=== PATIENT | female | born 1990 | race Caucasian/White ===

== ENCOUNTER 2017-04-11 07:52 | Emergency (ER) | payer MEDICAID ==
[~2017-04-11] VITALS: Ht 175.3 cm; Wt 90.7 kg
[~2017-04-11 07:52] MED LIST: AC325T GT; ACET1TAB43 PO; ACHD5005 PO; ALPR.5T PO; ALPR1T PO; AMOX-355 PO; BENZ56AE TP; BIRTH CONTROL; CLIN-62 PO; CODE-54 PO; CPR500T PO; DCS100C PO; DIPH25TA82 PO; ESCI20TA2 PO; ESCT10T PO; FERR-74 PO; FRS325T PO; HYDR-3583 PO; HYDR-3812 PO; HYDR-700 PO; HYDR1CAP2 PO; IBP600T1 PO; IBP800T PO; IBUP-1773 PO; IRON1TAB94 PO; LEVO175T5 PO; MTR500T; NAPR-243 PO; ONDAN4ODT PO; PENI500T PO; PRD20T PO; PREN-115 PO; PREN-46 PO; PRENATAL PLUS-1 EACH; PRM25T PO; PTU50T PO; SERT20OR PO; SULF1TAB38 PO; TRM50T PO
[2017-04-11 08:39] LABS: BILIRUBIN,URINE NEGATIVE (NEGATIVE); KETONES,URINE NEGATIVE (NEGATIVE); LEUKOCYTE ESTERASE ,URINE 1+ (NEGATIVE); NITRITE,URINE NEGATIVE (NEGATIVE); PH,URINE 6 (5-9); PROTEIN,URINE 3+ (NEGATIVE); UROBILINOGEN,URINE NORMAL (NORMAL)
[2017-04-11 08:39] LABS: BASOPHILS % (AUTO) 0 % (0-10); EOSINOPHILS # (AUTO) 0.1 10^3/uL (0.0-0.3); EOSINOPHILS % (AUTO) 1 % (0-10); LYMPHOCYTES # (AUTO) 1.4 X 10^3 (1.0-4.0); LYMPHOCYTES % (AUTO) 19 % (12-44); MEAN CORPUSCULAR HEMOGLOBIN 29 PG (25-34); MEAN CORPUSCULAR HGB CONC 34 G/DL (32-36); MEAN CORPUSCULAR VOLUME 86 FL (80-99); MEAN PLATELET VOLUME 10.6 FL (7.4-10.4); MONOCYTES # (AUTO) 0.5 X 10^3 (0.0-1.0); MONOCYTES % (AUTO) 6 % (0-12); NEUTROPHILS # (AUTO) 5.4 X 10^3 (1.8-7.8); NEUTROPHILS % (AUTO) 73 % (42-75); PLATELET COUNT 193 10^3/uL (130-400); RED BLOOD COUNT 5.06 10^6/uL (4.35-5.85); RED CELL DISTRIBUTION WIDTH 14.7 % (10.0-14.5); WHITE BLOOD COUNT 7.4 10^3/uL (4.3-11.0)
[2017-04-11 09:16] LABS: WBC,URINE 0-2 /HPF
--- NOTE | 2017-04-11 09:45 | ED GU-Female ---
General Chief Complaint: -Female Stated Complaint: ABD CRAMPING/BLOOD CLOTS Nursing Triage Note: AMBULATED TO ROOM 09 WITH COMPLAINTS OF STARTING HER PERIOD ON NORMAL TIME YESTERDAY BUT STATES SHE HAS PASSED X5-6 LARGE BLOOD CLOTS WHICH IS NOT NORMAL FOR HER. Nursing Sepsis Screen: No Definite Risk Source: patient Exam Limitations: no limitations History of Present Illness Time seen by provider: 09:41 Initial Comments The patient is a 26-year-old white female who presents with the complaints of suprapubic clotting and menstrual flow with blood clots. She states her period began yesterday and on time. She has never had cramps or clots before. She has 4 children ranging from 8 months through 8 years in age. There has been no fever or abdominal pain Timing/Duration: yesterday Severity/Quality: moderate Location: suprapubic Allergies and Home Medications Allergies Coded Allergies: Pertussis Vaccine,Adsorbed (Unverified Allergy, 02/01/11) alprazolam (Verified Allergy, 02/17/12) Home Medications No Active Prescriptions or Reported Meds Constitutional: see HPI EENTM: no symptoms reported Respiratory: no symptoms reported Cardiovascular: no symptoms reported Gastrointestinal: no symptoms reported Genitourinary: see HPI Musculoskeletal: no symptoms reported Skin: no symptoms reported Psychiatric/Neurological: No Symptoms Reported Endocrine: No Symptoms Reported Hematologic/Lymphatic: No Symptoms Reported Past Xwmkdxo-Qctrfw-Eaoqav Hx Patient Social History Alcohol Use: Denies Use Recreational Drug Use: No Smoking Status: Current Everyday Smoker Type Used: Cigarettes Recent Foreign Travel: No Contact w/Someone Who Travel: No Recent Infectious Disease Expo: No Recent Hopitalizations: No Immunizations Up To Date Tetanus Booster (TDap): Less than 5yrs PED Vaccines UTD: Yes Seasonal Allergies Seasonal Allergies: No Surgeries HX Surgeries: Yes (D&C) Surgeries: Tonsillectomy Respiratory Hx Respiratory Disorders: No Cardiovascular Hx Cardiac Disorders: No Neurological Hx Neurological Disorders: No Reproductive System Hx Reproductive Disorders: No Sexually Transmitted Disease: No HIV/AIDS: No Female Reproductive Disorders: Denies Genitourinary Hx Genitourinary Disorders: No Gastrointestinal Hx Gastrointestinal Disorders: No Musculoskeletal Hx Musculoskeletal Disorders: No Endocrine Hx Endocrine Disorders: Yes Endocrine Disorders: Hyperthyroidism HEENT HX ENT Disorders: No Cancer Hx Cancer: No Psychosocial Hx Psychiatric Problems: No Behavioral Health Disorders: Anxiety, Depression Integumentary HX Skin/Integumentary Disorder: No Blood Transfusions Hx Blood Disorders: No Adverse Reaction to a Blood Tr: No Physical Exam Vital Signs Vital Sign - Last 12Hours 04/11/17 08:00 Temp 98.0 Pulse 79 Resp 16 B/P (MAP) 121/87 Pulse Ox 98 Capillary Refill : Less Than 3 Seconds General Appearance: mild distress HEENT: normal ENT inspection Neck: full range of motion Cardiovascular: normal peripheral pulses, regular rate, rhythm, no edema, no gallop, no JVD, no murmur Respiratory: chest non-tender, lungs clear, normal breath sounds, no respiratory distress, no accessory muscle use, respiratory distress Gastrointestinal: normal bowel sounds, non tender, soft, no organomegaly, no pulsatile mass, abnormal bowel sounds 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, no motor/sensory deficits, alert, normal mood/affect, oriented x 3 Skin: normal color, warm/dry, cyanosis, cool, diaphoresis, pallor Lymphatic: no adenopathy Progress/Results/Core Measures Results/Orders Lab Results Laboratory Tests Test 04/11/17 08:27 04/11/17 08:30 04/11/17 08:36 Range/Units White Blood Count 7.4 4.3-11.0 10^3/uL Red Blood Count 5.06 4.35-5.85 10^6/uL Hemoglobin 14.6 11.5-16.0 G/DL Hematocrit 44 35-52 % Mean Corpuscular Volume 86 80-99 FL Mean Corpuscular Hemoglobin 29 25-34 PG Mean Corpuscular Hemoglobin Concent 34 32-36 G/DL Red Cell Distribution Width 14.7 H 10.0-14.5 % Platelet Count 193 130-400 10^3/uL Mean Platelet Volume 10.6 H 7.4-10.4 FL Neutrophils (%) (Auto) 73 42-75 % Lymphocytes (%) (Auto) 19 12-44 % Monocytes (%) (Auto) 6 0-12 % Eosinophils (%) (Auto) 1 0-10 % Basophils (%) (Auto) 0 0-10 % Neutrophils # (Auto) 5.4 1.8-7.8 X 10^3 Lymphocytes # (Auto) 1.4 1.0-4.0 X 10^3 Monocytes # (Auto) 0.5 0.0-1.0 X 10^3 Eosinophils # (Auto) 0.1 0.0-0.3 10^3/uL Basophils # (Auto) 0.0 0.0-0.1 10^3/uL Urine Color YELLOW Urine Clarity CLEAR Urine pH 6 5-9 Urine Specific [place] 1.025 H 1.016-1.022 Urine Protein 3+ H NEGATIVE Urine Glucose (UA) NEGATIVE NEGATIVE Urine Ketones NEGATIVE NEGATIVE Urine Nitrite NEGATIVE NEGATIVE Urine Bilirubin NEGATIVE NEGATIVE Urine Urobilinogen NORMAL NORMAL MG/DL Urine Leukocyte Esterase 1+ H NEGATIVE Urine RBC (Auto) 1+ H NEGATIVE Urine RBC RARE /HPF Urine WBC 0-2 /HPF Urine Squamous Epithelial Cells 2-5 /HPF Urine Crystals NONE /LPF Urine Bacteria TRACE /HPF Urine Casts NONE /LPF Urine Mucus SMALL H /LPF Urine Culture Indicated NO Urine Test NEGATIVE NEGATIVE My Orders Orders - TEE LOPEZ MD Cbc With Automated Diff (04/11/17 08:18) Ua Culture If Indicated (04/11/17 08:18) Hcg,Qualitative Urine (04/11/17 08:35) Vital Signs/I&O Vital Sign - Last 12Hours 04/11/17 08:00 Temp 98.0 Pulse 79 Resp 16 B/P (MAP) 121/87 Pulse Ox 98 Blood Pressure Mean: 98 Departure Impression Impression: Primary Impression: dysmenorrhea Disposition: 01 HOME, SELF-CARE Condition: Stable/Unchanged Departure-Patient Inst. Decision time for Depature: 09:43 Referrals: GLEN VOGEL DO (PCP/Family) Primary Care Physician Add. Discharge Instructions: All discharge instructions reviewed with patient and/or family. Voiced understanding. All the you have not suffered before cramps and clots are not unusual with normal periods In the future you can use ibuprofen 600 mg 3 or 4 times daily for menstrual cramps. Usually they are required only for 2 or 3 days during cycle. If problems consult your OB provider Scripts No Active Prescriptions or Reported Meds TEE LOPEZ MD Apr 11, 2017 09:45
[2017-04-11 09:49] VITALS: BP 122/90
== END 2017-04-11 09:49 | disposition home or self-care (01) ==
LOC: EDUNIT# 07:52 → ER 07:54
DX: N94.6 Dysmenorrhea, unspecified (principal); F17.210 Nicotine dependence, cigarettes, uncomplicated
CPT/HCPCS: 36415; 81000; 84703; 85025; 99283

== ENCOUNTER 2017-06-18 08:29 | Emergency (ER) | payer MEDICAID ==
[~2017-06-18] VITALS: Ht 175.3 cm; Wt 89.8 kg
[2017-06-18] MEDS ORDERED: LEVO50TA6 (08:48)
--- NOTE | 2017-06-18 09:03 | ED Respiratory ---
General Chief Complaint: Cough/Cold/Flu Symptoms Stated Complaint: N/V/COUGH,ACHES Nursing Triage Note: ARRIVED VIA AMB TO ROOM 06 WITHOUT DIFFICULTY. PT IS 10 WEEKS GESTATION AND COMPLAINS OF COUGH, SORE THROAT, RIGHT EARACHE, AND VOMITED X2 LAST NOC BUT NOT THIS AM. Source: patient Exam Limitations: no limitations History of Present Illness Time seen by provider: 08:47 Initial Comments Here with report of cough, sore throat, right earache and vomiting twice last night. Overall not feeling well but a little better today. She is concerned because she is was to work today and she has 3 children at home and was hopeful that there is some treatment available. Also complicated by the fact that she is 10 weeks and has Graves' disease. She is not vomiting this morning. Does complain of moderate nasal congestion. Reports fever subjectively at home as well as chills. Timing/Duration: yesterday, getting worse Severity: moderate Prior Episodes/Possible Cause: occasional episodes Associated Symptoms: cough, earache, fever/chills, nasal congestion, nasal drainage, No shortness of breath, sore throat, No wheezing Allergies and Home Medications Allergies Coded Allergies: Pertussis Vaccine,Adsorbed (Unverified Allergy, 02/01/11) alprazolam (Verified Allergy, 02/17/12) Home Medications Levothyroxine Sodium 50 Mcg Tablet, #30 (Reported) Constitutional: see HPI, chills, fever EENTM: see HPI, throat pain Respiratory: see HPI Cardiovascular: no symptoms reported Gastrointestinal: No diarrhea, nausea, vomiting Genitourinary: no symptoms reported : Yes Musculoskeletal: muscle pain (bodyaches) Skin: no symptoms reported All Other Systems Reviewed Negative Unless Noted: Yes Past Ehxadof-Jdjjvx-Jnkuzx Hx Patient Social History Alcohol Use: Denies Use Recreational Drug Use: No Smoking Status: Current Everyday Smoker Type Used: Cigarettes Recent Foreign Travel: No Contact w/Someone Who Travel: No Recent Infectious Disease Expo: No Recent Hopitalizations: No Immunizations Up To Date Tetanus Booster (TDap): Less than 5yrs PED Vaccines UTD: Yes Seasonal Allergies Seasonal Allergies: No Surgeries HX Surgeries: Yes (D&C) Surgeries: Tonsillectomy Respiratory Hx Respiratory Disorders: No Cardiovascular Hx Cardiac Disorders: No Neurological Hx Neurological Disorders: No Reproductive System Hx Reproductive Disorders: No Sexually Transmitted Disease: No HIV/AIDS: No Female Reproductive Disorders: Denies Genitourinary Hx Genitourinary Disorders: No Gastrointestinal Hx Gastrointestinal Disorders: No Musculoskeletal Hx Musculoskeletal Disorders: No Endocrine Hx Endocrine Disorders: Yes Endocrine Disorders: Hyperthyroidism HEENT HX ENT Disorders: No Cancer Hx Cancer: No Psychosocial Hx Psychiatric Problems: No Behavioral Health Disorders: Anxiety, Depression Integumentary HX Skin/Integumentary Disorder: No Blood Transfusions Hx Blood Disorders: No Adverse Reaction to a Blood Tr: No Reviewed Nursing Assessment Reviewed/Agree w Nursing PMH: Yes Family Medical History Significant Family History: No Pertinent Family Hx Physical Exam Vital Signs Vital Sign - Last 12Hours 06/18/17 08:39 Temp 96.9 Pulse 84 Resp 16 B/P (MAP) 139/92 Pulse Ox 99 Capillary Refill : Less Than 3 Seconds General Appearance: WD/WN, no apparent distress HEENT: PERRL/EOMI, pharyngeal erythema (mild with mild uvular swelling and erythema), other (moderate bilateral nasal congestion with clear rhinorrhea) Respiratory: lungs clear, normal breath sounds, other (course sounding cough) Cardiovascular: regular rate, rhythm, no murmur Gastrointestinal: non tender, soft Extremities: non-tender, normal inspection Neurologic/Psychiatric: alert, oriented x 3 Skin: normal color, warm/dry Progress/Results/Core Measures Results/Orders Vital Signs/I&O Vital Sign - Last 12Hours 06/18/17 08:39 Temp 96.9 Pulse 84 Resp 16 B/P (MAP) 139/92 Pulse Ox 99 Blood Pressure Mean: 108 Progress Note : Progress Note Seen and evaluated. Discharged home with return precautions. Patient verbalize understanding instructions and agreement with plan. Departure Impression Impression: Primary Impression: Upper respiratory infection Qualified Codes: J06.9 - Acute upper respiratory infection, unspecified Disposition: HOME, SELF-CARE Condition: Stable Departure-Patient Inst. Decision time for Depature: 09:02 Referrals: AMOS HENLEY DO (PCP) Primary Care Physician NAYA CALERO (Family) Primary Care Physician Patient Instructions: Nausea and Vomiting of (DC), Viral Upper Respiratory Infection, Adult (DC) Add. Discharge Instructions: All discharge instructions reviewed with patient and/or family. Voiced understanding. You may take Tylenol 1000 mg every 6 hours as needed for fever or pain. You may take Benadryl 25 mg every 6 hours as needed for nasal congestion. Clear liquid diet for 24 hours and then advance as tolerated. Follow-up with your Dr. in 2-3 days for recheck and further evaluation. Return for worse pain, fever, vomiting, weakness, breathing problems or other concerns as needed. Scripts Ondansetron (Ondansetron Odt) 4 Mg Tab.rapdis 4 MG PO Q6H Y for NAUSEA/VOMITING, #5 TAB 0 Refills Prov: JEREMIAH VICENTE MD 06/18/17 Work/School Note: Work Release Form Date Seen in the Emergency Department: Jun 18, 2017 Return to Work: Jun 20, 2017 Restrictions: No Restrictions JEREMIAH VICENTE MD Jun 18, 2017 09:03
[2017-06-18] MEDS ORDERED: ONDA4TAB11 PO (09:04)
[2017-06-18 09:08] VITALS: BP 139/92
== END 2017-06-18 09:08 | disposition home or self-care (01) ==
LOC: EDUNIT# 08:29 → ER 08:32
DX: O99.511 Diseases of the respiratory system complicating pregnancy, first trimester (principal); J06.9 Acute upper respiratory infection, unspecified; O99.341 Other mental disorders complicating pregnancy, first trimester; F41.9 Anxiety disorder, unspecified; F32.9 Major depressive disorder, single episode, unspecified; O99.281 Endocrine, nutritional and metabolic diseases complicating pregnancy, first trimester; E05.00 Thyrotoxicosis with diffuse goiter without thyrotoxic crisis or storm; O99.331 Smoking (tobacco) complicating pregnancy, first trimester; F17.210 Nicotine dependence, cigarettes, uncomplicated; Z90.89 Acquired absence of other organs
CPT/HCPCS: 99282

== ENCOUNTER 2017-08-08 19:02 | Emergency (ER) | payer MEDICAID ==
[~2017-08-08] VITALS: Ht 175.3 cm; Wt 89.9 kg
[~2017-08-08 19:02] MED LIST changes: +LEVO50TA6; +ONDA4TAB11 PO
[2017-08-08 19:33] LABS: BILIRUBIN,URINE NEGATIVE (NEGATIVE); KETONES,URINE NEGATIVE (NEGATIVE); LEUKOCYTE ESTERASE ,URINE NEGATIVE (NEGATIVE); NITRITE,URINE NEGATIVE (NEGATIVE); PH,URINE 7 (5-9); PROTEIN,URINE 2+ (NEGATIVE); UROBILINOGEN,URINE NORMAL (NORMAL)
--- NOTE | 2017-08-08 19:39 | ED Back Pain ---
General Chief Complaint: Back Problems Stated Complaint: LOWER BACK PAIN,17 WKS PREG Nursing Triage Note: C/O bilat flank pain without urinary sx. is 17 gravid. states at being on month was spilling protein and had 24 urine- waiting on results Nursing Sepsis Screen: No Definite Risk Source of Information: Patient Exam Limitations: No Limitations History of Present Illness Time Seen by Provider: 19:36 Initial Comments To ER with reports of bilateral flank pain since yesterday. No associated fevers chills nausea dysuria abdominal pain. She is 17 weeks G7. She states that usually during each of her pregnancies historically she develops either kidney stones or kidney infections. She denies any vaginal bleeding Timing/Duration: 1-2 Days Severity: Moderate Associated Symptoms: No fever, lower back pain Allergies and Home Medications Allergies Coded Allergies: Pertussis Vaccine,Adsorbed (Unverified Allergy, 02/01/11) alprazolam (Verified Allergy, 02/17/12) Home Medications Levothyroxine Sodium 50 Mcg Tablet, #30 (Reported) Ondansetron 4 Mg Tab.rapdis, 4 MG PO Q6H PRN for NAUSEA/VOMITING, #5 Ref 0 Prescribed by: JEREMIAH VICENTE on 06/18/17 0904 Constitutional: see HPI, No chills, No fever EENTM: see HPI Respiratory: no symptoms reported Cardiovascular: no symptoms reported Gastrointestinal: No abdominal pain, No nausea, No vomiting Genitourinary: no symptoms reported : Yes LMP: April 06, 2017 Control/STD Prophylaxis: None Musculoskeletal: see HPI, back pain Skin: no symptoms reported Past Amvjoyq-Umtunx-Semmne Hx Patient Social History Alcohol Use: Denies Use Recreational Drug Use: Yes (Previous history) Smoking Status: Current Everyday Smoker Type Used: Cigarettes Recent Foreign Travel: No Contact w/Someone Who Travel: No Recent Infectious Disease Expo: No Recent Hopitalizations: No Physical Abuse: No Sexual Abuse: No Mistreated: No Fear: No Immunizations Up To Date Tetanus Booster (TDap): Less than 5yrs PED Vaccines UTD: Yes Seasonal Allergies Seasonal Allergies: No Surgeries History of Surgeries: Yes (D&C) Surgeries: Tonsillectomy Respiratory History of Respiratory Disorde: No Cardiovascular History of Cardiac Disorders: No Neurological History of Neurological Disord: Yes Neurological Disorders: Headaches /Migraines Reproductive System Expected Date of Delivery: Jan 11, 2018 Hx : 4 Hx Para: 7 Hx Total # of Abortions (Spona: 3 Hx Reproductive Disorders: No Sexually Transmitted Disease: No HIV/AIDS: No Female Reproductive Disorders: Denies Genitourinary History of Genitourinary Disor: No Gastrointestinal History of Gastrointestinal Di: No Musculoskeletal History of Musculoskeletal Dis: No Endocrine History of Endocrine Disorders: Yes (GRAVES DZ) Endocrine Disorders: Hyperthyroidism HEENT History of HEENT Disorders: No Cancer History of Cancer: No Psychosocial History of Psychiatric Problem: No Behavioral Health Disorders: Anxiety, Depression Suicide Risk Score: 0 Integumentary History of Skin or Integumenta: No Blood Transfusions History of Blood Disorders: No Adverse Reaction to a Blood Tr: No Family Medical History Significant Family History: No Pertinent Family Hx Physical Exam Vital Signs Vital Sign - Last 12Hours 08/08/17 19:23 Pulse 77 Resp 18 B/P (MAP) 132/84 Pulse Ox 100 Capillary Refill : Less Than 3 Seconds General Appearance: No Apparent Distress, WD/WN HEENT: PERRL/EOMI, TMs Normal Neck: Full Range of Motion, Normal Inspection Cardiovascular: Regular Rate, Rhythm, Normal Peripheral Pulses Respiratory: Normal Breath Sounds, No Accessory Muscle Use, No Respiratory Distress Gastrointestinal: Normal Bowel Sounds, Non Tender, Soft Back: CVA Tenderness (L), CVA Tenderness (R) Extremity: Normal Capillary Refill, Normal Inspection, Normal Range of Motion Neurologic/Psychiatric: Alert, Oriented x3, No Motor/Sensory Deficits Skin: Normal Color, Warm/Dry Progress/Results/Core Measures Results/Orders Lab Results Laboratory Tests Test 08/08/17 19:20 08/08/17 19:40 Range/Units Urine Color YELLOW Urine Clarity CLEAR Urine pH 7 5-9 Urine Specific [place] 1.005 L 1.016-1.022 Urine Protein 2+ H NEGATIVE Urine Glucose (UA) NEGATIVE NEGATIVE Urine Ketones NEGATIVE NEGATIVE Urine Nitrite NEGATIVE NEGATIVE Urine Bilirubin NEGATIVE NEGATIVE Urine Urobilinogen NORMAL NORMAL MG/DL Urine Leukocyte Esterase NEGATIVE NEGATIVE Urine RBC (Auto) NEGATIVE NEGATIVE Urine RBC NONE /HPF Urine WBC 0-2 /HPF Urine Squamous Epithelial Cells 10-25 H /HPF Urine Crystals NONE /LPF Urine Bacteria FEW H /HPF Urine Casts NONE /LPF Urine Mucus NEGATIVE /LPF Urine Culture Indicated NO White Blood Count 9.5 4.3-11.0 10^3/uL Red Blood Count 4.15 L 4.35-5.85 10^6/uL Hemoglobin 12.3 11.5-16.0 G/DL Hematocrit 36 35-52 % Mean Corpuscular Volume 86 80-99 FL Mean Corpuscular Hemoglobin 30 25-34 PG Mean Corpuscular Hemoglobin Concent 35 32-36 G/DL Red Cell Distribution Width 13.3 10.0-14.5 % Platelet Count 199 130-400 10^3/uL Mean Platelet Volume 10.1 7.4-10.4 FL Neutrophils (%) (Auto) 70 42-75 % Lymphocytes (%) (Auto) 24 12-44 % Monocytes (%) (Auto) 5 0-12 % Eosinophils (%) (Auto) 1 0-10 % Basophils (%) (Auto) 0 0-10 % Neutrophils # (Auto) 6.6 1.8-7.8 X 10^3 Lymphocytes # (Auto) 2.3 1.0-4.0 X 10^3 Monocytes # (Auto) 0.5 0.0-1.0 X 10^3 Eosinophils # (Auto) 0.1 0.0-0.3 10^3/uL Basophils # (Auto) 0.0 0.0-0.1 10^3/uL Sodium Level 137 135-145 MMOL/L Potassium Level 3.1 L 3.6-5.0 MMOL/L Chloride Level 106 98-107 MMOL/L Carbon Dioxide Level 20 L 21-32 MMOL/L Anion Gap 11 5-14 MMOL/L Blood Urea Nitrogen 8 7-18 MG/DL Creatinine 0.57 L 0.60-1.30 MG/DL Estimat Glomerular Filtration Rate > 60 BUN/Creatinine Ratio 14 Glucose Level 89 70-105 MG/DL Calcium Level 8.8 8.5-10.1 MG/DL Total Bilirubin 0.2 0.1-1.0 MG/DL Aspartate Amino Transf (AST/SGOT) 7 5-34 U/L Alanine Aminotransferase (ALT/SGPT) < 6 0-55 U/L Alkaline Phosphatase 42 40-136 U/L Total Protein 6.6 6.4-8.2 GM/DL Albumin 3.8 3.2-4.5 GM/DL My Orders 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 Vicente and he agrees with the plan of care. Impression Impression: Primary Impression: Bilateral flank pain Disposition: HOME, SELF-CARE Condition: Stable Departure-Patient Inst. Decision time for Depature: 20:00 Referrals: AMOS HENLEY DO (PCP) Primary Care Physician NAYA CALERO (Family) Primary Care Physician Patient Instructions: Low Back Pain (DC) Add. Discharge Instructions: 1. Follow-up with Dr. Vogel 2. Return to ER for any concerns 3. All discharge instructions reviewed with patient and/or family. Voiced understanding. Copy Copies To 1: GLEN VOGEL PETER J APRN Aug 08, 2017 19:39
[2017-08-08 19:46] LABS: BASOPHILS % (AUTO) 0 % (0-10); EOSINOPHILS # (AUTO) 0.1 10^3/uL (0.0-0.3); EOSINOPHILS % (AUTO) 1 % (0-10); LYMPHOCYTES # (AUTO) 2.3 X 10^3 (1.0-4.0); LYMPHOCYTES % (AUTO) 24 % (12-44); MEAN CORPUSCULAR HEMOGLOBIN 30 PG (25-34); MEAN CORPUSCULAR HGB CONC 35 G/DL (32-36); MEAN CORPUSCULAR VOLUME 86 FL (80-99); MEAN PLATELET VOLUME 10.1 FL (7.4-10.4); MONOCYTES # (AUTO) 0.5 X 10^3 (0.0-1.0); MONOCYTES % (AUTO) 5 % (0-12); NEUTROPHILS # (AUTO) 6.6 X 10^3 (1.8-7.8); NEUTROPHILS % (AUTO) 70 % (42-75); PLATELET COUNT 199 10^3/uL (130-400); RED BLOOD COUNT 4.15 10^6/uL (4.35-5.85); RED CELL DISTRIBUTION WIDTH 13.3 % (10.0-14.5); WHITE BLOOD COUNT 9.5 10^3/uL (4.3-11.0)
[2017-08-08 19:47] LABS: WBC,URINE 0-2 /HPF
[2017-08-08 20:07] LABS: ALANINE AMINOTRANSFERASE < 6 U/L (0-55); ALBUMIN 3.8 GM/DL (3.2-4.5); ANION GAP 11 MMOL/L (5-14); ASPARTATE AMINO TRANSFERASE 7 U/L (5-34); BILIRUBIN,TOTAL 0.2 MG/DL (0.1-1.0); BLOOD UREA NITROGEN 8 MG/DL (7-18); BUN/CREATININE RATIO 14; CALCIUM 8.8 MG/DL (8.5-10.1); CARBON DIOXIDE 20 MMOL/L (21-32); CHLORIDE 106 MMOL/L (98-107); CREATININE SERUM 0.57 MG/DL (0.60-1.30); GFR ESTIMATED > 60; GLUCOSE 89 MG/DL (70-105); POTASSIUM 3.1 MMOL/L (3.6-5.0); SODIUM 137 MMOL/L (135-145); TOTAL PROTEIN 6.6 GM/DL (6.4-8.2)
[2017-08-08] MEDS ORDERED: KCL 10 MEQ TAB (MICRO K) PO ONE (20:15)
[2017-08-08 20:34] VITALS: BP 130/70
== END 2017-08-08 20:31 | disposition home or self-care (01) ==
LOC: EDUNIT# 19:02 → ER 19:04
DX: O26.892 Other specified pregnancy related conditions, second trimester (principal); R10.31 Right lower quadrant pain; R10.32 Left lower quadrant pain; O99.282 Endocrine, nutritional and metabolic diseases complicating pregnancy, second trimester; E05.90 Thyrotoxicosis, unspecified without thyrotoxic crisis or storm; O99.342 Other mental disorders complicating pregnancy, second trimester; F41.9 Anxiety disorder, unspecified; F32.9 Major depressive disorder, single episode, unspecified; O99.352 Diseases of the nervous system complicating pregnancy, second trimester; G43.909 Migraine, unspecified, not intractable, without status migrainosus; O99.332 Smoking (tobacco) complicating pregnancy, second trimester; F17.210 Nicotine dependence, cigarettes, uncomplicated; Z3A.17 17 weeks gestation of pregnancy; Z90.89 Acquired absence of other organs
CPT/HCPCS: 36415; 80053; 81000; 85025; 99283

== ENCOUNTER → 2017-08-23 | Outpatient (CLI) | payer MEDICAID ==
--- NOTE | 2017-08-23 15:27 | Diagnostic Imaging Report ---
INDICATION: anatomy survey. TECHNIQUE: Multiple real-time grayscale images were obtained over the gravid uterus. COMPARISON: None. FINDINGS: There is a single live intrauterine with heart rate of 135 beats per minute. Fetus is in transverse lie. Placenta is posterior and fundal in location without previa. biometric data is supplied below. anatomy survey was performed and the following structures were visualized and normal: Stomach, umbilical cord insertion, kidneys, four-chamber heart, cerebellum, cisterna magna, and urinary bladder. The spine and cerebral ventricles were poorly evaluated. Biometrical measurements are as follows: Biparietal 4.62 cm, age 20 weeks 0 days. Head circumference 16.42 cm, age 19 weeks 2 days. Abdominal circumference 14.27 cm, age 19 weeks 5 days. Femur length 2.79 cm, age 18 weeks 4 days. Sonographic estimate age: 19 weeks 3 days. Sonographic estimated date of delivery: 01-14-18. Estimated Weight: 277 gm (+/- 40 gm). LMP percentile: 13%. heart rate: 135 beats per minute. number: 1 of 1 IMPRESSION: 1. spine and cerebral ventricles were suboptimally evaluated. Otherwise, anatomy survey is normal. Short-term followup focused anatomy survey on the nonvisualized structures is advised. Dictated by: Dictated on workstation # [id number]
== END ==
LOC: RAD 12:38
PROVIDERS: ATTEND Obstetrics & Gynecology
DX: Z36.87 Encounter for antenatal screening for uncertain dates (principal); Z3A.00 Weeks of gestation of pregnancy not specified
CPT/HCPCS: 76805

== ENCOUNTER → 2017-10-24 | Outpatient (CLI) | payer MEDICAID ==
--- NOTE | 2017-10-24 13:00 | Diagnostic Imaging Report ---
INDICATION: Evaluate anatomy. TECHNIQUE: Multiple real-time grayscale images were obtained over the gravid uterus. COMPARISON: 08/23/2017. FINDINGS: Tran gestation in cephalic position measures 28 week 5 day reflective of normal interval growth. The intracranial structures and the spine appeared unremarkable on followup surveillance. Placenta is eccentric to the left. There was no abruption or previa. There is a normal volume amniotic fluid. Biometrical measurements are as follows: Biparietal 7.50 cm, age 30 weeks 1 days. Head circumference 26.05 cm, age 28 weeks 3 days. Abdominal circumference 24.4 cm, age 28 weeks 5 days. Femur length 5.11 cm, age 27 weeks 3 days. Sonographic estimate age: 28 weeks 5 days. Sonographic estimated date of delivery: 01/11/2018. Estimated Weight: 1203 gm (+/- 176 gm). LMP percentile: 23%. heart rate: 140 beats per minute. number: 1 of 1. IMPRESSION: Followup ultrasound shows normal appearance of the spine and intracranial structures with normal interval growth and no adverse development. Dictated by: Dictated on workstation # [id number]
== END ==
LOC: RAD 11:58
PROVIDERS: ATTEND Obstetrics & Gynecology
DX: Z36.2 Encounter for other antenatal screening follow-up (principal); Z3A.38 38 weeks gestation of pregnancy
CPT/HCPCS: 76816

== ENCOUNTER 2017-11-28 18:48 | Outpatient (CLI) | payer MEDICAID ==
[~2017-11-28 18:48] MED LIST changes: -FERR-74 PO; +FERR325T18 PO; -HYDR-3812 PO
[2017-11-28 18:50] VITALS: BP 128/75
[2017-11-28 19:11] LABS: BILIRUBIN,URINE NEGATIVE (NEGATIVE); CLARITY,URINE CLEAR; COLOR,URINE YELLOW; GLUCOSE, URINE (UA) NEGATIVE (NEGATIVE); KETONES,URINE NEGATIVE (NEGATIVE); LEUKOCYTE ESTERASE ,URINE 3+ (NEGATIVE); NITRITE,URINE NEGATIVE (NEGATIVE); PH,URINE 7 (5-9); PROTEIN,URINE 2+ (NEGATIVE); UROBILINOGEN,URINE NORMAL (NORMAL)
[2017-11-28 19:28] LABS: BACTERIA,URINE LARGE /HPF
[2017-11-28] MEDS ORDERED: ACHD5005 PO (19:32)
[2017-11-28] MEDS ORDERED: NITR-65 PO (19:33)
[2017-11-28 20:02] LABS: BILIRUBIN,URINE NEGATIVE (NEGATIVE); CLARITY,URINE CLEAR; COLOR,URINE YELLOW; GLUCOSE, URINE (UA) NEGATIVE (NEGATIVE); KETONES,URINE NEGATIVE (NEGATIVE); LEUKOCYTE ESTERASE ,URINE 1+ (NEGATIVE); NITRITE,URINE NEGATIVE (NEGATIVE); PH,URINE 7 (5-9); PROTEIN,URINE 2+ (NEGATIVE); UROBILINOGEN,URINE NORMAL (NORMAL)
[2017-11-28 20:14] LABS: WBC,URINE 0-2 /HPF
[2017-11-28] MEDS ORDERED: METR500T PO (20:57)
[2017-11-28] MEDS ORDERED: fluCOnazole (DIFLUCAN) 100 MG TAB PO SCH (21:00)
--- NOTE | 2017-11-29 07:33 | Physician Query-Final Dx ---
TRAN MCNAMARA 11/29/17 0733: Clinic Account Progress/Dx Physician Query: Please give diagnosis Date of Service Nov 28, 2017 at 18:48 RED ROMERO DO 11/29/17 0934: Clinic Account Progress/Dx DIAGNOSIS: Diagnosis 33 week iup Cramping Vaginal discharge TRAN MCNAMARA Nov 29, 2017 07:33 RED ROMERO DO Nov 29, 2017 09:34
== END 2017-11-28 21:14 | disposition home or self-care (01) ==
LOC: LDRP 18:48 → WSo 18:48
PROVIDERS: ATTEND Obstetrics & Gynecology
DX: O26.893 Other specified pregnancy related conditions, third trimester (principal); N89.8 Other specified noninflammatory disorders of vagina; Z3A.33 33 weeks gestation of pregnancy
CPT/HCPCS: 81000; 87088; 87210; 99214

== ENCOUNTER 2018-01-06 07:51 | Inpatient (IN) | payer MEDICAID ==
[~2018-01-06] VITALS: Ht 175.3 cm; Wt 87.2 kg
[2018-01-06] VITALS (62 sets, daily range): BP systolic 100–131; BP diastolic 54–83
[~2018-01-06 07:51] MED LIST changes: +METR500T PO; +NITR-65 PO
--- OUTSIDE RECORDS SUMMARY | 2018-01-06 07:56 | XMS REPORT ---
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 370812930 Problem Hypothyroidism, unspecified type E03.9 Active 58283392 Problem Encounter for long-term (current) use of other medications V58.69 Active 968618238 Problem Major depressive disorder, recurrent episode, moderate 296.32 Active 27140694 Problem Combinations of drug dependence excluding opioid type drug, 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
--- OUTSIDE RECORDS SUMMARY | 2018-01-06 07:56 | XMS REPORT ---
Author Author NAYA CALERO [facility] Address [address] [place] [address] Care Team Providers Care Clinical Services Assistant Name Role Phone NAYA CALERO Unavailable PROBLEMS Type Condition ICD9-CM Code UHE21-GB Code Onset Dates Condition Status SNOMED Code Problem Postablative hypothyroidism E89.0 Active 442227742 Problem Hypothyroidism, unspecified type E03.9 Active 12564984 Problem Encounter for long-term (current) use of other medications V58.69 Active 004224105 Problem Major depressive disorder, recurrent episode, moderate 296.32 Active 18932430 Problem Combinations of drug dependence excluding opioid type drug, 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 [id number] ALLERGIES No Information SOCIAL HISTORY Never Assessed PLAN OF CARE VITAL SIGNS MEDICATIONS No Known Medications RESULTS Name Result Date Reference Range TSH 2017-04-04 TSH 35.890 0.450-4.500 CBC 2017-04-04 WBC 8.9 3.4-10.8 RBC 4.89 3.77-5.28 Hemoglobin 14.1 11.1-15.9 Hematocrit 42.4 34.0-46.6 MCV 87 79-97 MCH 28.8 26.6-33.0 MCHC 33.3 31.5-35.7 RDW 14.3 12.3-15.4 Platelets 189 150-379 Neutrophils 60 Lymphs 34 Monocytes 5 Eos 1 Basos 0 Immature Cells Neutrophils (Absolute) 5.3 1.4-7.0 Lymphs (Absolute) 3.0 0.7-3.1 Monocytes(Absolute) 0.4 0.1-0.9 Eos (Absolute) 0.1 0.0-0.4 Baso (Absolute) 0.0 0.0-0.2 Immature Granulocytes 0 Immature Grans (Abs) 0.0 0.0-0.1 NRBC Hematology Comments: CMP 2017-04-04 Glucose, Serum 81 65-99 BUN 14 6-20 Creatinine, Serum 0.70 0.57-1.00 eGFR If NonAfricn Am 120 >59 eGFR If Africn Am 138 >59 BUN/Creatinine Ratio 20 9-23 Sodium, Serum 140 134-144 Potassium, Serum 4.1 3.5-5.2 Chloride, Serum 103 96-106 Carbon Dioxide, Total 19 18-29 Calcium, Serum 9.0 8.7-10.2 Protein, Total, Serum 7.0 6.0-8.5 Albumin, Serum 4.6 3.5-5.5 Globulin, Total 2.4 1.5-4.5 A/G Ratio 1.9 1.2-2.2 Bilirubin, Total 0.3 0.0-1.2 Alkaline Phosphatase, S 44 39-117 AST (SGOT) 12 0-40 ALT (SGPT) 8 0-32 PROCEDURES Procedure Date Ordered Result Body Site ASSAY THYROID STIM HORMONE April 04, 2017 COMPLETE CBC W/AUTO DIFF WBC April 04, 2017 VENIPUNCT, ROUTINE* April 04, 2017 COMPREHEN METABOLIC PANEL April 04, 2017 IMMUNIZATIONS No Known Immunizations MEDICAL (GENERAL) HISTORY Type Description Date Medical History thyroid Surgical History DN 2008 Surgical History Tonsils Removed 2005 Surgical History Thyroid Ablation Surgical History Thyroid Ablation Hospitalization History Child Hospitalization History kidney stones
--- OUTSIDE RECORDS SUMMARY | 2018-01-06 07:57 | XMS REPORT | Continuity of Care Document ---
Author Author [facility] Address Unknown Phone Unavailable Allergies Active Description Code Type Severity Reaction Onset Reported/Identified Relationship to Patient Clinical Status Yes pertussis injection OA 11/20/2011 Yes alprazolam [id number] Drug Allergy Unknown N/A 11/28/2017 Yes pertussis vaccine,adsorbed [id number] Drug Allergy Unknown N/A 2017 Medications There is no data. Problems Date Dx Coded Attending Type Code Diagnosis Diagnosed By 09/27/2010 CHARLEEN FISHER APRN 296.22 MO DEPRESSIVE SINGLE MODERATE 10/13/2010 CHARLEEN FISHER APRN 300.02 AN GEN ANXIETY 11/21/2010 Ot 611.0 INFLAM DISEASE OF BREAST 12/01/2010 PHILLIP RAI CHARLEEN ANDREW 296.21 MO DEPRESS SINGLE MILD 12/01/2010 CHARLEEN FISHER APRN 300.00 AN ANXIETY UNSPEC 12/21/2010 PHILLIP RAI CHARLEEN ANDREW 296.90 MO MOOD DIS NOS 05/14/2011 Ot 644.03 THRT DEJUAN LABOR-ANTEPART 05/23/2011 Ot 644.03 THRT DEJUAN LABOR-ANTEPART 06/04/2011 Ot 590.10 AC PYELONEPHRITIS NOS 06/04/2011 Ot 646.63 INFECTION -ANTEPARTUM 06/04/2011 Ot 649.03 TOBACCO USE DISOR COMP PREG/CHILDBIRTH/P 07/20/2011 Ot 311 DEPRESSIVE DISORDER NEC 07/20/2011 Ot 648.41 MENTAL DISORDER-DELIVER 07/20/2011 Ot 649.01 TOBACCO USE DISORDER COMP PREG/CHILDBIRT 07/20/2011 Ot 663.31 CORD ENTANGLE NEC-DELIV 07/20/2011 Ot V23.49 PREG W POOR OBSTECTRIC HISTORY 07/20/2011 Ot V27.0 DELIVER- SINGLE LIVEBORN 11/20/2011 CHARLEEN FISHER APRN 296.32 MO DEPRESSIVE RECURRENT MODERATE 12/04/2011 Ot 944.00 BURN NOS HAND-UNSPEC 12/04/2011 Ot E000.8 OTHER EXTERNAL CAUSE STATUS 12/04/2011 Ot E015.2 ACTIVITIES INVOLVING COOKING AND BAKING 12/04/2011 Ot E849.0 ACCIDENT IN HOME 12/04/2011 Ot E924.8 HOT SUBSTANCE ACCID NEC 01/01/2012 CHARLEEN FISHER APRN V58.69 MEDICATION HIGH RISK 02/17/2012 Ot 708.9 URTICARIA NOS 02/17/2012 Ot 782.1 NONSPECIF SKIN ERUPT NEC 02/17/2012 Ot 276.8 HYPOPOTASSEMIA 02/17/2012 Ot 780.2 SYNCOPE AND COLLAPSE 02/19/2012 CHARLEEN FISHER APRN 304.80 SA POLYSUB DEP 03/06/2012 Ot 708.9 URTICARIA NOS 03/06/2012 Ot 782.1 NONSPECIF SKIN ERUPT NEC 03/12/2012 Ot 611.0 INFLAM DISEASE OF BREAST 03/12/2012 Ot 709.9 SKIN DISORDER NOS 03/28/2012 Ot 842.00 SPRAIN OF WRIST NOS 03/28/2012 Ot 959.3 ELB/FOREARM/ WRST INJ NOS 03/28/2012 Ot E000.8 OTHER EXTERNAL CAUSE STATUS 03/28/2012 Ot E849.0 ACCIDENT IN HOME 03/28/2012 Ot E885.9 FALL FROM SLIPPING, TRIPPING, OR STUMBLI 04/07/2012 Ot 276.50 VOLUME DEPLETION, UNSPECIFIED 04/07/2012 Ot 787.03 VOMITING ALONE 04/07/2012 Ot 787.91 DIARRHEA 04/17/2012 Ot 611.0 INFLAM DISEASE OF BREAST 05/23/2012 Ot 034.0 STREP SORE THROAT 05/23/2012 Ot 462 ACUTE PHARYNGITIS 10/10/2012 Ot 276.51 DEHYDRATION 10/10/2012 Ot 787.03 VOMITING ALONE 10/10/2012 Ot 787.91 DIARRHEA 12/22/2012 Ot 625.9 FEM GENITAL SYMPTOMS NOS 12/22/2012 Ot 640.03 THREATEN ABORT-ANTEPART 12/22/2012 Ot 651.03 TWIN -ANTEPART 12/22/2012 Ot V91.09 TWIN GEST, UNABLE TO DETERMINE # OF PLAC 01/31/2013 Ot 648.93 OTH CURR COND-ANTEPARTUM 01/31/2013 Ot 924.20 CONTUSION OF FOOT 01/31/2013 Ot 959.7 LOWER LEG INJURY NOS 01/31/2013 Ot E000.8 OTHER EXTERNAL CAUSE STATUS 01/31/2013 Ot E849.0 ACCIDENT IN HOME 01/31/2013 Ot E917.4 STAT OB W/O SUB FALL NEC 03/22/2013 STEPHANIE MORENO MD Ot 648.93 OTH CURR COND-ANTEPARTUM 03/22/2013 STEPHANIE MORENO MD Ot 789.00 ABDOMINAL PAIN, UNSPECIFIED SITE 03/22/2013 STEPHANIE MORENO MD Ot E000.8 OTHER EXTERNAL CAUSE STATUS 03/22/2013 STEPHANIE MORENO MD Ot E849.0 ACCIDENT IN HOME 03/22/2013 STEPHANIE MORENO MD Ot E880.9 FALL ON STAIR/STEP NEC 04/06/2013 GLEN VOGEL DO Ot 242.90 THYROTOX NOS NO CRISIS 04/06/2013 GLEN VOGEL DO Ot 591 HYDRONEPHROSIS 04/06/2013 GLEN VOGEL DO Ot 592.0 CALCULUS OF KIDNEY 04/06/2013 GLEN VOGEL DO Ot 646.83 PREG COMPL NEC-ANTEPART 04/06/2013 GLEN VOGEL DO Ot 648.13 THYROID DYSFUNC-ANTEPART 04/06/2013 GLEN VOGEL DO Ot 649.03 TOBACCO USE DISOR COMP PREG/CHILDBIRTH/P 05/29/2013 GLEN VOGEL DO Ot 242.00 TOX DIF GOITER NO CRISIS 05/29/2013 GLEN VOGEL DO Ot 591 HYDRONEPHROSIS 05/29/2013 GLEN VOGEL DO Ot 592.0 CALCULUS OF KIDNEY 05/29/2013 GLEN VOGEL DO Ot 648.13 THYROID DYSFUNC-ANTEPART 05/29/2013 GLEN VOGEL DO Ot 648.93 OTH CURR COND-ANTEPARTUM 05/29/2013 GLEN VOGEL DO Ot 651.33 TW PREG W/ LOSS RETEN,1 FETUS,ANT 05/29/2013 GLEN VOGEL DO Ot 791.9 ABN URINE FINDINGS NEC 05/29/2013 GLEN VOGEL DO Ot V91.00 TWIN GEST, UNSPEC # PLACENTA, UNSP # AMN 06/17/2013 GLEN VOGEL DO Ot 591 HYDRONEPHROSIS 06/17/2013 GLEN VOGEL DO Ot 641.13 PLACEN PREV HEM-ANTEPART 06/17/2013 GLEN VOGEL DO Ot 646.63 INFECTION-ANTEPARTUM 06/17/2013 GLEN VOGEL DO Ot 648.23 ANEMIA-ANTEPARTUM 07/02/2013 GLEN VOGEL DO Ot 242.00 TOX DIF GOITER NO CRISIS 07/02/2013 GLEN VOGEL DO Ot 285.1 AC POSTHEMORRHAG ANEMIA 07/02/2013 GLEN VOGEL DO Ot 288.60 LEUKOCYTOSIS, UNSPECIFIED 07/02/2013 GLEN VOGEL DO Ot 641.21 DEJUAN SEPAR PLACEN-DELIV 07/02/2013 GLEN VOGEL DO Ot 644.21 EARLY ONSET DELIVERY-DEL 07/02/2013 GLEN VOGEL DO Ot 646.81 PREG COMPL NEC-DELIVERED 07/02/2013 GLEN VOGEL DO Ot 648.11 THYROID DYSFUNC-DELIVER 07/02/2013 GLEN VOGEL DO Ot 648.21 ANEMIA-DELIVERED 07/02/2013 GLEN VOGEL DO Ot 649.01 TOBACCO USE DISORDER COMP PREG/CHILDBIRT 07/02/2013 GLEN VOGEL DO Ot 651.31 TW PREG W/ LOSS RETEN,1 FETUS,DEL 07/02/2013 GLEN VOGEL DO Ot 659.71 ABN DEL FET HT RT/RHYTHM,W OR W/O MENTIO 07/02/2013 GLEN VOGEL DO Ot V27.3 DEL-TWINS, 1 NB, 1 SB 07/02/2013 GLEN VOGEL DO Ot V91.09 TWIN GEST, UNABLE TO DETERMINE # OF PLAC 04/07/2016 Ot 240.9 GOITER NOS 04/07/2016 Ot 648.13 THYROID DYSFUNC-ANTEPART 04/07/2016 Ot 240.9 GOITER NOS 04/07/2016 Ot 648.13 THYROID DYSFUNC-ANTEPART 04/07/2016 KENNEDY HELTON MD Ot O47.9 FALSE LABOR, UNSPECIFIED 04/07/2016 SUNITHA BRIGGS, KENNEDY Lee Ot Z3A.00 WEEKS OF GESTATION OF NOT SPEC 04/13/2016 SUNITHA BRIGGS, KENNEDY Lee Ot O47.9 FALSE LABOR, UNSPECIFIED 04/13/2016 SUNITHA BRIGGS, KENNEDY Lee Ot Z3A.00 WEEKS OF GESTATION OF NOT SPEC 06/06/2016 VOGEL DO, GLEN C Ot O26.93 RELATED CONDITIONS, UNSPECIFIE 06/06/2016 VOGEL DO, GLEN C Ot Z3A.00 WEEKS OF GESTATION OF NOT SPEC 06/08/2016 VOGEL DO, GLEN C Ot O26.93 RELATED CONDITIONS, UNSPECIFIE 06/08/2016 VOGEL DO, GLEN C Ot Z3A.00 WEEKS OF GESTATION OF NOT SPEC 06/10/2016 NICK DO RED Saravanan Ot Z34.93 ENCNTR FOR SUPRVSN OF NORMAL PREG, UNSP, 06/13/2016 VOGEL DO, GLEN C Ot O26.93 RELATED CONDITIONS, UNSPECIFIE 06/13/2016 VOGEL DO, GLEN C Ot Z3A.00 WEEKS OF GESTATION OF NOT SPEC 06/23/2016 VOGEL DO, GLEN C Ot D64.9 ANEMIA, UNSPECIFIED 06/23/2016 VOGLE DO, GLEN C Ot E03.9 HYPOTHYROIDISM, UNSPECIFIED 06/23/2016 VOGEL DO, GLEN C Ot O09.213 SUPRVSN OF PREG W HISTORY OF PRE-TERM LA 06/23/2016 VOGEL DO, GLEN C Ot O48.0 POST-TERM 06/23/2016 VOGEL DO, GLEN C Ot O99.013 ANEMIA COMPLICATING , THIRD TRI 06/23/2016 VOGEL DO, GLEN C Ot O99.284 ENDOCRINE, NUTRITIONAL AND METABOLIC DIS 06/23/2016 VOGEL DO, GLEN C Ot Z37.0 SINGLE LIVE 06/23/2016 VOGEL DO, GLEN C Ot Z3A.40 40 WEEKS GESTATION OF 06/29/2016 Ot 240.9 GOITER NOS 06/29/2016 Ot 648.13 THYROID DYSFUNC-ANTEPART 04/11/2017 Ot 240.9 GOITER NOS 04/11/2017 Ot 648.13 THYROID DYSFUNC-ANTEPART 04/11/2017 JOHN BRIGGS, TEE Honeycutt Ot F17.210 NICOTINE DEPENDENCE, CIGARETTES, UNCOMPL 04/11/2017 TEE LOPEZ MD Ot N93.9 ABNORMAL UTERINE AND VAGINAL BLEEDING, U 04/11/2017 TEE LOPEZ MD Ot N94.6 DYSMENORRHEA, UNSPECIFIED 04/11/2017 Ot 240.9 GOITER NOS 04/11/2017 Ot 648.13 THYROID DYSFUNC-ANTEPART 04/14/2017 TEE LOPEZ MD Ot F17.210 NICOTINE DEPENDENCE, CIGARETTES, UNCOMPL 04/14/2017 TEE LOPEZ MD Ot N93.9 ABNORMAL UTERINE AND VAGINAL BLEEDING, U 04/14/2017 TEE LOPEZ MD Ot N94.6 DYSMENORRHEA, UNSPECIFIED 06/18/2017 Ot 240.9 GOITER NOS 06/18/2017 Ot 648.13 THYROID DYSFUNC-ANTEPART 06/18/2017 JEREMIAH VICENTE MD Ot 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 06/18/2017 JEREMIAH VICENTE MD Ot F17.210 NICOTINE DEPENDENCE, CIGARETTES, UNCOMPL 06/18/2017 JEREMIAH VICENTE MD Ot F32.9 MAJOR DEPRESSIVE DISORDER, SINGLE EPISOD 06/18/2017 JEREMIAH VICENTE MD Ot F41.9 ANXIETY DISORDER, UNSPECIFIED 06/18/2017 JEREMIAH VICENTE MD Ot J06.9 ACUTE UPPER RESPIRATORY INFECTION, UNSPE 06/18/2017 JEREMIAH VICENTE MD Ot O99.281 ENDO, NUTRITIONAL AND METAB DISEASES COM 06/18/2017 JEREMIAH VICENTE MD Ot O99.331 SMOKING (TOBACCO) COMPLICATING 06/18/2017 JEREMIAH VICENTE MD Ot O99.341 OTH MENTAL DISORDERS COMPLICATING PREGNA 06/18/2017 JEREMIAH VICENTE MD Ot O99.511 DISEASES OF THE RESP SYS COMP , 06/18/2017 JEREMIAH VICENTE MD Ot Z90.89 ACQUIRED ABSENCE OF OTHER ORGANS 06/20/2017 JEREMIAH VICENTE MD Ot 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 06/20/2017 JEREMIAH VICENTE MD Ot F17.210 NICOTINE DEPENDENCE, CIGARETTES, UNCOMPL 06/20/2017 JEREMIAH VICENTE MD Ot F32.9 MAJOR DEPRESSIVE DISORDER, SINGLE EPISOD 06/20/2017 JEREMIAH VICENTE MD Ot F41.9 ANXIETY DISORDER, UNSPECIFIED 06/20/2017 JEREMIAH VICENTE MD Ot J06.9 ACUTE UPPER RESPIRATORY INFECTION, UNSPE 06/20/2017 JEREMIAH VICENTE MD Ot O99.281 ENDO, NUTRITIONAL AND METAB DISEASES COM 06/20/2017 JEREMIAH VICENTE MD Ot O99.331 SMOKING (TOBACCO) COMPLICATING 06/20/2017 JEREMIAH VICENTE MD Ot O99.341 OTH MENTAL DISORDERS COMPLICATING PREGNA 06/20/2017 JEREMIAH VICENTE MD Ot O99.511 DISEASES OF THE RESP SYS COMP , 06/20/2017 JEREMIAH VICENTE MD Ot Z90.89 ACQUIRED ABSENCE OF OTHER ORGANS 08/08/2017 PRAFUL RAY APRN Ot E05.90 THYROTOXICOSIS, UNSP WITHOUT THYROTOXIC 08/08/2017 PRAFUL RAY APRN Ot F17.210 NICOTINE DEPENDENCE, CIGARETTES, UNCOMPL 08/08/2017 PRAFUL RAY APRN Ot F32.9 MAJOR DEPRESSIVE DISORDER, SINGLE EPISOD 08/08/2017 PRAFUL RAY APRN Ot F41.9 ANXIETY DISORDER, UNSPECIFIED 08/08/2017 PRAFUL RAY APRN Ot G43.909 MIGRAINE, UNSP, NOT INTRACTABLE, WITHOUT 08/08/2017 PRAFUL RAY APRN Ot O26.892 OTH RELATED CONDITIONS, SECOND 08/08/2017 PRAFUL RAY APRN Ot O99.282 ENDO, NUTRITIONAL AND METAB DISEASES COM 08/08/2017 PRAFUL RAY APRN Ot O99.332 SMOKING (TOBACCO) COMPLICATING 08/08/2017 PRAFUL RAY APRN Ot O99.342 OTH MENTAL DISORDERS COMP , SEC 08/08/2017 PRAFUL RAY APRN Ot O99.352 DISEASES OF THE NERVOUS SYS COMP PREGNAN 08/08/2017 PRAFUL RAY APRN Ot R10.31 RIGHT LOWER QUADRANT PAIN 08/08/2017 PRAFUL RAY APRN Ot R10.32 LEFT LOWER QUADRANT PAIN 08/08/2017 PRAFUL RAY APRN Ot Z3A.17 17 WEEKS GESTATION OF 08/08/2017 PRAFUL RAY APRN Ot Z90.89 ACQUIRED ABSENCE OF OTHER ORGANS 08/21/2017 Ot 240.9 GOITER NOS 08/21/2017 Ot 648.13 THYROID DYSFUNC-ANTEPART 08/29/2017 VOGEL DO GLEN C Ot Z36.87 ENCOUNTER FOR SCREENING FOR UN 08/29/2017 VOGEL DO, GLEN C Ot Z3A.00 WEEKS OF GESTATION OF NOT SPEC 09/17/2017 VOGEL DO GLEN C Ot Z36.87 ENCOUNTER FOR SCREENING FOR UN 09/17/2017 VOGEL DO, GLEN C Ot Z3A.00 WEEKS OF GESTATION OF NOT SPEC 10/14/2017 VOGEL DO GLEN C Ot Z36.87 ENCOUNTER FOR SCREENING FOR UN 10/14/2017 VOGEL DO, GLEN C Ot Z3A.00 WEEKS OF GESTATION OF NOT SPEC 10/14/2017 Ot 240.9 GOITER NOS 10/14/2017 Ot 648.13 THYROID DYSFUNC-ANTEPART 10/14/2017 VOGEL DO GLEN C Ot Z36.87 ENCOUNTER FOR SCREENING FOR UN 10/14/2017 VOGEL DO, GLEN C Ot Z3A.00 WEEKS OF GESTATION OF NOT SPEC 10/15/2017 Ot 240.9 GOITER NOS 10/15/2017 Ot 648.13 THYROID DYSFUNC-ANTEPART 10/15/2017 VOGEL DO GLEN C Ot Z36.87 ENCOUNTER FOR SCREENING FOR UN 10/15/2017 VOGEL DO, GLEN C Ot Z3A.00 WEEKS OF GESTATION OF NOT SPEC 10/24/2017 Ot 240.9 GOITER NOS 10/24/2017 Ot 648.13 THYROID DYSFUNC-ANTEPART 10/24/2017 VOGEL DO GLEN C Ot Z36.87 ENCOUNTER FOR SCREENING FOR UN 10/24/2017 VOGEL DO, GLEN C Ot Z3A.00 WEEKS OF GESTATION OF NOT SPEC 10/25/2017 VOGEL DO GLEN C Ot Z36.87 ENCOUNTER FOR SCREENING FOR UN 10/25/2017 VOGEL DO, GLEN C Ot Z3A.00 WEEKS OF GESTATION OF NOT SPEC 11/08/2017 VOGEL DO GLEN C Ot Z36.2 ENCOUNTER FOR OTHER SCREENING 11/08/2017 VOGEL DO GLEN C Ot Z3A.38 38 WEEKS GESTATION OF 11/28/2017 FENECH DORED Ot N89.8 OTHER SPECIFIED NONINFLAMMATORY DISORDER 11/28/2017 ABHISHEKECH RED BARRIOS Ot O26.893 OT RELATED CONDITIONS, THIRD 11/28/2017 ABHISHEKECH RED BARRIOS Ot Z3A.33 33 WEEKS GESTATION OF 12/02/2017 RED ROMERO DO Ot N89.8 OTHER SPECIFIED NONINFLAMMATORY DISORDER 12/02/2017 FENANNITA DORED Ot O26.893 OT RELATED CONDITIONS, THIRD 12/02/2017 FENECH RED BARRIOS Ot Z3A.33 33 WEEKS GESTATION OF Procedures Code Description Performed By Performed On 73.09 07/18/2011 73.59 07/18/2011 47902 PSYCH IND W/MED CK 20 10/29/2012 73.09 ARTIF RUPT MEMBRANES NEC 06/30/2013 73.59 MANUAL ASSIST DELIV NEC 06/30/2013 [id number] DELIVERY OF PRODUCTS OF CONCEPTION, EXTE 06/21/2016 Results Test Result Range Complete urinalysis with reflex to culture - 06/10/16 03:10 Urine color determination YELLOW NRG Urine clarity determination SLIGHTLY CLOUDY NRG Urine pH measurement by test strip 7 5-9 Specific gravity of urine by test strip 1.010 1.016- 1.022 Urine protein assay by test strip, semi-quantitative 1+ NEGATIVE Urine glucose detection by automated test strip NEGATIVE NEGATIVE Erythrocytes detection in urine sediment by light microscopy NEGATIVE NEGATIVE Urine ketones detection by automated test strip NEGATIVE NEGATIVE Urine nitrite detection by test strip NEGATIVE NEGATIVE Urine total bilirubin detection by test strip NEGATIVE NEGATIVE Urine urobilinogen measurement by automated test strip (mass/volume) NORMAL NORMAL Urine leukocyte esterase detection by dipstick 2+ NEGATIVE Automated urine sediment erythrocyte count by microscopy (number/high power field) NONE NRG Automated urine sediment leukocyte count by microscopy (number/high power field ) RARE NRG Bacteria detection in urine sediment by light microscopy TRACE NRG Squamous epithelial cells detection in urine sediment by light microscopy 25-50 NRG Crystals detection in urine sediment by light microscopy PRESENT NRG Casts detection in urine sediment by light microscopy NONE NRG Mucus detection in urine sediment by light microscopy NEGATIVE NRG Complete urinalysis with reflex to culture NO NRG Amorphous sediment detection in urine sediment by light microscopy LARGE CARMEN URATES NRG Complete urinalysis with reflex to culture - 06/20/16 18:15 Urine color determination YELLOW NRG Urine clarity determination CLEAR NRG Urine pH measurement by test strip 7 5-9 Specific gravity of urine by test strip 1.010 1.016- 1.022 Urine protein assay by test strip, semi-quantitative 1+ NEGATIVE Urine glucose detection by automated test strip NEGATIVE NEGATIVE Erythrocytes detection in urine sediment by light microscopy NEGATIVE NEGATIVE Urine ketones detection by automated test strip NEGATIVE NEGATIVE Urine nitrite detection by test strip NEGATIVE NEGATIVE Urine total bilirubin detection by test strip NEGATIVE NEGATIVE Urine urobilinogen measurement by automated test strip (mass/volume) NORMAL NORMAL Urine leukocyte esterase detection by dipstick NEGATIVE NEGATIVE Automated urine sediment erythrocyte count by microscopy (number/high power field) NONE NRG Automated urine sediment leukocyte count by microscopy (number/high power field ) NONE NRG Bacteria detection in urine sediment by light microscopy TRACE NRG Squamous epithelial cells detection in urine sediment by light microscopy 5-10 NRG Crystals detection in urine sediment by light microscopy NONE NRG Casts detection in urine sediment by light microscopy NONE NRG Mucus detection in urine sediment by light microscopy NEGATIVE NRG Complete urinalysis with reflex to culture NO NRG Bacterial urine culture - 06/20/16 18:15 URINE CULTURE RESULTS <10,000/ML NRG Complete blood count (CBC) with automated white blood cell (WBC) differential - 06/20/16 20:00 Blood leukocytes automated count (number/volume) 13.4 10*3/uL 4.3-11.0 Blood erythrocytes automated count (number/volume) 3.98 10*6/uL 4.35-5.85 Venous blood hemoglobin measurement (mass/volume) 11.2 g/dL 11.5-16.0 Blood hematocrit (volume fraction) 33 % 35-52 Automated erythrocyte mean corpuscular volume 84 [foz_us] 80-99 Automated erythrocyte mean corpuscular hemoglobin (mass per erythrocyte) 28 pg 25-34 Automated erythrocyte mean corpuscular hemoglobin concentration measurement ( mass/volume) 34 g/dL 32-36 Automated erythrocyte distribution width ratio 13.8 % 10.0-14.5 Automated blood platelet count (count/volume) 257 10*3/uL 130-400 Automated blood platelet mean volume measurement 10.9 [foz_us] 7.4-10.4 Automated blood neutrophils/100 leukocytes 75 % 42-75 Automated blood lymphocytes/100 leukocytes 18 % 12-44 Blood monocytes/100 leukocytes 6 % 0-12 Automated blood eosinophils/100 leukocytes 1 % 0-10 Automated blood basophils/100 leukocytes 0 % 0-10 Blood neutrophils automated count (number/volume) 10.0 10*3 1.8-7.8 Blood lymphocytes automated count (number/volume) 2.4 10*3 1.0-4.0 Blood monocytes automated count (number/volume) 0.8 10*3 0.0-1.0 Automated eosinophil count 0.1 10*3/uL 0.0-0.3 Automated blood basophil count (count/volume) 0.0 10*3/uL 0.0-0.1 Blood type T Indirect antibody screen panel - 06/20/16 20:00 ABO+Rh group AP NRG Transfusion band number [id number] Blood group antibody screen NEGATIVE NR Complete blood count (CBC) with automated white blood cell (WBC) differential - 06/22/16 06:13 Blood leukocytes automated count (number/volume) 15.5 10*3/uL 4.3-11.0 Blood erythrocytes automated count (number/volume) 3.81 10*6/uL 4.35-5.85 Venous blood hemoglobin measurement (mass/volume) 10.6 g/dL 11.5-16.0 Blood hematocrit (volume fraction) 32 % 35-52 Automated erythrocyte mean corpuscular volume 84 [foz_us] 80-99 Automated erythrocyte mean corpuscular hemoglobin (mass per erythrocyte) 28 pg 25-34 Automated erythrocyte mean corpuscular hemoglobin concentration measurement ( mass/volume) 33 g/dL 32-36 Automated erythrocyte distribution width ratio 13.8 % 10.0-14.5 Automated blood platelet count (count/volume) 227 10*3/uL 130-400 Automated blood platelet mean volume measurement 10.6 [foz_us] 7.4-10.4 Automated blood neutrophils/100 leukocytes 75 % 42-75 Automated blood lymphocytes/100 leukocytes 17 % 12-44 Blood monocytes/100 leukocytes 7 % 0-12 Automated blood eosinophils/100 leukocytes 1 % 0-10 Automated blood basophils/100 leukocytes 0 % 0-10 Blood neutrophils automated count (number/volume) 11.6 10*3 1.8-7.8 Blood lymphocytes automated count (number/volume) 2.6 10*3 1.0-4.0 Blood monocytes automated count (number/volume) 1.0 10*3 0.0-1.0 Automated eosinophil count 0.2 10*3/uL 0.0-0.3 Automated blood basophil count (count/volume) 0.0 10*3/uL 0.0-0.1 Complete blood count (CBC) with automated white blood cell (WBC) differential - 04/11/17 08:27 Blood leukocytes automated count (number/volume) 7.4 10*3/uL 4.3-11.0 Blood erythrocytes automated count (number/volume) 5.06 10*6/uL 4.35-5.85 Venous blood hemoglobin measurement (mass/volume) 14.6 g/dL 11.5-16.0 Blood hematocrit (volume fraction) 44 % 35-52 Automated erythrocyte mean corpuscular volume 86 [foz_us] 80-99 Automated erythrocyte mean corpuscular hemoglobin (mass per erythrocyte) 29 pg 25-34 Automated erythrocyte mean corpuscular hemoglobin concentration measurement ( mass/volume) 34 g/dL 32-36 Automated erythrocyte distribution width ratio 14.7 % 10.0-14.5 Automated blood platelet count (count/volume) 193 10*3/uL 130-400 Automated blood platelet mean volume measurement 10.6 [foz_us] 7.4-10.4 Automated blood neutrophils/100 leukocytes 73 % 42-75 Automated blood lymphocytes/100 leukocytes 19 % 12-44 Blood monocytes/100 leukocytes 6 % 0-12 Automated blood eosinophils/100 leukocytes 1 % 0-10 Automated blood basophils/100 leukocytes 0 % 0-10 Blood neutrophils automated count (number/volume) 5.4 10*3 1.8-7.8 Blood lymphocytes automated count (number/volume) 1.4 10*3 1.0-4.0 Blood monocytes automated count (number/volume) 0.5 10*3 0.0-1.0 Automated eosinophil count 0.1 10*3/uL 0.0-0.3 Automated blood basophil count (count/volume) 0.0 10*3/uL 0.0-0.1 Complete urinalysis with reflex to culture - 04/11/17 08:30 Urine color determination YELLOW NRG Urine clarity determination CLEAR NRG Urine pH measurement by test strip 6 5-9 Specific gravity of urine by test strip 1.025 1.016- 1.022 Urine protein assay by test strip, semi-quantitative 3+ NEGATIVE Urine glucose detection by automated test strip NEGATIVE NEGATIVE Erythrocytes detection in urine sediment by light microscopy 1+ NEGATIVE Urine ketones detection by automated test strip NEGATIVE NEGATIVE Urine nitrite detection by test strip NEGATIVE NEGATIVE Urine total bilirubin detection by test strip NEGATIVE NEGATIVE Urine urobilinogen measurement by automated test strip (mass/volume) NORMAL NORMAL Urine leukocyte esterase detection by dipstick 1+ NEGATIVE Automated urine sediment erythrocyte count by microscopy (number/high power field) RARE NRG Automated urine sediment leukocyte count by microscopy (number/high power field ) [HPF] NRG Bacteria detection in urine sediment by light microscopy TRACE NRG Squamous epithelial cells detection in urine sediment by light microscopy 2-5 NRG Crystals detection in urine sediment by light microscopy NONE NRG Casts detection in urine sediment by light microscopy NONE NRG Mucus detection in urine sediment by light microscopy SMALL NRG Complete urinalysis with reflex to culture NO NRG Urine beta human chorionic gonadotropin (hCG) measurement - 04/11/17 08:36 Urine beta human chorionic gonadotropin (hCG) measurement NEGATIVE NEGATIVE Complete urinalysis with reflex to culture - 08/08/17 19:20 Urine color determination YELLOW NRG Urine clarity determination CLEAR NRG Urine pH measurement by test strip 7 5-9 Specific gravity of urine by test strip 1.005 1.016- 1.022 Urine protein assay by test strip, semi-quantitative 2+ NEGATIVE Urine glucose detection by automated test strip NEGATIVE NEGATIVE Erythrocytes detection in urine sediment by light microscopy NEGATIVE NEGATIVE Urine ketones detection by automated test strip NEGATIVE NEGATIVE Urine nitrite detection by test strip NEGATIVE NEGATIVE Urine total bilirubin detection by test strip NEGATIVE NEGATIVE Urine urobilinogen measurement by automated test strip (mass/volume) NORMAL NORMAL Urine leukocyte esterase detection by dipstick NEGATIVE NEGATIVE Automated urine sediment erythrocyte count by microscopy (number/high power field) NONE NRG Automated urine sediment leukocyte count by microscopy (number/high power field ) [HPF] NRG Bacteria detection in urine sediment by light microscopy FEW NRG Squamous epithelial cells detection in urine sediment by light microscopy 10-25 NRG Crystals detection in urine sediment by light microscopy NONE NRG Casts detection in urine sediment by light microscopy NONE NRG Mucus detection in urine sediment by light microscopy NEGATIVE NRG Complete urinalysis with reflex to culture NO NRG Complete blood count (CBC) with automated white blood cell (WBC) differential - 08/08/17 19:40 Blood leukocytes automated count (number/volume) 9.5 10*3/uL 4.3-11.0 Blood erythrocytes automated count (number/volume) 4.15 10*6/uL 4.35-5.85 Venous blood hemoglobin measurement (mass/volume) 12.3 g/dL 11.5-16.0 Blood hematocrit (volume fraction) 36 % 35-52 Automated erythrocyte mean corpuscular volume 86 [foz_us] 80-99 Automated erythrocyte mean corpuscular hemoglobin (mass per erythrocyte) 30 pg 25-34 Automated erythrocyte mean corpuscular hemoglobin concentration measurement ( mass/volume) 35 g/dL 32-36 Automated erythrocyte distribution width ratio 13.3 % 10.0-14.5 Automated blood platelet count (count/volume) 199 10*3/uL 130-400 Automated blood platelet mean volume measurement 10.1 [foz_us] 7.4-10.4 Automated blood neutrophils/100 leukocytes 70 % 42-75 Automated blood lymphocytes/100 leukocytes 24 % 12-44 Blood monocytes/100 leukocytes 5 % 0-12 Automated blood eosinophils/100 leukocytes 1 % 0-10 Automated blood basophils/100 leukocytes 0 % 0-10 Blood neutrophils automated count (number/volume) 6.6 10*3 1.8-7.8 Blood lymphocytes automated count (number/volume) 2.3 10*3 1.0-4.0 Blood monocytes automated count (number/volume) 0.5 10*3 0.0-1.0 Automated eosinophil count 0.1 10*3/uL 0.0-0.3 Automated blood basophil count (count/volume) 0.0 10*3/uL 0.0-0.1 Comprehensive metabolic panel - 08/08/17 19:40 Serum or plasma sodium measurement (moles/volume) 137 mmol/L 135-145 Serum or plasma potassium measurement (moles/volume) 3.1 mmol/L 3.6-5.0 Serum or plasma chloride measurement (moles/volume) 106 mmol/L 98-107 Carbon dioxide 20 mmol/L 21-32 Serum or plasma anion gap determination (moles/volume) 11 mmol/L 5-14 Serum or plasma urea nitrogen measurement (mass/volume) 8 mg/dL 7-18 Serum or plasma creatinine measurement (mass/volume) 0.57 mg/dL 0.60-1.30 Serum or plasma urea nitrogen/creatinine mass ratio 14 NRG Serum or plasma creatinine measurement with calculation of estimated glomerular filtration rate > NRG Serum or plasma glucose measurement (mass/volume) 89 mg/dL 70-105 Serum or plasma calcium measurement (mass/volume) 8.8 mg/dL 8.5-10.1 Serum or plasma total bilirubin measurement (mass/volume) 0.2 mg/dL 0.1-1.0 Serum or plasma alkaline phosphatase measurement (enzymatic activity/volume) 42 U/L 40-136 Serum or plasma aspartate aminotransferase measurement (enzymatic activity/ volume) 7 U/L 5-34 Serum or plasma alanine aminotransferase measurement (enzymatic activity/volume ) < U/L 0-55 Serum or plasma protein measurement (mass/volume) 6.6 g/dL 6.4-8.2 Serum or plasma albumin measurement (mass/volume) 3.8 g/dL 3.2-4.5 Complete urinalysis with reflex to culture - 11/28/17 19:00 Urine color determination YELLOW NRG Urine clarity determination CLEAR NRG Urine pH measurement by test strip 7 5-9 Specific gravity of urine by test strip 1.010 1.016- 1.022 Urine protein assay by test strip, semi-quantitative 2+ NEGATIVE Urine glucose detection by automated test strip NEGATIVE NEGATIVE Erythrocytes detection in urine sediment by light microscopy NEGATIVE NEGATIVE Urine ketones detection by automated test strip NEGATIVE NEGATIVE Urine nitrite detection by test strip NEGATIVE NEGATIVE Urine total bilirubin detection by test strip NEGATIVE NEGATIVE Urine urobilinogen measurement by automated test strip (mass/volume) NORMAL NORMAL Urine leukocyte esterase detection by dipstick 3+ NEGATIVE Automated urine sediment erythrocyte count by microscopy (number/high power field) NONE NRG Automated urine sediment leukocyte count by microscopy (number/high power field ) [HPF] NRG Bacteria detection in urine sediment by light microscopy LARGE NRG Squamous epithelial cells detection in urine sediment by light microscopy 10-25 NRG Crystals detection in urine sediment by light microscopy NONE NRG Casts detection in urine sediment by light microscopy NONE NRG Mucus detection in urine sediment by light microscopy NEGATIVE NRG Complete urinalysis with reflex to culture YES NRG Bacterial urine culture - 11/28/17 19:00 URINE CULTURE RESULTS <10,000/ML NRG Complete urinalysis with reflex to culture - 11/28/17 19:45 Urine color determination YELLOW NRG Urine clarity determination CLEAR NRG Urine pH measurement by test strip 7 5-9 Specific gravity of urine by test strip 1.010 1.016- 1.022 Urine protein assay by test strip, semi-quantitative 2+ NEGATIVE Urine glucose detection by automated test strip NEGATIVE NEGATIVE Erythrocytes detection in urine sediment by light microscopy NEGATIVE NEGATIVE Urine ketones detection by automated test strip NEGATIVE NEGATIVE Urine nitrite detection by test strip NEGATIVE NEGATIVE Urine total bilirubin detection by test strip NEGATIVE NEGATIVE Urine urobilinogen measurement by automated test strip (mass/volume) NORMAL NORMAL Urine leukocyte esterase detection by dipstick 1+ NEGATIVE Automated urine sediment erythrocyte count by microscopy (number/high power field) NONE NRG Automated urine sediment leukocyte count by microscopy (number/high power field ) [HPF] NRG Bacteria detection in urine sediment by light microscopy NONE NRG Squamous epithelial cells detection in urine sediment by light microscopy - NRG Crystals detection in urine sediment by light microscopy NONE NRG Casts detection in urine sediment by light microscopy NONE NRG Mucus detection in urine sediment by light microscopy NEGATIVE NRG Complete urinalysis with reflex to culture NO NRG Microscopic examination by wet preparation - 11/28/17 20:20 WET PREP RESULTS Zakia CANNON NRG Encounters ACCT No. Visit Date/Time Discharge Status Pt. Type Provider Facility Loc./Unit Complaint [id number] 10/20/2012 14:55:00 10/20/2012 23:59:59 CLS Outpatient PHILLIP RAI CHARLEEN MORALES [id number] 11/28/2017 18:48:00 11/28/2017 21:14:00 DIS Outpatient RED ROMERO DO S [facility] WSo CONTRACTIONS,ABD PRESSURE [id number] 10/24/2017 11:58:00 10/24/2017 23:59:59 CLS Outpatient GLEN VOGEL DO [facility] RAD Z36.2 EVALUATE ANATOMY [id number] 08/23/2017 12:38:00 08/23/2017 23:59:59 CLS Outpatient GLEN VOGEL DO [facility] RAD SURVEY Z34.92 [id number] 08/08/2017 19:04:00 08/08/2017 20:31:00 DIS Emergency PRAFUL RAY APRN [facility] ER LOWER BACK PAIN,17 WKS PREG [id number] 06/18/2017 08:32:00 06/18/2017 09:08:00 DIS Emergency CINTHIA BRIGGS, JEREMIAH Fine [facility] ER N/V/COUGH,ACHES [id number] 04/11/2017 07:54:00 04/11/2017 09:49:00 DIS Emergency JOHN BRIGGS, TEE Honeycutt [facility] ER ABD CRAMPING/BLOOD CLOTS [id number] 06/20/2016 17:09:00 06/23/2016 15:10:00 DIS Inpatient GLEN VOGEL DO [facility] LDRP INDUCTION [id number] 06/10/2016 02:56:00 06/10/2016 09:35:00 DIS Outpatient [facility] LOWER [facility] PAIN [id number] 06/06/2016 16:07:00 06/06/2016 18:00:00 DIS Outpatient GL[facility] VOGEL DO [facility] POSSIBLE RUPTURE OF MEMBRANES [id number] 04/07/2016 12:08:00 04/07/2016 14:59:00 DIS Outpatient SUNITHA BRIGGS, KENNEDY Lee [facility] CONTRACTIONS [id number] 06/30/2013 05:35:00 07/02/2013 13:10:00 DIS Inpatient GLEN VOGEL DO [facility] CONTRACTIONS/34 WKS/LABOR [id number] 06/15/2013 02:25:00 06/17/2013 09:05:00 DIS Inpatient GLEN VOGEL DO [facility] WS VAG BLEEDING [id number] 05/27/2013 20:10:00 05/29/2013 10:44:00 DIS Inpatient GLEN VOGEL DO [facility] BACK PAIN/UTI [id number] 04/05/2013 11:05:00 04/06/2013 10:45:00 DIS Inpatient GLEN VOGEL DO [facility] LOWER BACK PAIN [id number] 03/22/2013 21:52:00 03/22/2013 23:33:00 DIS Emergency STEPHANIE MORENO MD [facility] ER FALL;19 WKS;CRAMPING [id number] 04/07/2016 12:08:00 Document Registration [id number] 01/31/2013 18:51:00 Document Registration [id number] 01/23/2013 13:46:00 Document Registration [id number] 12/22/2012 17:59:00 Document Registration [id number] 10/10/2012 15:55:00 Document Registration [id number] 05/23/2012 11:05:00 Document Registration [id number] 04/17/2012 16:57:00 Document Registration [id number] 04/07/2012 22:00:00 Document Registration [id number] 03/28/2012 22:31:00 Document Registration [id number] 03/12/2012 18:44:00 Document Registration [id number] 03/06/2012 21:38:00 Document Registration [id number] 02/17/2012 20:36:00 Document Registration [id number] 02/17/2012 18:28:00 Document Registration [id number] 12/04/2011 19:52:00 Document Registration [id number] 07/17/2011 20:39:00 Document Registration [id number] 06/03/2011 20:45:00 Document Registration [id number] 05/23/2011 16:29:00 Document Registration [id number] 05/14/2011 13:46:00 Document Registration [id number] 11/21/2010 13:24:00 Document Registration
[2018-01-06] MEDS ORDERED: MINERAL OIL CONCENTRATE 99.9% 15 ML UDC TOP PRN (10:45)
[2018-01-06] MEDS ORDERED: LACTATED RINGERS 1,000 ML IV ONE ×2 (10:49→13:58)
[2018-01-06] MEDS ORDERED: OXYTOCIN/NORMAL SALINE 500 ML IV ONE (10:49)
[2018-01-06] MEDS ORDERED: SUFENTA 0.6MCG/ML BUPIVA 0.125 100 ML ONE (10:49)
[2018-01-06 10:50] LABS: BASOPHILS % (AUTO) 0 % (0-10); EOSINOPHILS # (AUTO) 0.1 10^3/uL (0.0-0.3); EOSINOPHILS % (AUTO) 0 % (0-10); HEMATOCRIT 37 % (35-52); HEMOGLOBIN 12.6 G/DL (11.5-16.0); LYMPHOCYTES % (AUTO) 15 % (12-44); MEAN CORPUSCULAR HEMOGLOBIN 29 PG (25-34); MEAN CORPUSCULAR HGB CONC 34 G/DL (32-36); MEAN CORPUSCULAR VOLUME 85 FL (80-99); MEAN PLATELET VOLUME 11.3 FL (7.4-10.4); MONOCYTES % (AUTO) 5 % (0-12); NEUTROPHILS # (AUTO) 15.2 X 10^3 (1.8-7.8); NEUTROPHILS % (AUTO) 79 % (42-75); PLATELET COUNT 308 10^3/uL (130-400); RED BLOOD COUNT 4.36 10^6/uL (4.35-5.85); WHITE BLOOD COUNT 19.2 10^3/uL (4.3-11.0)
[2018-01-06 10:51] LABS: BILIRUBIN,URINE NEGATIVE (NEGATIVE); CLARITY,URINE SLIGHTLY CLOUDY; COLOR,URINE YELLOW; GLUCOSE, URINE (UA) NEGATIVE (NEGATIVE); KETONES,URINE NEGATIVE (NEGATIVE); LEUKOCYTE ESTERASE ,URINE 1+ (NEGATIVE); NITRITE,URINE NEGATIVE (NEGATIVE); PH,URINE 6.5 (5-9); PROTEIN,URINE 3+ (NEGATIVE); UROBILINOGEN,URINE 1 MG/DL (NORMAL)
[2018-01-06] MEDS: D5 LR IV SOLUTION 1,000 ML IV SCH (11:00)
[2018-01-06 11:01] LABS: BACTERIA,URINE TRACE /HPF; SQUAMOUS EPITHELIAL CELL,UR 25-50 /HPF; WBC,URINE 0-2 /HPF
[2018-01-06 11:11] LABS: BAND NEUTROPHILS 0 %; BASOPHILS % (MANUAL) 0 %; EOSINOPHILS % (MANUAL) 0 %; LYMPHOCYTES % (MANUAL) 12 %; MONOCYTES % (MANUAL) 6 %; NEUTROPHILS % (MANUAL) 82 %; RBC MORPH NORMAL
[2018-01-06] MEDS ORDERED: fentaNYL INJECTION 100 MCG/2 ML AMP ONE (11:29)
[2018-01-06] MEDS ORDERED: BUPIVACAINE 0.25% 30 ML (SENSORCAINE) VIAL ONE (11:29)
[2018-01-06] MEDS ORDERED: EPIDURAL (SUFENTA 0.6MCG/ML BUPIVA 0.125%) 100 ML BAG EPI SCH (14:00)
[2018-01-06] MEDS ORDERED: ONDANSETRON 4 MG/2 ML (SDV) Z0FRAN IV PRN (14:00)
[2018-01-06] MEDS ORDERED: diphenhydrAMINE 50 MG/ML INJ (BENADRYL) IV PRN (14:00)
[2018-01-06] MEDS ORDERED: CATHETER FLUSH 10 ML SYR IV PRN (14:00)
[2018-01-06] MEDS ORDERED: NALOXONE 0.4 MG/ML 1 ML (NARCAN) VIAL IV PRN (14:00)
--- NOTE | 2018-01-06 16:31 | OB Labor & Delivery Record ---
Vag Delivery Note Vag Delivery Note Date of Delivery: 01/06/18 Preoperative Diagnosis: Anette Fatima is a 27 /Para 05/[birth year] , Gestational Age 39 2/7 weeks for induction due to proteinuria (severe, non gestational), advanced dilation, hypothyroidism Postoperative Diagnosis: Same Surgeon: GLEN VOGEL Anesthesia: epidural Delivery Type: vaginal Findings: Viablefemale , apgars [], weight [] Lacerations: none Intact placenta with 3 vessel cord. No nuchal cord, body cord or shoulder dystocia Estimated Blood Loss: 50 ml Complications: None Condition: Stable Description of Procedure: The patient is a []who presented []. She was admitted and informed consent was obtained. Her labor course was remarkable for AROM and pitocin aubmentation. She progressed to complete dilatation and began to push. She was then set up for delivery. The infant's head was delivered atraumatically in the JOSE position. The shoulders and remainder of the infant's body were then delivered without difficulty. Upon delivery, the head was held below the level of the perineum and the mouth and nares were bulb suctioned. The cord was doubly clamped and cut and the infant was handed off to the pediatric staff. An intact placenta with 3-vessel cord delivered via Yasmin and there was found to be minimal bleeding.~ Vigorous fundal massage was performed and the fundus was found to be firm. IV oxytocin was given. Examination of the vagina and perineum revealed no lacerations . Following the delivery, sponge, instrument and needle counts were correct. Mom and baby were both in stable condition in the labor suite. Vitals - Labs Vital Signs - I&O Vital Signs Date Time Temp Pulse Resp B/P (MAP) Pulse Ox O2 Delivery O2 Flow Rate FiO2 01/06/18 14:05 71 16 122/74 (90) Room Air 01/06/18 14:00 61 16 114/73 (87) Room Air 01/06/18 13:55 71 16 117/76 (90) Room Air 01/06/18 13:50 62 18 113/74 (87) Room Air 01/06/18 13:45 67 18 116/73 (87) Room Air 01/06/18 13:40 64 18 113/71 (85) Room Air 01/06/18 13:35 67 18 116/73 (87) Room Air 01/06/18 13:30 63 18 122/73 (89) Room Air 01/06/18 13:25 56 18 118/70 (86) 98 Room Air 01/06/18 13:20 60 20 116/68 (84) 98 Room Air 01/06/18 13:15 70 20 119/72 (88) 98 Room Air 01/06/18 13:10 69 20 120/74 (89) 98 Room Air 01/06/18 13:00 71 18 115/74 (88) 98 Room Air 01/06/18 12:55 63 18 113/70 (84) 98 Room Air 01/06/18 12:50 70 16 116/71 (86) 97 Room Air 01/06/18 12:45 67 16 112/67 (82) 97 Room Air 01/06/18 12:40 67 18 118/72 (87) 97 Room Air 01/06/18 12:35 63 18 117/70 (86) 97 Room Air 01/06/18 12:30 55 16 123/70 (87) 98 Room Air 01/06/18 12:20 74 16 117/72 (87) 97 Room Air 01/06/18 12:10 61 16 131/67 (88) 97 Room Air 01/06/18 12:05 61 18 120/78 (92) 99 Room Air 01/06/18 12:00 62 20 126/71 (89) 99 Room Air 01/06/18 11:55 71 20 117/78 (91) 98 Room Air 01/06/18 11:50 65 20 128/76 (93) 99 Room Air 01/06/18 11:30 69 20 114/69 (84) 100 Room Air 01/06/18 11:15 72 20 118/77 (91) Room Air 01/06/18 11:00 71 20 119/77 (91) Room Air 01/06/18 10:30 77 20 123/83 (96) Room Air 01/06/18 10:00 74 20 121/74 (90) Room Air 01/06/18 09:30 76 20 116/73 (87) Room Air 01/06/18 09:00 88 20 126/80 (95) Room Air 01/06/18 08:45 97.9 85 20 123/68 (86) Room Air Labs Laboratory Tests 01/06/18 09:30: White Blood Count 19.2H, Red Blood Count 4.36, Hemoglobin 12.6, Hematocrit 37, Mean Corpuscular Volume 85, Mean Corpuscular Hemoglobin 29, Mean Corpuscular Hemoglobin Concent 34, Red Cell Distribution Width 14.0, Platelet Count 308, Mean Platelet Volume 11.3H, Neutrophils (%) (Auto) 79H, Lymphocytes (%) (Auto) 15, Monocytes (%) (Auto) 5, Eosinophils (%) (Auto) 0, Basophils (%) (Auto) 0, Neutrophils # (Auto) 15.2H, Lymphocytes # (Auto) 3.0, Monocytes # (Auto) 1.0, Eosinophils # (Auto) 0.1, Basophils # (Auto) 0.0, Neutrophils % (Manual) 82, Lymphocytes % (Manual) 12, Monocytes % (Manual) 6, Eosinophils % (Manual) 0, Basophils % (Manual) 0, Band Neutrophils 0, Blood Morphology Comment NORMAL, Urine Color YELLOW, Urine Clarity SLIGHTLY CLOUDY, Urine pH 6.5, Urine Specific [place] 1.015L, Urine Protein 3+H, Urine Glucose (UA) NEGATIVE, Urine Ketones NEGATIVE, Urine Nitrite NEGATIVE, Urine Bilirubin NEGATIVE, Urine Urobilinogen 1 , Urine Leukocyte Esterase 1+H, Urine RBC (Auto) NEGATIVE, Urine RBC NONE, Urine WBC 0-2, Urine Squamous Epithelial Cells 25-50H, Urine Crystals NONE, Urine Bacteria TRACE, Urine Casts NONE, Urine Mucus SMALLH, Urine Culture Indicated NO GLEN VOGEL DO Jan 06, 2018 16:31
[2018-01-06] MEDS ORDERED: NICOTINE 21 MG (NICODERM) PATCH ONE (20:58)
[2018-01-06] MEDS ORDERED: NICOTINE 14 MG (NICODERM) PATCH TD ONE (21:07)
[2018-01-06] MEDS: CATHETER FLUSH 10 ML SYR IV SCH (21:11)
[2018-01-06] MEDS: IBUPROFEN 600 MG (MOTRIN) TAB PO SCH (21:11)
[2018-01-07] VITALS: BP 103/62
[2018-01-07] MEDS: CATHETER FLUSH 10 ML SYR IV SCH ×2 (00:59→06:54)
[2018-01-07] MEDS: D5 LR IV SOLUTION 1,000 ML IV SCH ×2 (01:00→06:55)
[2018-01-07 05:00] VITALS: BP 121/81
[2018-01-07] MEDS: IBUPROFEN 600 MG (MOTRIN) TAB PO SCH ×3 (05:06→17:47)
[2018-01-07 05:59] LABS: BASOPHILS % (AUTO) 0 % (0-10); EOSINOPHILS # (AUTO) 0.1 10^3/uL (0.0-0.3); EOSINOPHILS % (AUTO) 1 % (0-10); HEMATOCRIT 33 % (35-52); LYMPHOCYTES # (AUTO) 4.1 X 10^3 (1.0-4.0); LYMPHOCYTES % (AUTO) 23 % (12-44); MEAN CORPUSCULAR HEMOGLOBIN 29 PG (25-34); MEAN CORPUSCULAR HGB CONC 33 G/DL (32-36); MEAN CORPUSCULAR VOLUME 86 FL (80-99); MEAN PLATELET VOLUME 10.9 FL (7.4-10.4); MONOCYTES # (AUTO) 1.4 X 10^3 (0.0-1.0); MONOCYTES % (AUTO) 8 % (0-12); NEUTROPHILS # (AUTO) 12.1 X 10^3 (1.8-7.8); NEUTROPHILS % (AUTO) 68 % (42-75); PLATELET COUNT 257 10^3/uL (130-400); RED BLOOD COUNT 3.81 10^6/uL (4.35-5.85); WHITE BLOOD COUNT 17.7 10^3/uL (4.3-11.0)
[2018-01-07] MEDS ORDERED: LEVOTHYROXINE 50 MCG (LEVOTHROID) TAB PO ONE (06:45)
[2018-01-07] MEDS ORDERED: ACETAMINOPHEN 500 MG TAB (TYLENOL) PO PRN (06:45)
[2018-01-07] MEDS ORDERED: LEVOTHYROXINE 25 MCG (LEVOTHROID) TAB ONE (06:46)
--- NOTE | 2018-01-07 07:31 | Anesthesia-Regional Post-Op ---
Regional Patient Condition Mental Status: Alert, Oriented x3 Circulation: Same as Pre-Op Headache: Absent Sensation: Full Recovery Motor Block: Absent Post Op Complications Complications None Follow Up Care/Instructions Patient Instructions None needed. Anesthesia/Patient Condition Patient is doing well, no complaints, stable vital signs, no apparent adverse anesthesia problems. No complications reported per nursing. EVELYN HUGHES CRNA Jan 07, 2018 07:31
--- NOTE | 2018-01-07 07:52 | Postpartum Progress Note ---
Note Note Day # 1 s/p Subjective: Patient is without complaints. Ambulating, voiding. Tolerating a regular diet without nausea or vomiting. Normal lochia. Pain is well controlled with oral pain medications. [] feeding. [] Objective: Laboratory Tests Test 01/06/18 09:30 01/07/18 05:15 01/07/18 07:20 Range/Units White Blood Count 19.2 H 17.7 H 4.3-11.0 10^3/uL Red Blood Count 4.36 3.81 L 4.35-5.85 10^6/uL Hemoglobin 12.6 11.0 L 11.5-16.0 G/DL Hematocrit 37 33 L 35-52 % Mean Corpuscular Volume 85 86 80-99 FL Mean Corpuscular Hemoglobin 29 29 25-34 PG Mean Corpuscular Hemoglobin Concent 34 33 32-36 G/DL Red Cell Distribution Width 14.0 14.0 10.0-14.5 % Platelet Count 308 257 130-400 10^3/uL Mean Platelet Volume 11.3 H 10.9 H 7.4-10.4 FL Neutrophils (%) (Auto) 79 H 68 42-75 % Lymphocytes (%) (Auto) 15 23 12-44 % Monocytes (%) (Auto) 5 8 0-12 % Eosinophils (%) (Auto) 0 1 0-10 % Basophils (%) (Auto) 0 0 0-10 % Neutrophils # (Auto) 15.2 H 12.1 H 1.8-7.8 X 10^3 Lymphocytes # (Auto) 3.0 4.1 H 1.0-4.0 X 10^3 Monocytes # (Auto) 1.0 1.4 H 0.0-1.0 X 10^3 Eosinophils # (Auto) 0.1 0.1 0.0-0.3 10^3/uL Basophils # (Auto) 0.0 0.0 0.0-0.1 10^3/uL Neutrophils % (Manual) 82 % Lymphocytes % (Manual) 12 % Monocytes % (Manual) 6 % Eosinophils % (Manual) 0 % Basophils % (Manual) 0 % Band Neutrophils 0 % Blood Morphology Comment NORMAL Urine Color YELLOW Urine Clarity SLIGHTLY CLOUDY Urine pH 6.5 5-9 Urine Specific [place] 1.015 L 1.016-1.022 Urine Protein 3+ H NEGATIVE Urine Glucose (UA) NEGATIVE NEGATIVE Urine Ketones NEGATIVE NEGATIVE Urine Nitrite NEGATIVE NEGATIVE Urine Bilirubin NEGATIVE NEGATIVE Urine Urobilinogen 1 NORMAL MG/DL Urine Leukocyte Esterase 1+ H NEGATIVE Urine RBC (Auto) NEGATIVE NEGATIVE Urine RBC NONE /HPF Urine WBC 0-2 /HPF Urine Squamous Epithelial Cells 25-50 H /HPF Urine Crystals NONE /LPF Urine Bacteria TRACE /HPF Urine Casts NONE /LPF Urine Mucus SMALL H /LPF Urine Culture Indicated NO Vital Sign - Last 12Hours 01/06/18 01/07/18 01/07/18 20:30 00:00 05:00 Temp 97.0 96.9 97.0 Pulse 56 62 45 Resp 20 20 18 B/P (MAP) 106/69 (81) 103/62 (76) 121/81 (94) Pulse Ox 97 93 98 O2 Delivery Room Air Room Air Room Air Intake and Output 01/07/18 00:00 Intake Total 500 ml Balance 500 ml Physical Exam: General - Alert and oriented, no apparent distress Abdomen - Soft, appropriately tender to palpation, non-distended, fundus firm at umbilicus Extremities - no edema, negative Dania's bilaterally [] Assessment: [] post- day # [], status post [] vaginal delivery. Recovering well, hemodynamically stable [] Plan: Routine care. Encourage breast feeding. Encourage ambulation. Ferrous sulfate supplementation. Plan for discharge [] Vitals - Labs Vital Signs - I&O Vital Signs Date Time Temp Pulse Resp B/P (MAP) Pulse Ox O2 Delivery O2 Flow Rate FiO2 01/07/18 05:00 97.0 45 18 121/81 (94) 98 Room Air 01/07/18 00:00 96.9 62 20 103/62 (76) 93 Room Air 01/06/18 20:30 97.0 56 20 106/69 (81) 97 Room Air 01/06/18 18:50 73 20 116/71 (86) Room Air 01/06/18 18:20 61 20 124/75 (91) Room Air 01/06/18 18:00 58 20 116/70 (85) Room Air 01/06/18 17:35 52 20 115/72 (86) Room Air 01/06/18 17:20 98.1 60 20 113/67 (82) Room Air 01/06/18 17:05 98.0 57 20 113/61 (78) Room Air 01/06/18 16:49 98.0 62 20 111/58 (75) Room Air 01/06/18 16:38 98.2 66 18 115/66 (82) Room Air 01/06/18 16:20 81 18 102/64 (77) Room Air 01/06/18 16:15 69 20 113/54 (73) Room Air 01/06/18 16:10 76 20 114/62 (79) Room Air 01/06/18 16:05 74 18 103/58 (73) Room Air 01/06/18 16:00 85 18 108/60 (76) Room Air 01/06/18 15:55 65 18 107/59 (75) Room Air 01/06/18 15:50 60 18 108/58 (75) Room Air 01/06/18 15:45 84 18 106/58 (74) Room Air 01/06/18 15:40 70 18 106/56 (73) Room Air 01/06/18 15:35 65 18 107/58 (74) Room Air 01/06/18 15:30 62 18 114/57 (76) Room Air 01/06/18 15:25 59 18 107/58 (74) Room Air 01/06/18 15:20 75 18 100/59 (73) Room Air 01/06/18 15:15 60 18 109/61 (77) Room Air 01/06/18 15:00 69 18 123/73 (90) Room Air 01/06/18 14:55 57 18 114/68 (83) Room Air 01/06/18 14:50 54 18 115/70 (85) Room Air 01/06/18 14:45 57 18 111/68 (82) Room Air 01/06/18 14:30 57 18 120/70 (87) Room Air 01/06/18 14:15 52 18 118/70 (86) Room Air 01/06/18 14:05 71 16 122/74 (90) Room Air 01/06/18 14:00 61 16 114/73 (87) Room Air 01/06/18 13:55 71 16 117/76 (90) Room Air 01/06/18 13:50 62 18 113/74 (87) Room Air 01/06/18 13:45 67 18 116/73 (87) Room Air 01/06/18 13:40 64 18 113/71 (85) Room Air 01/06/18 13:35 67 18 116/73 (87) Room Air 01/06/18 13:30 63 18 122/73 (89) Room Air 01/06/18 13:25 56 18 118/70 (86) 98 Room Air 01/06/18 13:20 60 20 116/68 (84) 98 Room Air 01/06/18 13:15 70 20 119/72 (88) 98 Room Air 01/06/18 13:10 69 20 120/74 (89) 98 Room Air 01/06/18 13:00 71 18 115/74 (88) 98 Room Air 01/06/18 12:55 63 18 113/70 (84) 98 Room Air 01/06/18 12:50 70 16 116/71 (86) 97 Room Air 01/06/18 12:45 67 16 112/67 (82) 97 Room Air 01/06/18 12:40 67 18 118/72 (87) 97 Room Air 01/06/18 12:35 63 18 117/70 (86) 97 Room Air 01/06/18 12:30 55 16 123/70 (87) 98 Room Air 01/06/18 12:20 74 16 117/72 (87) 97 Room Air 01/06/18 12:10 61 16 131/67 (88) 97 Room Air 01/06/18 12:05 61 18 120/78 (92) 99 Room Air 01/06/18 12:00 62 20 126/71 (89) 99 Room Air 01/06/18 11:55 71 20 117/78 (91) 98 Room Air 01/06/18 11:50 65 20 128/76 (93) 99 Room Air 01/06/18 11:30 69 20 114/69 (84) 100 Room Air 01/06/18 11:15 72 20 118/77 (91) Room Air 01/06/18 11:00 71 20 119/77 (91) Room Air 01/06/18 10:30 77 20 123/83 (96) Room Air 01/06/18 10:00 74 20 121/74 (90) Room Air 01/06/18 09:30 76 20 116/73 (87) Room Air 01/06/18 09:00 88 20 126/80 (95) Room Air 01/06/18 08:45 97.9 85 20 123/68 (86) Room Air I & O 01/07/18 07:00 Intake Total 500 ml Balance 500 ml Labs Laboratory Tests 01/06/18 09:30: White Blood Count 19.2H, Red Blood Count 4.36, Hemoglobin 12.6, Hematocrit 37, Mean Corpuscular Volume 85, Mean Corpuscular Hemoglobin 29, Mean Corpuscular Hemoglobin Concent 34, Red Cell Distribution Width 14.0, Platelet Count 308, Mean Platelet Volume 11.3H, Neutrophils (%) (Auto) 79H, Lymphocytes (%) (Auto) 15, Monocytes (%) (Auto) 5, Eosinophils (%) (Auto) 0, Basophils (%) (Auto) 0, Neutrophils # (Auto) 15.2H, Lymphocytes # (Auto) 3.0, Monocytes # (Auto) 1.0, Eosinophils # (Auto) 0.1, Basophils # (Auto) 0.0, Neutrophils % (Manual) 82, Lymphocytes % (Manual) 12, Monocytes % (Manual) 6, Eosinophils % (Manual) 0, Basophils % (Manual) 0, Band Neutrophils 0, Blood Morphology Comment NORMAL, Urine Color YELLOW, Urine Clarity SLIGHTLY CLOUDY, Urine pH 6.5, Urine Specific [place] 1.015L, Urine Protein 3+H, Urine Glucose (UA) NEGATIVE, Urine Ketones NEGATIVE, Urine Nitrite NEGATIVE, Urine Bilirubin NEGATIVE, Urine Urobilinogen 1 , Urine Leukocyte Esterase 1+H, Urine RBC (Auto) NEGATIVE, Urine RBC NONE, Urine WBC 0-2, Urine Squamous Epithelial Cells 25-50H, Urine Crystals NONE, Urine Bacteria TRACE, Urine Casts NONE, Urine Mucus SMALLH, Urine Culture Indicated NO 01/07/18 05:15: White Blood Count 17.7H, Red Blood Count 3.81L, Hemoglobin 11.0L, Hematocrit 33L , Mean Corpuscular Volume 86, Mean Corpuscular Hemoglobin 29, Mean Corpuscular Hemoglobin Concent 33, Red Cell Distribution Width 14.0, Platelet Count 257, Mean Platelet Volume 10.9H, Neutrophils (%) (Auto) 68, Lymphocytes (%) (Auto) 23 , Monocytes (%) (Auto) 8, Eosinophils (%) (Auto) 1, Basophils (%) (Auto) 0, Neutrophils # (Auto) 12.1H, Lymphocytes # (Auto) 4.1H, Monocytes # (Auto) 1.4H, Eosinophils # (Auto) 0.1, Basophils # (Auto) 0.0 01/07/18 07:20: GLEN VOGEL DO Jan 07, 2018 07:52
[2018-01-07] MEDS ORDERED: NICOTINE 14 MG (NICODERM) PATCH TD SCH (09:00)
[2018-01-07 10:24] VITALS: BP 118/79
[2018-01-07 14:30] VITALS: BP 111/76
[2018-01-07 17:45] VITALS: BP 116/73
[2018-01-08] MEDS: IBUPROFEN 600 MG (MOTRIN) TAB PO SCH ×3 (00:03→11:50)
[2018-01-08] MEDS: DOCUSATE SODIUM 100 MG (COLACE) CAP PO SCH ×2 (00:03→08:36)
[2018-01-08 00:06] VITALS: BP 123/80
[2018-01-08 06:02] VITALS: BP 118/74
[2018-01-08] MEDS ORDERED: LEVOTHYROXINE 50 MCG (LEVOTHROID) TAB PO ONE (06:30)
[2018-01-08] MEDS ORDERED: IBUP-1773 PO (09:48)
--- NOTE | 2018-01-08 09:50 | Discharge Inst-Women's Service ---
Discharge Inst-Women's Serv Depart Medication/Instructions New, Converted or Re-Newed RX: RX on Chart Final Diagnosis proteinuria hypothyroid term induction epidural vaginal delivery Consults/Follow Up Additional Follow Up: Yes (6 weeks pp exam.) Activity Activity: Activity as Tolerated Driving Instructions: You May Drive NO SMOKING: NO SMOKING Nothing Inside Vagina: No Douching, No [place], No Tampons Diet Discharge Diet: No Restrictions Symptoms to Report to : Pain Increased, Fever Over 101 Degrees F, Vaginal Bleeding Increase, Vaginal Discharge Foul For Any Problems or Questions: Contact Your Physician GLEN VOGEL DO Jan 08, 2018 09:50
--- NOTE | 2018-01-08 09:52 | Postpartum Progress Note ---
Note Note Day # 2 s/p Subjective: Patient is without complaints. Ambulating, voiding. Tolerating a regular diet without nausea or vomiting. Normal lochia. Pain is well controlled with oral pain medications. [] feeding. [] Objective: Vital Sign - Last 12Hours 01/08/18 01/08/18 00:06 06:02 Temp 97.0 96.9 Pulse 76 61 Resp 18 18 B/P (MAP) 123/80 (94) 118/74 (89) Pulse Ox 98 96 O2 Delivery Room Air Room Air Laboratory Tests Test 01/06/18 09:30 01/07/18 05:15 01/07/18 07:20 Range/Units White Blood Count 19.2 H 17.7 H 4.3-11.0 10^3/uL Red Blood Count 4.36 3.81 L 4.35-5.85 10^6/uL Hemoglobin 12.6 11.0 L 11.5-16.0 G/DL Hematocrit 37 33 L 35-52 % Mean Corpuscular Volume 85 86 80-99 FL Mean Corpuscular Hemoglobin 29 29 25-34 PG Mean Corpuscular Hemoglobin Concent 34 33 32-36 G/DL Red Cell Distribution Width 14.0 14.0 10.0-14.5 % Platelet Count 308 257 130-400 10^3/uL Mean Platelet Volume 11.3 H 10.9 H 7.4-10.4 FL Neutrophils (%) (Auto) 79 H 68 42-75 % Lymphocytes (%) (Auto) 15 23 12-44 % Monocytes (%) (Auto) 5 8 0-12 % Eosinophils (%) (Auto) 0 1 0-10 % Basophils (%) (Auto) 0 0 0-10 % Neutrophils # (Auto) 15.2 H 12.1 H 1.8-7.8 X 10^3 Lymphocytes # (Auto) 3.0 4.1 H 1.0-4.0 X 10^3 Monocytes # (Auto) 1.0 1.4 H 0.0-1.0 X 10^3 Eosinophils # (Auto) 0.1 0.1 0.0-0.3 10^3/uL Basophils # (Auto) 0.0 0.0 0.0-0.1 10^3/uL Neutrophils % (Manual) 82 % Lymphocytes % (Manual) 12 % Monocytes % (Manual) 6 % Eosinophils % (Manual) 0 % Basophils % (Manual) 0 % Band Neutrophils 0 % Blood Morphology Comment NORMAL Urine Color YELLOW Urine Clarity SLIGHTLY CLOUDY Urine pH 6.5 5-9 Urine Specific [place] 1.015 L 1.016-1.022 Urine Protein 3+ H NEGATIVE Urine Glucose (UA) NEGATIVE NEGATIVE Urine Ketones NEGATIVE NEGATIVE Urine Nitrite NEGATIVE NEGATIVE Urine Bilirubin NEGATIVE NEGATIVE Urine Urobilinogen 1 NORMAL MG/DL Urine Leukocyte Esterase 1+ H NEGATIVE Urine RBC (Auto) NEGATIVE NEGATIVE Urine RBC NONE /HPF Urine WBC 0-2 /HPF Urine Squamous Epithelial Cells 25-50 H /HPF Urine Crystals NONE /LPF Urine Bacteria TRACE /HPF Urine Casts NONE /LPF Urine Mucus SMALL H /LPF Urine Culture Indicated NO Thyroid Stimulating Hormone (TSH) 3.66 0.35-4.94 UIU/ML Physical Exam: General - Alert and oriented, no apparent distress Abdomen - Soft, appropriately tender to palpation, non-distended, fundus firm at umbilicus Extremities - no edema, negative Dania's bilaterally [] Assessment: [] post- day # [], status post [] vaginal delivery. Recovering well, hemodynamically stable [] Plan: Routine care. Encourage breast feeding. Encourage ambulation. Ferrous sulfate supplementation. Plan for discharge [] Vitals - Labs Vital Signs - I&O Vital Signs Date Time Temp Pulse Resp B/P (MAP) Pulse Ox O2 Delivery O2 Flow Rate FiO2 01/08/18 06:02 96.9 61 18 118/74 (89) 96 Room Air 01/08/18 00:06 97.0 76 18 123/80 (94) 98 Room Air 01/07/18 17:45 97.5 69 18 116/73 (87) 98 Room Air 01/07/18 14:30 97.1 70 18 111/76 (88) 98 Room Air 01/07/18 10:24 97.4 67 18 118/79 (92) 98 Room Air GLEN VOGEL DO Jan 08, 2018 09:52
== END 2018-01-08 12:00 | disposition home or self-care (01) | DRG 775 ==
LOC: LDRP 07:51
PROVIDERS: ADMIT Obstetrics & Gynecology; ATTEND Obstetrics & Gynecology
PROC: 10E0XZZ Delivery of Products of Conception, External Approach (ICD-10-PCS; principal; 2018-01-06)
DX: O12.14 Gestational proteinuria, complicating childbirth (principal); O99.284 Endocrine, nutritional and metabolic diseases complicating childbirth; E03.9 Hypothyroidism, unspecified; Z3A.39 39 weeks gestation of pregnancy; Z37.0 Single live birth
CPT/HCPCS: 36415; 81000; 84443; 85007; 85025; 85027; 86850; 86900; 86901

== ENCOUNTER 2018-06-25 18:55 | Emergency (ER) | payer MEDICAID ==
[~2018-06-25] VITALS: Ht 175.3 cm; Wt 81.6 kg
--- OUTSIDE RECORDS SUMMARY | 2018-06-25 19:00 | XMS REPORT ---
Author Author AMOS HENLEY [facility] Address [address] [place] [address] Care Team Providers Care Viscosity Inspector Name Role Phone AMOS HENLEY Unavailable PROBLEMS Type Condition ICD9-CM Code PIX34-TS Code Onset Dates Condition Status SNOMED Code Problem Postablative hypothyroidism E89.0 Active 499526604 Problem Hypothyroidism, unspecified type E03.9 Active 07651573 Problem Encounter for long-term (current) use of other medications V58.69 Active 852243978 Problem Major depressive disorder, recurrent episode, moderate 296.32 Active 56427585 Problem Combinations of drug dependence excluding opioid type drug, 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 258779824 ALLERGIES Substance Reaction Event Type Date Status Pertussis Injection Unknown Non Drug Allergy Sep, Active ENCOUNTERS Encounter Location Date Diagnosis [facility] [id number] [place] [address] [id number] Nov, [facility] [address] [id number] Nov, Encounter for dental examination Z01.20 [facility] [id number] [place] [address] Sep, Encounter for immunization Z23 [facility] [address] [address] Apr, Postablative hypothyroidism E89.0 [facility] [address] [address] Apr, [facility] [address] [id number] Apr, Dental examination Z01.20 [facility] [id number] [place] [address] March, Hypothyroidism, unspecified type E03.9 [facility] [address] [facility] [id number] [place] [address] March, Hypothyroidism, unspecified type E03.9 [facility] [address] [facility] [id number] [place] [address] 14 Feb, 2015 [facility] [address] [place] [address] Feb, [facility] [address] [facility] [id number] [place] [address] Dec, [facility] [address] [facility] [id number] [place] [address] Nov, [facility] [address] [place] [address] Oct, [facility] [id number] [place] [address] Oct, [facility] [id number] [place] [address] Feb, [facility] [id number] [place] [address] 134[address] Feb, [facility] [address] [place] [address] Feb, [facility] [address], [place] [address] Dec, [facility] [address] [facility] [id number] [address] Nov, [facility] [address] [id number] [place] [address]- 14[address] Nov, [facility] [address] [facility] [id number] [place] [address]- 7754 Nov, [facility] [address] [id number] [place] [address]- 97[address] Oct, [facility] [address] [facility] [id number] [place] [address]- 25[address] Oct, [facility] [address] [facility] [id number] [place] [address]- 2546 Sep, IMMUNIZATIONS Vaccine Route Administration Date Status FLUARIX QUAD (3 AND UP) 2016 IM Intramuscular Sep 16, 2017 Administered SOCIAL HISTORY Never Assessed REASON FOR VISIT flu shot per pts request. [email or web address] PLAN OF CARE VITAL SIGNS MEDICATIONS Medication Instructions Dosage Frequency Start Date End Date Duration Status Levothyroxine Sodium 50 mcg Orally once daily in the am 1 tablet on an empty stomach in the morning Apr, 30 days Active RESULTS No Results PROCEDURES Procedure Date Ordered Result Body Site FLUARIX QUAD (3 AND UP) 2017 Sep 16, 2017 SINGLE IMMUNIZATION ADMIN Sep 16, 2017 INSTRUCTIONS MEDICATIONS ADMINISTERED No Known Medications MEDICAL (GENERAL) HISTORY Type Description Date Medical History thyroid Medical History Due January 11, 2018 Surgical History DNC 2008 Surgical History Tonsils Removed 2005 Surgical History Thyroid Ablation Surgical History Thyroid Ablation Hospitalization History Child Hospitalization History kidney stones
--- OUTSIDE RECORDS SUMMARY | 2018-06-25 19:00 | XMS REPORT ---
Author Author NAYA CAL[facility] Address [address] [place] [address] Care Team Providers Care Traffic And Transport Planner Name Role Phone GALILEA NAYA Unavailable PROBLEMS Type Condition ICD9-CM Code BDJ94-IN Code Onset Dates Condition Status SNOMED Code Problem Postablative hypothyroidism E89.0 Active 975861172 Problem Hypothyroidism, unspecified type E03.9 Active 02594415 Problem Encounter for long-term (current) use of other medications V58.69 Active 976101933 Problem Major depressive disorder, recurrent episode, moderate 296.32 Active 88628392 Problem Combinations of drug dependence excluding opioid type drug, 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 110075573 ALLERGIES Substance Reaction Event Type Date Status Pertussis Injection Unknown Non Drug Allergy Apr, Active ENCOUNTERS Encounter Location Date Diagnosis [facility] [address] [id number] Nov, [facility] [address] [id number] Nov, Encounter for dental examination Z01.20 [facility] [id number] [place] [address] Sep, Encounter for immunization Z23 [facility] [address] [address] Apr, Postablative hypothyroidism E89.0 [facility] [address] [address] Apr, [facility] [address] [id number] Apr, Dental examination Z01.20 [facility] [address] [address] March, Hypothyroidism, unspecified type E03.9 [facility] [address] [id number] [place] [address] March, Hypothyroidism, unspecified type E03.9 [facility] [address] [id number] [place] [address]- 359[address] 14 Feb, 2015 [facility] [address] [facility] [id number] [place] [address]- 8[address] Feb, [facility] [address] [id number] [place] [address]- 0200 Dec, [facility] [address] [id number] [place] [address]- 8247 Nov, [facility] [address] [facility] [id number] [place] [address]- 67[address] Oct, [facility] [address] [facility] [id number] [place] [address]- [address] Oct, [facility] [address] [facility] [id number] [place] [address]- 3110 Feb, [facility] [address] [facility] [id number] [place] [address]- 0081 Feb, [facility] [address] [facility] [id number] [place] [address]- 2380 Feb, [facility] [address] [facility] [id number] [place] [address]- 7483 Dec, [facility] [address] [facility] [id number] [place] [address]- 5505 Nov, [facility] [address] [facility] [id number] [place] [address]- 3687 Nov, [facility] [address] [facility] [id number] [place] [address]- 2197 Nov, [facility] [address] [facility] [id number] [place] [address]- [address] Oct, [facility] [address] [facility] [id number] [place] [address]- 2546 Oct, [facility] [address] [facility] [id number] [place] [address]- 2546 Sep, IMMUNIZATIONS No Known Immunizations SOCIAL HISTORY Never Assessed REASON FOR VISIT Establish Care cedrick helms PLAN OF CARE Activity Details Follow Up 8 weeks lab and 12 weeks office visit Reason:thyroid VITAL SIGNS Height 67 in 2017-05-07 Weight 201.7 lbs 2017-05-07 Temperature 98.4 degrees Fahrenheit 2017-05-07 Heart Rate 80 bpm 2017-05-07 Respiratory Rate 10 2017-05-07 BMI 31.59 kg/m2 2017-05-07 Blood pressure systolic 114 mmHg 2017-05-07 Blood pressure diastolic 82 mmHg 2017-05-07 MEDICATIONS Medication Instructions Dosage Frequency Start Date End Date Duration Status Levothyroxine Sodium 50 mcg Orally once daily in the am 1 tablet on an empty stomach in the morning Apr, 30 days Active RESULTS No Results PROCEDURES No Known procedures INSTRUCTIONS MEDICATIONS ADMINISTERED No Known Medications MEDICAL (GENERAL) HISTORY Type Description Date Medical History thyroid Medical History Due January 11, 2018 Surgical History DNC 2008 Surgical History Tonsils Removed 2005 Surgical History Thyroid Ablation Surgical History Thyroid Ablation Hospitalization History Child Hospitalization History kidney stones
--- OUTSIDE RECORDS SUMMARY | 2018-06-25 19:00 | XMS REPORT ---
Author Author GET CRUZITO [facility] Address [address] [place] [address] Care Team Providers Care National Sales Representative Name Role Phone CRUZITO DEUTSCH Unavailable PROBLEMS Type Condition ICD9-CM Code GGQ10-UZ Code Onset Dates Condition Status SNOMED Code Problem Postablative hypothyroidism E89.0 Active 272979992 Problem Hypothyroidism, unspecified type E03.9 Active 30728400 Problem Encounter for long-term (current) use of other medications V58.69 Active 715516875 Problem Major depressive disorder, recurrent episode, moderate 296.32 Active 41744613 Problem Combinations of drug dependence excluding opioid type drug, 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 127831518 ALLERGIES No Information ENCOUNTERS Encounter Location Date Diagnosis [facility] [id number] [place] [id number] Nov, [facility] [id number] [place] [address] [id number] Nov, Encounter for dental examination Z01.20 [facility] [id number] [place] [address]871 Sep, Encounter for immunization Z23 [facility] [id number] [place] [address]- [address] Apr, Postablative hypothyroidism E89.0 [facility] [id number] [place] [address] 95[address] Apr, [facility] [id number] [place] [address] [id number] Apr, Dental examination Z01.20 [facility] [id number] [place] [address] March, Hypothyroidism, unspecified type E03.9 [facility] [address] [id number] [place] [place] [address]- [address] March, Hypothyroidism, unspecified type E03.9 [facility] [address] [facility] [id number] [place] [address]- 79[address] 14 Feb, 2015 [facility] [address] [facility] [id number] [place] [address]- 4[address] Feb, [facility] [id number] [place] [address], [place] [address]- 4579 Dec, [facility] [address] [facility] [id number] [place] [address]- 6252 Nov, [facility] [id number] [place] [place] [address]- 8065 Oct, [facility] [id number] [place] [address]- 0696 Oct, [facility] [id number] [place] [place] [address]- 1669 Feb, [facility] [id number] [place] [place] [address]- 0313 Feb, [facility] [id number] [place] [place] [address]- 7351 Feb, [facility] [id number] [place] [address]- 7457 Dec, [facility] [id number] [address] Nov, [facility] [address] [facility] [id number] [place] [address]- 1939 Nov, [facility] [id number] [place] [place] [address]- 6522 Nov, [facility] [address] [id number] [place] [address]279 Oct, [facility] [id number] [address]- 2546 Oct, [facility] [address] [facility] [id number] [place] [address]- 2546 Sep, IMMUNIZATIONS No Known Immunizations SOCIAL HISTORY Never Assessed REASON FOR VISIT appt PLAN OF CARE VITAL SIGNS MEDICATIONS Unknown Medications RESULTS No Results PROCEDURES No Known procedures INSTRUCTIONS MEDICATIONS ADMINISTERED No Known Medications MEDICAL (GENERAL) HISTORY Type Description Date Medical History thyroid Medical History Due January 11, 2018 Surgical History DNC 2008 Surgical History Tonsils Removed 2005 Surgical History Thyroid Ablation Surgical History Thyroid Ablation Hospitalization History Child Hospitalization History kidney stones
--- OUTSIDE RECORDS SUMMARY | 2018-06-25 19:00 | XMS REPORT ---
Author Author GET CRUZITO [facility] Address [address] [place] [address] Care Team Providers Care Home Teaching [employer] 8 Teacher Name Role Phone CRUZITO DEUTSCH Unavailable PROBLEMS Type Condition ICD9-CM Code MYS91-RT Code Onset Dates Condition Status SNOMED Code Problem Postablative hypothyroidism E89.0 Active 554772329 Problem Hypothyroidism, unspecified type E03.9 Active 82781970 Problem Encounter for long-term (current) use of other medications V58.69 Active 996051647 Problem Major depressive disorder, recurrent episode, moderate 296.32 Active 51048784 Problem Combinations of drug dependence excluding opioid type drug, 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 [id number] [place] [id number] Nov, [facility] [address] [id number] Nov, Encounter for dental examination Z01.20 [facility] [id number] [place] [address]145 Sep, Encounter for immunization Z23 [facility] [address] [address] Apr, Postablative hypothyroidism E89.0 [facility] [address] [address] Apr, [facility] [address] [id number] Apr, Dental examination Z01.20 [facility] [id number] [place] [address] March, Hypothyroidism, unspecified type E03.9 [facility] [address] [facility] [id number] [place] [address]- 4288 March, Hypothyroidism, unspecified type E03.9 [facility] [address] [facility] [id number] [place] [address]- 9[address] 14 Feb, 2015 [facility] [address]00565100[facility] [address]- 2444 Feb, [facility] [address] [facility] [id number] [place] [address]- 1439 Dec, [facility] [address] [facility] [id number] [place] [address]- 9515 Nov, [facility] [id number] [place] [address]- 3741 Oct, [facility] [id number] [place] [address]- 0407 Oct, [facility] [id number] [place] [address]- 9815 Feb, [facility] [id number] [place] [address]- 8280 Feb, [facility] [id number] [place] [address]- 7420 Feb, [facility] [address]65[address], [place] [address]- 3833 Dec, [facility] [address] [facility] [id number], [place] [address]- 55[address] Nov, [facility] [address] [id number] [place] [address]- 2199 Nov, [facility] [address] [facility] [id number] [place] [address]- 2768 Nov, [facility] [address] [id number] [place] [address]- 6237 Oct, [facility] [address] [facility] [id number] [place] [address]- 2546 Oct, [facility] [address] [facility] [id number] [place] [address]- 8126 Sep, IMMUNIZATIONS No Known Immunizations SOCIAL HISTORY Never Assessed REASON FOR VISIT prophy/iker PLAN OF CARE Activity Details Follow Up First AVailable Reason:IKER/SRP VITAL SIGNS Heart Rate 76 bpm 2017-12-06 Blood pressure systolic 119 mmHg 2017-12-06 Blood pressure diastolic 72 mmHg 2017-12-06 MEDICATIONS Medication Instructions Dosage Frequency Start Date End Date Duration Status Levothyroxine Sodium 50 mcg Orally once daily in the am 1 tablet on an empty stomach in the morning Apr, 30 days Active Magnesium Active Pre-Rosa Active RESULTS No Results PROCEDURES Procedure Date Ordered Result Body Site INTRAORL-PERIAPICAL 1 FILM 08378 Dec 06, 2017 INTRAORL-PERIAPICAL EA ADD FILM Dec 06, 2017 BITEWINGS - THREE FILMS Dec 06, 2017 INTRAORL-PERIAPICAL EA ADD FILM Dec 06, 2017 INSTRUCTIONS MEDICATIONS ADMINISTERED No Known Medications MEDICAL (GENERAL) HISTORY Type Description Date Medical History thyroid Medical History Due January 11, 2018 Surgical History DNC 2008 Surgical History Tonsils Removed 2005 Surgical History Thyroid Ablation Surgical History Thyroid Ablation Hospitalization History Child Hospitalization History kidney stones
--- OUTSIDE RECORDS SUMMARY | 2018-06-25 19:00 | XMS REPORT ---
Author Author AWA GHOTRA [facility] Address Unknown Care Team Providers Care Change Number Operator Name Role Phone AWA GHOTRA Unavailable PROBLEMS Type Condition ICD9-CM Code FAW74-RU Code Onset Dates Condition Status SNOMED Code Problem Postablative hypothyroidism E89.0 Active 302381913 Problem Hypothyroidism, unspecified type E03.9 Active 40024992 Problem Encounter for long-term (current) use of other medications V58.69 Active 952223415 Problem Major depressive disorder, recurrent episode, moderate 296.32 Active 42584520 Problem Combinations of drug dependence excluding opioid type drug, 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 100279376 ALLERGIES Substance Reaction Event Type Date Status Pertussis Injection Unknown Non Drug Allergy Apr, Active ENCOUNTERS Encounter Location Date Diagnosis [facility] [address] [id number] Nov, [facility] [address] [id number] Nov, Encounter for dental examination Z01.20 [facility] [id number] [place] [address] -[address]88 Sep, Encounter for immunization Z23 [facility] [address] [address] Apr, Postablative hypothyroidism E89.0 [facility] [id number] [place] [address]- 1099 Apr, [facility] [address] [id number] Apr, Dental examination Z01.20 [facility] [id number] [place] [address]- 9160 March, Hypothyroidism, unspecified type E03.9 [facility] [address] [facility] [id number] [place] [address]- 5329 March, Hypothyroidism, unspecified type E03.9 [facility] [address] [id number] [place] [address]- 05[address] 14 Feb, 2015 [facility] [address] [id number] [place] [address]- 5743 Feb, [facility] [address] [id number] [place] [address]- 5491 Dec, [facility] [address] [id number] [place] [address]- 8181 Nov, [facility] [address] [facility] [id number] [place] [address]- 2287 Oct, [facility] [address] [facility] [id number] [place] [address]- 3226 Oct, [facility] [address] [facility] [id number] [place] [address]- 8052 Feb, [facility] [address] [facility] [id number] [place] [address]- 1762 Feb, [facility] [address] [id number] [place] [address]- 8[address] Feb, [facility] [address] [facility] [id number] [place] [address]- 4022 Dec, [facility] [address] [facility] [id number] [address]- 1769 Nov, [facility] [address] [id number] [place] [address]- 3320 Nov, [facility] [address] [facility] [id number] [place] [address]- 6573 Nov, [facility] [address] [facility] [id number] [place] [address]- 3928 Oct, [facility] [address] [id number] [place] [address]- 2546 Oct, [facility] [address] [facility] [id number] [place] [address]- 2546 Sep, IMMUNIZATIONS No Known Immunizations SOCIAL HISTORY Never Assessed REASON FOR VISIT [place] PLAN OF CARE Activity Details Follow Up prn Reason:Refer VITAL SIGNS Blood pressure systolic 111 mmHg 2017-04-23 Blood pressure diastolic 74 mmHg 2017-04-23 MEDICATIONS Unknown Medications RESULTS No Results PROCEDURES Procedure Date Ordered Result Body Site LTD ORAL EVALUATION - PROBLEM FOCUS April 23, 2017 INTRAORL-PERIAPICAL 1 FILM 47345 April 23, 2017 PANORAMIC FILM SEE ALSO CODE 49019 April 23, 2017 BITEWING - SINGLE FILM April 23, 2017 INSTRUCTIONS MEDICATIONS ADMINISTERED No Known Medications MEDICAL (GENERAL) HISTORY Type Description Date Medical History thyroid Medical History Due January 11, 2018 Surgical History DNC 2008 Surgical History Tonsils Removed 2005 Surgical History Thyroid Ablation Surgical History Thyroid Ablation Hospitalization History Child Hospitalization History kidney stones
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
[2018-06-25 19:36] LABS: BASOPHILS % (AUTO) 0 % (0-10); EOSINOPHILS # (AUTO) 0.1 10^3/uL (0.0-0.3); EOSINOPHILS % (AUTO) 2 % (0-10); HEMATOCRIT 41 % (35-52); HEMOGLOBIN 13.8 G/DL (11.5-16.0); LYMPHOCYTES % (AUTO) 39 % (12-44); MEAN CORPUSCULAR HEMOGLOBIN 29 PG (25-34); MEAN CORPUSCULAR HGB CONC 34 G/DL (32-36); MEAN CORPUSCULAR VOLUME 85 FL (80-99); MEAN PLATELET VOLUME 10.2 FL (7.4-10.4); MONOCYTES # (AUTO) 0.4 X 10^3 (0.0-1.0); MONOCYTES % (AUTO) 5 % (0-12); NEUTROPHILS # (AUTO) 4.2 X 10^3 (1.8-7.8); NEUTROPHILS % (AUTO) 54 % (42-75); PLATELET COUNT 271 10^3/uL (130-400); RED BLOOD COUNT 4.77 10^6/uL (4.35-5.85); RED CELL DISTRIBUTION WIDTH 14.4 % (10.0-14.5); WHITE BLOOD COUNT 7.7 10^3/uL (4.3-11.0)
--- NOTE | 2018-06-25 19:46 | ED Integumentary General ---
General Chief Complaint: Bite-Animal/Human/Insect Stated Complaint: SPIDER BITE Nursing Triage Note: Patient advises she was putting on a pair of jeans yesterday when she felt something bite her. Shortly after she began developing redness as well as bruising to the left thigh that has become progressively worse. Source: patient Exam Limitations: no limitations History of Present Illness Date Seen by Provider: Jun 25, 2018 Time Seen by Provider: 19:20 Initial Comments Patient is a 27-year-old female who presents to the emergency room with complaints of a spider bite to her left inner thigh. She reports that she was putting her jeans on yesterday when she felt something bite her. She states that shortly after she started to have pain, redness, bruising to the left inner thigh. She has an area of the 8cm by 8 cm left inner thigh that is now all ecchymosis. This area is very tender and painful. Timing/Duration: yesterday Possible Cause: insect bite Associated Symptoms: denies symptoms Allergies and Home Medications Allergies Coded Allergies: alprazolam (Verified Allergy, Unknown, 11/28/17) pertussis vaccine,adsorbed (Unverified Allergy, Unknown, 11/28/17) Home Medications Hydrocodone Bit/Acetaminophen 1 Tab Tab, 1 EACH PO Q4H PRN for PAIN Prescribed by: BENITA FERRER on 06/25/182012 Ibuprofen 600 Mg Tablet, 600 MG PO Q6H Prescribed by: GLEN VOGEL on 01/08/18 0948 Patient Home Medication List Home Medication List Reviewed: Yes Constitutional: see HPI; No chills, No fever Skin: see HPI, change in color (left inner thigh) All Other Systems Reviewed Negative Unless Noted: Yes Past Ekqwyux-Zuukue-Whmran Hx Past Med/Social Hx: Reviewed Nursing Past Med/Soc Hx Patient Social History Alcohol Use: Denies Use Recreational Drug Use: No Type Used: Cigarettes Recent Foreign Travel: No Contact w/Someone Who Travel: No Recent Infectious Disease Expo: No Recent Hopitalizations: No Physical Abuse: No Sexual Abuse: No Immunizations Up To Date Tetanus Booster (TDap): Less than 5yrs PED Vaccines UTD: Yes Date of Influenza Vaccine: Oct 06, 2017 Seasonal Allergies Seasonal Allergies: No Past Medical History Surgeries: Yes (tubes removed, d/c) Tonsillectomy Respiratory: No Cardiac: No Neurological: No Headaches /Migraines Reproductive Disorders: No Female Reproductive Disorders: Denies Sexually Transmitted Disease: No HIV/AIDS: No Genitourinary: No Kidney Infection, UTI-Chronic Gastrointestinal: Yes Gastroesophageal Reflux Musculoskeletal: No Endocrine: Yes Hypothyroidsim HEENT: No Cancer: No Psychosocial: No Anxiety, Depression Nursing Suicide Risk Score: 0 Integumentary: No Blood Disorders: Yes (anemia) Adverse Reaction/Blood Tranf: No Family Medical History Reviewed Nursing Family Hx Patient reports no known family medical history. No Pertinent Family Hx Physical Exam Vital Signs Vital Signs - First Documented 06/25/18 19:20 Temp 98.9 Pulse 86 Resp 14 B/P (MAP) 137/95 (109) Pulse Ox 98 O2 Delivery Room Air Capillary Refill : Less Than 3 Seconds General Appearance: WD/WN, no apparent distress Cardiovascular: regular rate, rhythm, no edema, no gallop, no JVD, no murmur Respiratory: chest non-tender, lungs clear, normal breath sounds, no respiratory distress, no accessory muscle use Neurologic/Psychiatric: alert, normal mood/affect, oriented x 3 Skin: normal color, warm/dry Skin Problem Location: lower extremities (inner thigh left) Skin Problem Character: other (8 x 8 cm area of ecchymosis to the left inner thigh) Progress/Results/Core Measures Results/Orders Lab Results Laboratory Tests Test 06/25/18 19:24 Range/Units White Blood Count 7.7 4.3-11.0 10^3/uL Red Blood Count 4.77 4.35-5.85 10^6/uL Hemoglobin 13.8 11.5-16.0 G/DL Hematocrit 41 35-52 % Mean Corpuscular Volume 85 80-99 FL Mean Corpuscular Hemoglobin 29 25-34 PG Mean Corpuscular Hemoglobin Concent 34 32-36 G/DL Red Cell Distribution Width 14.4 10.0-14.5 % Platelet Count 271 130-400 10^3/uL Mean Platelet Volume 10.2 7.4-10.4 FL Neutrophils (%) (Auto) 54 42-75 % Lymphocytes (%) (Auto) 39 12-44 % Monocytes (%) (Auto) 5 0-12 % Eosinophils (%) (Auto) 2 0-10 % Basophils (%) (Auto) 0 0-10 % Neutrophils # (Auto) 4.2 1.8-7.8 X 10^3 Lymphocytes # (Auto) 3.0 1.0-4.0 X 10^3 Monocytes # (Auto) 0.4 0.0-1.0 X 10^3 Eosinophils # (Auto) 0.1 0.0-0.3 10^3/uL Basophils # (Auto) 0.0 0.0-0.1 10^3/uL Sodium Level 138 135-145 MMOL/L Potassium Level 4.0 3.6-5.0 MMOL/L Chloride Level 106 98-107 MMOL/L Carbon Dioxide Level 23 21-32 MMOL/L Anion Gap 9 5-14 MMOL/L Blood Urea Nitrogen 14 7-18 MG/DL Creatinine 0.74 0.60-1.30 MG/DL Estimat Glomerular Filtration Rate > 60 BUN/Creatinine Ratio 19 Glucose Level 92 70-105 MG/DL Calcium Level 9.5 8.5-10.1 MG/DL Corrected Calcium 9.2 8.5-10.1 MG/DL Total Bilirubin 0.2 0.1-1.0 MG/DL Aspartate Amino Transf (AST/SGOT) 14 5-34 U/L Alanine Aminotransferase (ALT/SGPT) 18 0-55 U/L Alkaline Phosphatase 59 40-136 U/L Total Protein 7.2 6.4-8.2 GM/DL Albumin 4.4 3.2-4.5 GM/DL My Orders Orders - BENITA FERRER Cbc With Automated Diff (06/25/18 19:21) Comprehensive Metabolic Panel (06/25/18 19:21) Hydrocodone/Apap 5/325 Tablet (Lortab 5 (06/25/18 20:15) Rx-Hydrocodone/Apap 5-325 Mg (Rx-Vicodin (06/25/18 20:30) Vital Signs/I&O 06/25/18 06/25/18 19:20 20:28 Temp 98.9 Pulse 86 78 Resp 14 14 B/P (MAP) 137/95 (109) 137/95 Pulse Ox 98 98 O2 Delivery Room Air Room Air Blood Pressure Mean: 109 Progress Progress Note : Time: 19:45 Progress Note I have seen and evaluated the patient. The patient has been informed to follow up with [facility]/ [facility] Mack [facility]. Contact information was provided. She agrees with plans of care, close follow up, and return precautions. Departure Impression Primary Impression: Spider bite wound Qualified Codes: T63.301A - Toxic effect of unspecified spider venom, accidental (unintentional), initial encounter Disposition: 01 HOME, SELF-CARE Condition: Stable/Unchanged Departure-Patient Inst. Decision time for Depature: 20:10 Referrals: AMOS HENLEY DO (PCP) Primary Care Physician NAYA CALERO (Family) Primary Care Physician RED PARR MD Patient Instructions: Insect Bites and Stings (DC) Add. Discharge Instructions: Take medication as directed. Follow-up with wound care tomorrow. Call first thing tomorrow morning for an appointment time. [phone] . Follow-up with [facility] within 1 week for recheck. Return back to the emergency room for any worsening pain, fevers, or any other concerns as needed. All discharge instructions reviewed with patient and/or family. Voiced understanding. Scripts Hydrocodone Bit/Acetaminophen (Hydrocodone/Acetaminophen 5/325mg Tablet) 1 Tab Tab 1 EACH PO Q4H PRN for PAIN, #14 TAB Prov: BENITA FERRER 06/25/18 BENITA FERRER Jun 25, 2018 19:46
[2018-06-25 19:51] LABS: ALANINE AMINOTRANSFERASE 18 U/L (0-55); ALBUMIN 4.4 GM/DL (3.2-4.5); ALKALINE PHOSPHATASE 59 U/L (40-136); BILIRUBIN,TOTAL 0.2 MG/DL (0.1-1.0); BUN/CREATININE RATIO 19; CALCIUM 9.5 MG/DL (8.5-10.1); CARBON DIOXIDE 23 MMOL/L (21-32); CHLORIDE 106 MMOL/L (98-107); CREATININE SERUM 0.74 MG/DL (0.60-1.30); GFR ESTIMATED > 60; GLUCOSE 92 MG/DL (70-105); SODIUM 138 MMOL/L (135-145); TOTAL PROTEIN 7.2 GM/DL (6.4-8.2)
[2018-06-25] MEDS ORDERED: ACHD5005 PO (20:13)
[2018-06-25] MEDS ORDERED: HYDROcodone/APAP 5 MG/325 MG (LORTAB) TAB PO ONE (20:15)
[2018-06-25 20:28] VITALS: BP 137/95
[2018-06-25] MEDS ORDERED: RX-HYDROCODONE/APAP 5/325 MG #4 TAB PK PO PRN (20:30)
== END 2018-06-25 20:29 | disposition home or self-care (01) ==
LOC: EDUNIT# 18:55 → ER 18:56
DX: T63.301A Toxic effect of unspecified spider venom, accidental (unintentional), initial encounter (principal); G43.909 Migraine, unspecified, not intractable, without status migrainosus; K21.9 Gastro-esophageal reflux disease without esophagitis; E03.9 Hypothyroidism, unspecified; F41.9 Anxiety disorder, unspecified; F32.9 Major depressive disorder, single episode, unspecified; D64.9 Anemia, unspecified; Z87.440 Personal history of urinary (tract) infections; Z88.8 Allergy status to other drugs, medicaments and biological substances; Z88.7 Allergy status to serum and vaccine; Z90.89 Acquired absence of other organs
CPT/HCPCS: 36415; 80053; 85025; 99283

== ENCOUNTER → 2018-12-22 | Emergency (ER) | payer MEDICAID ==
[~2018-12-22] VITALS: Ht 175.3 cm; Wt 89.4 kg
[~2018-12-22] MED LIST changes: +CEPH-507 PO; +HYDR-4226 PO; +LIDOCAINE 1% INJ 20 ML 20 ML VIAL INJ ONE; +LIDOCAINE 1% INJ 20 ML 20 ML VIAL ONE; +SULF1TAB35 PO
--- NOTE | 2018-12-22 10:15 | NUR ---
Apologized for wait and pt taken warm blanket at this time. Will continue to monitor.
--- NOTE | 2018-12-22 10:59 | ED Integumentary General ---
General Chief Complaint: Skin/Wound Problems Stated Complaint: ABSCESS BUTTOCK Nursing Triage Note: Ambulatory to rm 7. Pt reports abscess on R buttock that pt first noticed a couple of days ago. Pt reports abscess has grown in size and is now hot and painful to the touch. Pt reports pain radiating into the calf. Source: patient Exam Limitations: no limitations History of Present Illness Date Seen by Provider: Dec 22, 2018 Time Seen by Provider: 10:57 Initial Comments To ER with an abscess to the right buttocks for about 3-4 days. Timing/Duration: getting worse Severity: moderate Associated Symptoms: denies symptoms Allergies and Home Medications Allergies Coded Allergies: alprazolam (Verified Allergy, Unknown, 11/28/17) pertussis vaccine,adsorbed (Unverified Allergy, Unknown, 11/28/17) Home Medications Hydrocodone Bit/Acetaminophen 1 Tab Tab, 1 EACH PO Q4H PRN for PAIN Prescribed by: BENITA FERRER on 06/25/182012 Ibuprofen 600 Mg Tablet, 600 MG PO Q6H Prescribed by: GLEN VOGEL on 01/08/18 0948 Patient Home Medication List Home Medication List Reviewed: Yes Review of Systems Review of Systems Constitutional: see HPI; No chills, No fever EENTM: see HPI Respiratory: no symptoms reported Cardiovascular: no symptoms reported Genitourinary: no symptoms reported Musculoskeletal: no symptoms reported Skin: see HPI Psychiatric/Neurological: No Symptoms Reported Past Bookyoj-Ztsjfk-Nkujzq Hx Patient Social History Alcohol Use: Denies Use Recreational Drug Use: No Smoking Status: Current Everyday Smoker Type Used: Cigarettes 2nd Hand Smoke Exposure: Yes Recent Foreign Travel: No Contact w/Someone Who Travel: No Recent Infectious Disease Expo: No Recent Hopitalizations: No Physical Abuse: No Sexual Abuse: No Immunizations Up To Date Tetanus Booster (TDap): Less than 5yrs PED Vaccines UTD: Yes Date of Influenza Vaccine: Oct 06, 2017 Seasonal Allergies Seasonal Allergies: No Past Medical History Surgeries: Yes (tubes removed, d/c) Tonsillectomy Respiratory: No Cardiac: No Neurological: No Headaches /Migraines Last Menstrual Period: Nov 20, 2018 Reproductive Disorders: No Female Reproductive Disorders: Denies Sexually Transmitted Disease: No HIV/AIDS: No Genitourinary: No Kidney Infection, UTI-Chronic Gastrointestinal: Yes Gastroesophageal Reflux Musculoskeletal: No Endocrine: Yes Hypothyroidsim HEENT: No Cancer: No Psychosocial: No Anxiety, Depression Integumentary: No Blood Disorders: Yes (anemia) Adverse Reaction/Blood Tranf: No Family Medical History Patient reports no known family medical history. No Pertinent Family Hx Physical Exam Vital Signs Vital Signs - First Documented 12/22/18 08:45 Temp 98.0 Pulse 82 Resp 18 B/P (MAP) 142/85 (104) Pulse Ox 100 O2 Delivery Room Air Capillary Refill : Less Than 3 Seconds General Appearance: WD/WN, no apparent distress HEENT: PERRL/EOMI, normal ENT inspection Neck: non-tender, full range of motion Respiratory: no respiratory distress, no accessory muscle use Gastrointestinal: non tender, soft Neurologic/Psychiatric: alert, normal mood/affect, oriented x 3 Skin: normal color, warm/dry Skin Problem Character: abscess Procedures/Interventions I&D : Blade Size: 11 Progress Anesthetized with 1 mL of 1% lidocaine without epinephrine. Incision was made with an 11 blade scalpel. Moderate amount of purulent material was expressed. Culture collected and sent to lab. Progress/Results/Core Measures Results/Orders My Orders Orders - PRAFUL RAY APRN Lidocaine 1% Inj 20 Ml (Xylocaine 1% Inj (12/22/18 10:44) Wound Culture (12/22/18 10:55) Lidocaine 1% Inj 20 Ml (Xylocaine 1% Inj (12/22/18 11:00) Vital Signs/I&O 12/22/18 08:45 Temp 98.0 Pulse 82 Resp 18 B/P (MAP) 142/85 (104) Pulse Ox 100 O2 Delivery Room Air Blood Pressure Mean: 104 Departure Impression Primary Impression: Abscess Disposition: 01 HOME, SELF-CARE Condition: Stable Departure-Patient Inst. Decision time for Depature: 10:57 Referrals: AMOS HENLEY DO (PCP) Primary Care Physician NAYA CALERO (Family) Primary Care Physician Patient Instructions: Abscess Incision and Drainage (DC) Add. Discharge Instructions: 1. Return to ER for any concerns 2. Follow-up with your doctor next week 3. Change the dressing as needed 4. Biaxin as directed. All discharge instructions reviewed with patient and/or family. Voiced understanding. Scripts Hydrocodone/Acetaminophen ([place] 5-325 Tablet) 1 Each Tablet 1 EACH PO Q6H PRN for PAIN-MODERATE MDD 10, #10 TAB Prov: PRAFUL RAY APRN 12/22/18 Cephalexin (Keflex) 500 Mg Capsule 500 MG PO TID, #21 CAP Prov: PRAFUL RAY APRN 12/22/18 Sulfamethoxazole/Trimethoprim (Bactrim Ds Tablet) 1 Each Tablet 1 EACH PO BID, #14 TAB Prov: PRAFUL RAY APRN 12/22/18 Work/School Note: Work Release Form Date Seen in the Emergency Department: Dec 22, 2018 Return to Work: Dec 24, 2018 PRAFUL RAY APRN Dec 22, 2018 10:59
[2018-12-22 11:04] VITALS: BP 121/82
== END | disposition home or self-care (01) ==
LOC: EDUNIT# 08:13 → ER 08:16
DX: L02.31 Cutaneous abscess of buttock (principal); K21.9 Gastro-esophageal reflux disease without esophagitis; E03.9 Hypothyroidism, unspecified; F41.9 Anxiety disorder, unspecified; F32.9 Major depressive disorder, single episode, unspecified; D64.9 Anemia, unspecified; G43.909 Migraine, unspecified, not intractable, without status migrainosus; F17.210 Nicotine dependence, cigarettes, uncomplicated; Z87.440 Personal history of urinary (tract) infections; Z90.89 Acquired absence of other organs; Z98.890 Other specified postprocedural states; Z88.7 Allergy status to serum and vaccine; Z88.8 Allergy status to other drugs, medicaments and biological substances
CPT/HCPCS: 87070; 87077; 87205; 99282

== ENCOUNTER 2019-03-19 18:36 | Emergency (ER) | payer MEDICAID ==
[~2019-03-19] VITALS: Ht 175.3 cm; Wt 81.6 kg
[~2019-03-19 18:36] MED LIST changes: -LIDOCAINE 1% INJ 20 ML 20 ML VIAL INJ ONE; -LIDOCAINE 1% INJ 20 ML 20 ML VIAL ONE
[2019-03-19] MEDS ORDERED: SUMA50TA2 (18:52)
--- NOTE | 2019-03-19 19:00 | NUR ---
This nurse to assume care of pt @ this time.
[2019-03-19] MEDS ORDERED: diphenhydrAMINE 50 MG/ML INJ (BENADRYL) IM ONE (19:15)
[2019-03-19] MEDS ORDERED: PROCHLORPERAZINE 10 MG/2ML INJ (COMPAZINE) IM ONE (19:15)
[2019-03-19] MEDS ORDERED: KETOROLAC 60 MG/2 ML VIAL IM ONE (19:15)
--- NOTE | 2019-03-19 19:22 | ED Headache ---
General Chief Complaint: Head/Cervical Problems Stated Complaint: HEADACHE Nursing Triage Note: ONSET 1300. PT TOOK SOMATROPIN WITHOUT RELIEF. PT STATES MIGRAINE 2 DAYS AGO. Nursing Sepsis Screen: No Definite Risk Source: patient Exam Limitations: no limitations History of Present Illness Date Seen by Provider: March 19, 2019 Time Seen by Provider: 19:05 Initial Comments 20-year-old female who presents to emergency room with complaints of migraine headache that started around 1300. She is prescribed somatotropin that she takes she gets an aura improved her migraine at this time. She reports this is very similar to her migraines. She is alert and oriented on arrival to the emergency room. Timing/Duration: 4-6 hours Location: global Prior Headaches/Recent Trauma: frequent headaches Associated Symptoms: denies symptoms Allergies and Home Medications Allergies Coded Allergies: alprazolam (Verified Allergy, Unknown, 11/28/17) pertussis vaccine,adsorbed (Unverified Allergy, Unknown, 11/28/17) Patient Home Medication List Home Medication List Reviewed: Yes Review of Systems Review of Systems Constitutional: see HPI; No chills, No fever Psychiatric/Neurological: See HPI, Headache All Other Systems Reviewed Negative Unless Noted: Yes Past Vpgvymb-Ospjbe-Sfwhyz Hx Past Med/Social Hx: Reviewed Nursing Past Med/Soc Hx Patient Social History Alcohol Use: Denies Use Recreational Drug Use: No Smoking Status: Current Everyday Smoker Type Used: Cigarettes 2nd Hand Smoke Exposure: Yes Recent Foreign Travel: No Contact w/Someone Who Travel: No Recent Infectious Disease Expo: No Recent Hopitalizations: No Immunizations Up To Date Tetanus Booster (TDap): Less than 5yrs PED Vaccines UTD: Yes Date of Influenza Vaccine: Oct 06, 2017 Seasonal Allergies Seasonal Allergies: No Past Medical History Surgeries: Yes (tubes removed, d/c) Tonsillectomy Respiratory: No Cardiac: No Neurological: No Headaches /Migraines Reproductive Disorders: No Female Reproductive Disorders: Denies Sexually Transmitted Disease: No HIV/AIDS: No Genitourinary: No Kidney Infection, UTI-Chronic Gastrointestinal: Yes Gastroesophageal Reflux Musculoskeletal: No Endocrine: Yes Hypothyroidsim HEENT: No Cancer: No Psychosocial: No Anxiety, Depression Integumentary: No Blood Disorders: Yes (anemia) Adverse Reaction/Blood Tranf: No Family Medical History Reviewed Nursing Family Hx Patient reports no known family medical history. No Pertinent Family Hx Physical Exam Vital Signs Vital Signs - First Documented 03/19/19 03/19/19 18:41 20:50 Temp 98.0 Pulse 84 Resp 18 B/P (MAP) 126/95 (105) Pulse Ox 100 O2 Delivery Room Air Capillary Refill : Less Than 3 Seconds Height, Weight, BMI Height: 5'9.00" Weight: 180lbs. 4.0oz. [id number]; 28.4 BMI Method:Stated General Appearance: WD/WN, no apparent distress Cardiovascular: normal peripheral pulses, regular rate, rhythm, no edema, no gallop, no JVD, no murmur Respiratory: chest non-tender, lungs clear, normal breath sounds, no respiratory distress, no accessory muscle use Extremities: normal capillary refill Psychiatric: alert, oriented x 3 Crainal Nerves: normal hearing, normal speech, PERRL Coordination/Gait: normal finger to nose, normal gait Skin: normal color, warm/dry Progress/Results/Core Measures Results/Orders My Orders Orders - BENITA FERRER Ketorolac Injection (Toradol Injection) (03/19/19 19:15) Prochlorperazine Injection (Compazine In (03/19/19 19:15) Diphenhydramine Injection (Benadryl Inje (03/19/19 19:15) Im/Sub-Q Injection Non-Ab Ed (03/19/19 ) Medications Given in ED Vital Signs/I&O 03/19/19 03/19/19 18:41 20:50 Temp 98.0 98.0 Pulse 84 76 Resp 18 18 B/P (MAP) 126/95 (105) Pulse Ox 100 O2 Delivery Room Air Room Air Progress Progress Note : Time: 20:43 Progress Note I have seen and evaluated the patient. Her migraine has resolved at this time. She agrees with plan of care, plans for discharge, return precautions were given. Departure Impression Primary Impression: Migraine Disposition: 01 HOME, SELF-CARE Condition: Stable/Unchanged Departure-Patient Inst. Decision time for Depature: 20:43 Referrals: [facility] [place]) Primary Care Physician Patient Instructions: Migraine Headache (DC) Add. Discharge Instructions: Resume your home medications as previously prescribed. Follow-up with your primary care provider as needed. Return back to the emergency room for worsening symptoms or concerns as needed. All discharge instructions reviewed with patient and/or family. Voiced understanding. BENITA FERRER March 19, 2019 19:22
[2019-03-19 20:50] VITALS: BP 126/95
== END 2019-03-19 20:50 | disposition home or self-care (01) ==
LOC: EDUNIT# 18:36 → ER 18:37
DX: G43.109 Migraine with aura, not intractable, without status migrainosus (principal); K21.9 Gastro-esophageal reflux disease without esophagitis; E03.9 Hypothyroidism, unspecified; F41.9 Anxiety disorder, unspecified; F32.9 Major depressive disorder, single episode, unspecified; D64.9 Anemia, unspecified; F17.210 Nicotine dependence, cigarettes, uncomplicated; Z88.8 Allergy status to other drugs, medicaments and biological substances; Z88.7 Allergy status to serum and vaccine; Z90.89 Acquired absence of other organs; Z87.440 Personal history of urinary (tract) infections; Z87.448 Personal history of other diseases of urinary system
CPT/HCPCS: 96372; 99284

== ENCOUNTER 2020-04-04 00:16 | Emergency (ER) | payer MEDICAID ==
[~2020-04-04] VITALS: Ht 170 cm; Wt 60.0 kg
[~2020-04-04 00:16] MED LIST changes: +SUMA50TA2
--- OUTSIDE RECORDS SUMMARY | 2020-04-04 00:21 | XMS REPORT ---
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 (06896) Platelets (Bld) 289 10*3/uL (N) 150 - 450 [facility] Health [#/Vol] 10*3/uL [facility] (98759) Potassium 4.1 mmol/L (N) 3.7 - 5.2 mmol/L [facility] [Moles/Vol] [facility] (13292) Protein (U) 3+ (no code) [facility]alt [facility] [Mass/Vol] [facility] (10112) Protein 7.1 g/dL (N) 6.4 - 8.3 g/dL [facility] [Mass/Vol] [facility] (76823) RBC (Bld) 4.86 10*6/uL (N) 4.2 - 6.1 [facility] [#/Vol] 10*6/uL [facility] (49034) Sodium 139 mmol/L (N) 135 - 145 mmol/L [facility] [Moles/Vol] [facility] (77386) TSH Qn 28.84 m[IU]/L (H) 0.4 - 4 m[IU]/L [facility] (33500) Urea nitrogen 13 mg/dL (N) 7 - 20 mg/dL [facility] [Mass/Vol] [facility] (71546) Urea NOT APPLICABLE (no code) [facility]/Creatin [facility] [Mass ratio] [facility] (34521) WBC (Bld) 6.3 10*3/uL (N) 3.5 - 10.5 [facility]al th [#/Vol] 10*3/uL [facility] (38637) not yet categorized on 2019-10-22 Urine Volume Urine Volume (no code) 10-22-2019 Hospital Sufficient 03:25-0500 [facility] (10mL) [facility] (93171) no information Urine Saved if (A) 10-22-2019 Hospital Culture Needed 03: [facility] (48hrs from time [facility] of collection) (29867) laboratory on 2019-10-22 Albumin BCG dye 4.4 (no code) 10-22-2019 Hospital [Mass/Vol] 03: [facility] (15505) ALP [Catalytic 57 U/L (no code) 44 - 147 U/L 10-22-2019 Hosp ital activity/Vol] 03: [facility] (15950) ALT [Catalytic U/L (no code) 4 - 40 U/L 10-22-2019 Hospit al activity/Vol] 03: [facility] (96683) Anion gap 13 mmol/L (no code) 3 - 11 mmol/L 10-22-2019 Hospital [Moles/Vol] 03: [facility] (77785) AST [Catalytic 10 U/L (no code) 10 - 34 U/L 10-22-2019 Hospi angella activity/Vol] 03: [facility] (47280) Bacteria LM Ql 3+ (A) 10-22-2019 Hospital (Urine sed) 03: [facility] (05061) Basophils (Bld) 0.0 10*3/uL (no code) 0 - 0.3 10*3/uL 10-22-2019 Hospital [#/Vol] 03: [facility] (20169) Basophils/100 0.30 % (no code) 0.5 - 1 % 10-22-2019 Hospital WBC (Bld) 03: [facility] (85439) Beta HCG Negative (no code) 10-22-2019 Hospital ( test) 03: [facility] (13960) Bilirubin 0.3 mg/dL (no code) 0.1 - 1.2 mg/dL 10-22-2019 Hospit al [Mass/Vol] 03: [facility] (31685) Bilirubin N/A (A) 10-22-2019 Hospital Confirm Ql (U) 03: [facility] (73431) Bilirubin Ql (U) Negative (no code) 10-22-2019 Hospital 03: [facility] (64918) Calcium 9.5 mg/dL (no code) 8.5 - 10.2 mg/dL 10-22-2019 Hospi angella [Mass/Vol] 03: [facility] (92654) Chloride 108 mmol/L (no code) 95 - 106 mmol/L 10-22-2019 Hospi angella [Moles/Vol] 03: [facility] (79388) Clarity (U) Cloudy (A) 10-22-2019 Hospital 03: [facility] (74172) Color (U) Yellow (no code) 10-22-2019 Hospital 03: [facility] () Creatinine 0.77 mg/dL (no code) 10-22-2019 Hospital [Mass/Vol] 03: [facility] (06040) Eosinophils 0.1 10*3/uL (no code) 0.05 - 0.5 10-22-2019 Hospita l (Bld) [#/Vol] 10*3/uL 03: [facility] (56571) Eosinophils/100 1.7 % (no code) 1 - 4 % 10-22-2019 Hospit al WBC (Bld) 03: [facility] (41807) Epithelial TNTC (A) 10-22-2019 Hospital cells.squamous 03: [facility] LM.HPF (Urine [facility] sed) [#/Area] (67417) Erythrocyte 13.2 % (no code) 11.6 - 14.6 % 10-22-2019 Hospit al distribution 03: [facility] width (RBC) [facility] [Ratio] (48710) GFR/1.73 sq 89 (no code) 90 - 120 10-22-2019 Hospital M.predicted MDRD mL/min/{1.73_m2} mL/min/{1.73_m2} 03: [facility] (S/P/Bld) [Vol [facility] rate/Area] (38272) Globulin (S) 2.9 g/dL (no code) 2 - 3.5 g/dL 10-22-2019 Hospit al [Mass/Vol] 03: [facility] () Glucose 96 mg/dL (no code) 60 - 125 mg/dL 10-22-2019 Hospita l [Mass/Vol] 03: [facility] () Glucose Test Negative (no code) 10-22-2019 Hospital strip (U) 03: [facility] [Mass/Vol] [facility] () HCO3 (P) 24 (no code) 10-22-2019 Hospital [Moles/Vol] 03: [facility] () Hematocrit (Bld) 42.3 % (no code) 36.1 - 50.3 % 10-22-2019 H ospital [Volume 03: [facility] fraction] [facility] () Hemoglobin (Bld) 14.2 g/dL (no code) 12.1 - 17.2 g/dL 10-22-2019 Hospital [Mass/Vol] 03: [facility] () Hemoglobin Ql Negative (no code) 10-22-2019 Hospital (U) 03: [facility] () Ketones (U) Negative (no code) 10-22-2019 Hospital [Mass/Vol] 03: [facility] (70149) Leukocyte Negative (no code) 10-22-2019 Hospital esterase Test 03: [facility] strip Ql (U) [facility] () Lymphocytes 2.58 10*3/uL (no code) 0.9 - 2.9 10-22-2019 Hospita l (Bld) [#/Vol] 10*3/uL 03: [facility] (64723) Lymphocytes/100 34.7 % (no code) 20 - 40 % 10-22-2019 Hospit al WBC (Bld) 03: [facility] (63671) MCH (RBC) 29.5 pg (no code) 27 - 31 pg 10-22-2019 Hospital [Entitic mass] 03: [facility] (59308) MCHC (RBC) 33.6 g/dL (no code) 32 - 36 g/dL 10-22-2019 Hospital [Mass/Vol] 03: [facility] (96789) MCV (RBC) 87.8 fL (no code) 80 - 100 fL 10-22-2019 Hospital [Entitic vol] 03: [facility] (53804) Monocytes (Bld) 0.5 10*3/uL (no code) 0.3 - 0.9 10-22-2019 Hosp ital [#/Vol] 10*3/uL 03: [facility] (30060) Monocytes/100 6.2 % (no code) 2 - 8 % 10-22-2019 Hospital WBC (Bld) 03: [facility] (69882) Mucus Ql (Urine 4+ (A) 10-22-2019 Hospital sed) 03: [facility] (05530) Neutrophils 4.25 10*3/uL (no code) 1.7 - 7 10*3/uL 10-22-2019 H ospital (Bld) [#/Vol] 03: [facility] (43305) Neutrophils/100 57.1 % (no code) 40 - 60 % 10-22-2019 Hospit al WBC (Bld) 03: [facility] (61623) Nitrite Ql (U) Negative (no code) 10-22-2019 Hospital 03: [address] (47112) Osmolality Calc 291 (no code) 10-22-2019 Hospital [Osmolality] 03: [facility] (69345) pH (U) 6.0 [pH] (no code) 4.6 - 8 [pH] 10-22-2019 Hospital 03: [facility] (74065) Platelet mean 10.3 fL (H) 7.2 - 11.7 fL 10-22-2019 Hosp ital volume (Bld) 03: [facility] [Entitic vol] [facility] () Platelets (Bld) 245 10*3/uL (no code) 150 - 450 10-22-2019 Hosp ital [#/Vol] 10*3/uL 03: [facility] () Potassium 3.5 mmol/L (no code) 3.7 - 5.2 mmol/L 10-22-2019 Hosp ital [Moles/Vol] 03: [facility] (98991) Protein (U) 3+ (A) 10-22-2019 Hospital [Mass/Vol] 03: [facility] () Protein 7.3 g/dL (no code) 6.4 - 8.3 g/dL 10-22-2019 Hospita l [Mass/Vol] 03: [facility] (55616) RBC (Bld) 4.82 10*6/uL (no code) 4.2 - 6.1 10-22-2019 Hospital [#/Vol] 10*6/uL 03: [facility] () RBC LM.HPF Rare/HPF (A) 10-22-2019 Hospital (Urine sed) 03: [facility] [#/Area] [facility] () Sodium 141 mmol/L (no code) 135 - 145 mmol/L 10-22-2019 Hosp ital [Moles/Vol] 03: [facility] (35372) Specific gravity >=1.030 (A) 10-22-2019 Hospital (U) [Rel 03: [facility] density] [facility] () TSH Qn 4.45 (no code) 10-22-2019 Hospital 03: [facility] (59450) Urea nitrogen 12 mg/dL (no code) 7 - 20 mg/dL 10-22-2019 Hospi angella [Mass/Vol] 03: [facility] (54050) Urobilinogen Qn [id number] (A) 10-22-2019 Hospital (U) {Divine'U}/dL 03: [facility] f [facility] (85483) WBC (Bld) 7.44 10*3/uL (no code) 3.5 - 10.5 10-22-2019 Hospital [#/Vol] 10*3/uL 03: [facility] (73969) WBC LM.HPF 5-10/HPF (A) 10-22-2019 Hospital (Urine sed) 03: [facility] [#/Area] [facility] (11977) Yeast.budding Ql No Yeast present (no code) 10-22-2019 Hosp ital (Urine sed) 03: [facility] (20112) thyroid on 2019-04-21 Free T4 1.5 ng/dL (N) 0.9 - 2.2 ng/dL [facility] [Mass/Vol] [facility] (11318) TSH Qn 5.71 m[IU]/L (H) 0.4 - 4 m[IU]/L [facility] (58076) bacteria identification in wound by culture on 2018-12-22 Bacteria Organism: (no code) [place] [address] identified [facility] [place] [facility] (Wound) simulans (60044) urinalysis on 2018-10-28 Amphetamines Ql no information (no code) [facility] (U) [facility] (31042) Benzodiazepines no information (no code) [facility] Ql (U) [facility] (37120) Benzoylecgonine no information (no code) [facility] Ql (U) [facility] (41028) Creatinine (U) 0 mg/dL (no code) [facility] [[facility] (26019) Methadone Ql (U) no information (no code) Community a [facility] (28596) Opiates Ql (U) no information (no code) [facility] (21170) Phencyclidine Ql no information (no code) [facility] (U) [facility] (17386) Specific gravity no information (no code) [facility] ([facility] [[facility] (43240) Tetrahydrocannab no information (no code) [facility] inol Ql (U) [facility] (07551) thyroid on 2018-10-28 TSH Qn 1.23 m[IU]/L (N) 0.4 - 4 m[IU]/L [facility] (96368) other on 2018-10-28 Alphahydroxyalpr no information (no code) [facility] azolam [facility] (13942) Alphahydroxymida no information (no code) [facility] zolam [facility] (59399) Alphahydroxytria no information (no code) [facility] (27597) Aminoclonazepam no information (no code) [facility] (62990) Amobarbital no information (no code) [facility] (98569) Amphetamine no information (no code) [facility] (12040) Butalbital no information (no code) [facility] (72580) Codeine no information (no code) [facility] (09342) EDDP no information (no code) [facility] (92983) Hydrocodone no information (no code) [facility] (25238) Hydromorphone no information (no code) [facility] (23761) Hydroxyethylflur no information (no code) [facility] azepam [facility] (40176) Lorazepam no information (no code) [facility] (77555) Marijuana no information (no code) [facility] (43134) Morphine no information (no code) [facility] (93568) Nordiazepam no information (no code) [facility] (35308) Norhydrocodone no information (no code) [facility] (67002) Noroxycodone no information (no code) [facility] (13298) Oxazepam no information (no code) [facility] (86082) Oxycodone no information (no code) [facility] (09477) Oxymorphone no information (no code) [facility] (29913) Pentobarbital no information (no code) [facility] (50149) Secobarbital no information (no code) [facility] (00860) Temazepam no information (no code) [facility] (85915) Abnormal no information (no code) [facility] Specimen [facility] Validity Test: [facility] (22845) Barbiturates no information (no code) [facility] (23200) Confirmation no information (no code) [facility] Testing [facility] Performed at: [facility] (38425) medMATCH no information (no code) [facility] Aminoclonazepam [facility] (20342) medMATCH no information (no code) [facility] Amobarbital [facility] (35105) medMATCH no information (no code) [facility] Amphetamine [facility] (33194) medMATCH no information (no code) [facility] Amphetamines [facility] (45325) medMATCH aOH no information (no code) [facility] alprazolam [facility] (77009) medMATCH aOH no information (no code) [facility] midazolam [facility] (28152) medMATCH aOH no information (no code) [facility] triazolam [facility] (54262) medMATCH no information (no code) [facility]bit[facility] (86474) medMATCH no information (no code) [facility] Benzodiazepines [facility] (73072) medMATCH no information (no code) [facility] Benzoylecgonine [facility] (33995) medMATCH no information (no code) [facility] Butalbital [facility] (34121) medMATCH Cocaine no information (no code) [facility] Metab [facility] (21330) medMATCH Codeine no information (no code) [facility] (59558) medMATCH EDDP no information (no code) [facility] (84346) medMATCH no information (no code) [facility] Hydrocodone [facility] (84083) medMATCH no information (no code) [facility] Hydromorphone [facility] (77532) medMATCH no information (no code) [facility] Lorazepam [facility] (89402) medMATCH no information (no code) [facility] Marijuana Metab [facility] (34709) medMATCH no information (no code) [facility] Marijuana Metab [facility] (04653) medMATCH no information (no code) [facility] Methadone [facility] (39791) medMATCH no information (no code) [facility] Methadone Metab [facility] (63218) medMATCH no information (no code) [facility] Methamphetamine [facility] (45251) medMATCH no information (no code) [facility] Morphine [facility] (55814) medMATCH no information (no code) [facility] Nordiazepam [facility] (72973) medMATCH no information (no code) [facility] Norhydrocodone [facility] (83470) medMATCH no information (no code) [facility] Noroxycodone [facility] (07223) medMATCH [place] no information (no code) [facility] flurazepam [facility] (86755) medMATCH Opiates no information (no code) [facility] (22506) medMATCH no information (no code) [facility] Oxazepam [facility] (74570) medMATCH no information (no code) [facility] Oxycod[facility] (08800) medMATCH no information (no code) [facility] Oxycodone [facility] (34961) medMATCH no information (no code) [facility] Oxymorphone [facility] (46752) medMATCH no information (no code) [facility] Pentobarbital [facility] (91104) medMATCH no information (no code) [facility] Phencyclidine [facility] (64459) medMATCH no information (no code) [facility] Phencyclidine [facility] (65856) medMATCH no information (no code) [facility] Phenobarbital [facility] (49394) medMATCH no information (no code) [facility] Secobarbital [facility] (44165) medMATCH no information (no code) [facility] Temazepam [facility] (75058) Methamphetamine 0 ug/mL (no code) [facility] th (U) [Mass/Vol] [facility] (44221) Oxidants Ql (U) no information (no code) [facility] (59194) Oxycodone Ql (U) no information (no code) [facility] (66400) pH (U) 0 [pH] (no code) 4.6 - 8 [pH] [facility] (25909) Prescribed Drug no information (no code) [facility] 1 [facility] (17623) Prescribed Drug no information (no code) [facility] 2 [facility] (16744) Prescribed Drug no information (no code) Community [facility] th 3 [facility] (73957) Prescribed Drug no information (no code) [facility] th 4 [facility] (09379) Prescribed Drug no information (no code) [facility] th 5 [facility] (33067) drug on 2018-10-28 Phenobarbital 0 ug/mL (no code) 10 - 30 ug/mL [facility] [Mass/Vol] [facility] (73432) liver panel (lft) on 2018-10-09 Albumin 4.5 g/dL (no code) 3.4 - 5.4 g/dL 10-09-2018 [facility] Health [Mass/Vol] 13:00-0500 [facility] (02281) Albumin/Globulin 1.8 (no code) 10-09-2018 [facility] [Mass ratio] 13:000500 [facility] (73079) ALP [Catalytic 56 U/L (no code) 44 - 147 U/L 10-09-2018 [facility] activity/Vol] 13:00-0500 [facility] (34776) ALT [Catalytic 7 U/L (no code) 4 - 40 U/L 10-09-2018 [facility] activity/Vol] 13:00-0500 [facility] (72665) AST [Catalytic 11 U/L (no code) 10 - 34 U/L 10-09-2018 [facility] activity/Vol] 13:00-0500 [facility] (58323) Bilirubin 0.4 mg/dL (no code) 0.1 - 1.2 mg/dL 10-09-2018 [facility] Health [Mass/Vol] 13:00-0500 [facility] (77083) Bilirubin.direct 0.1 mg/dL (no code) 0 - 0.3 mg/dL 10-09-2018 [facility] [Mass/Vol] 13:00-0500 [facility] (57043) Bilirubin.indire 0.3 (no code) 10-09-2018 [facility] ct [Mass/Vol] 13:00-0500 [facility] (71737) Globulin (S) 2.5 (no code) 10-09-2018 [facility] [Mass/Vol] 13:00-0500 [facility] (26256) Protein 7.0 g/dL (no code) 6.4 - 8.3 g/dL 10-09-2018 [facility] [Mass/Vol] 13:00-0500 [facility] (37364) venous blood hemoglobin measurement (mass/volume) on 2018-06-25 Hemoglobin (HGB) 13.8 g/dL (no code) 12.1 - 17.2 g/dL [facility] (85771) serum or plasma urea nitrogen/creatin ine mass ratio on 2018-06-25 BUN/Creatinine 19 mg/mg (no code) 6 - 22 mg/mg Via [facility] (34135) serum or plasma urea nitrogen measurement (mass/volume) on 2018-06-25 Urea nitrogen 14 mg/dL (no code) 7 - 20 mg/dL Via [facility] [address] (43135) serum or plasma total bilirubin measurement (mass/volume) on 2018-06-25 Bilirubin 0.2 mg/dL (no code) 0.1 - 1.2 mg/dL Via [facility] (total) [facility] ([id number]) serum or plasma sodium measurement (moles/volume) on 2018-06-25 Sodium 138 mmol/L (no code) 135 - 145 mmol/L Via [facility] ([id number]) serum or plasma protein measurement (mass/volume) on 2018-06-25 Protein 7.2 g/dL (no code) 6.4 - 8.3 g/dL Via [facility] [address] ([id number]) serum or plasma potassium measurement (moles/volume) on 2018-06-25 Potassium 4.0 mmol/L (no code) 3.7 - 5.2 mmol/L Via [facility] ([id number]) serum or plasma glucose measurement (mass/volume) on 2018-06-25 Glucose 92 mg/dL (no code) 60 - 125 mg/dL Via [facility] [address] ([id number]) serum or plasma creatinine measurement with calculation of estimated glomerular filtration rate on 2018-06-25 eGFR (non-black) no information (no code) Via [facility] ([id number]) serum or plasma creatinine measurement (mass/volume) on 2018-06-25 Creatinine 0.74 mg/dL (no code) Via [facility] (56140) serum or plasma chloride measurement (moles/volume) on 2018-06-25 Chloride 106 mmol/L (no code) 95 - 106 mmol/L Via [facility] ([id number]) serum or plasma calcium measurement (mass/volume) on 2018-06-25 Calcium 9.5 mg/dL (no code) 8.5 - 10.2 mg/dL Via [facility] ([id number]) serum or plasma aspartate aminotransferase measurement (enzymatic activity/volume) on 2018-06-25 Aspartate 14 U/L (no code) 10 - 34 U/L Via [facility] [place] ([id number]) serum or plasma anion gap determination (moles/volume) on 2018-06-25 Anion gap 9 mmol/L (no code) 3 - 11 mmol/L Via [facility] ([id number]) serum or plasma alkaline phosphatase measurement (enzymatic activity/volume) on 2018-06-25 Alkaline 59 U/L (no code) 44 - 147 U/L Via [facility] phosphatase [facility] (ALP) [place] ([id number]) serum or plasma albumin measurement (mass/volume) on 2018-06-25 Albumin 4.4 g/dL (no code) 3.4 - 5.4 g/dL Via [facility] [address] ([id number]) serum or plasma alanine aminotransferase measurement (enzymatic activity/volume) on 2018-06-25 Alanine 18 U/L (no code) 4 - 40 U/L Via [facility] aminotransferase [facility] (ALT) [place] ([id number]) carbon dioxide on 2018-06-25 CO2 23 mmol/L (no code) 23 - 29 mmol/L Via [facility] [address] ([id number]) calcium measurement corrected for albumin on 2018-06-25 Calcium 9.2 mg/dL (no code) 8.5 - 10.2 mg/dL Via [facility] ([id number]) blood neutrophils automated count (number/volume) on 2018-06-25 Neutrophils 4.2 10*3/uL (no code) 1.7 - 7 10*3/uL Via [facility] ([id number]) blood monocytes/100 leukocytes on 2018-06-25 Monocytes/100 5 % (no code) 2 - 8 % Via [facility] ([id number]) blood monocytes automated count (number/volume) on 2018-06-25 Monocytes 0.4 10*3/uL (no code) 0.3 - 0.9 Via [facility] 10*3/uL [facility] ([id number]) blood lymphocytes automated count (number/volume) on 2018-06-25 Lymphocytes 3.0 10*3/uL (no code) 0.9 - 2.9 Via [facility] 10*3/uL [facility] (70051) blood leukocytes automated count (number/volume) on 2018-06-25 WBC (Leukocytes) 7.7 10*3/uL (no code) 3.5 - 10.5 Via [facility] 10*3/uL [facility] ([id number]) blood hematocrit (volume fraction) on 2018-06-25 Hematocrit (HCT) 41 % (no code) 36.1 - 50.3 % Via [facility] (02950) blood erythrocytes automated count (number/volume) on 2018-06-25 Erythrocytes 4.77 10*6/uL (no code) 4.2 - 6.1 Via [facility] (RBC) 10*6/uL [facility] (16534) automated erythrocyte mean corpuscular volume on 2018-06-25 MCV 85 fL (no code) 80 - [address] [facility] ([id number]) automated erythrocyte mean corpuscular hemoglobin concentration measurement (mass/volume) on 2018-06-25 MCHC 34 g/dL (no code) 32 - 36 g/dL Via [facility] (49907) automated erythrocyte mean corpuscular hemoglobin (mass per erythrocyte) on 2018-06-25 MCH 29 pg (no code) 27 - [address] [facility] (01269) automated erythrocyte distribution width ratio on 2018-06-25 RDW-CA 14.4 % (no code) 11.6 - 14.6 % Via [facility] (74375) automated eosinophil count on 2018-06-25 Eosinophils 0.1 10*3/uL (no code) 0.05 - 0.5 Via [facility] 10*3/uL [facility] ([id number]) automated blood platelet mean volume measurement on 2018-06-25 Platelet mean 10.2 fL (no code) 7.2 - 11.7 fL Via [facility] volume (PMV) [facility] (37514) automated blood platelet count (count/volume) on 2018-06-25 Platelets 271 10*3/uL (no code) 150 - 450 Via [facility] 10*3/uL [facility] (89202) automated blood neutrophils/100 leukocytes on 2018-06-25 Neutrophils/100 54 % (no code) 40 - 60 % Via [facility] leukocytes [facility] (75210) automated blood lymphocytes/100 leukocytes on 2018-06-25 Lymphocytes/100 39 % (no code) 20 - 40 % Via [facility] leukocytes [facility] ([id number]) automated blood eosinophils/100 leukocytes on 2018-06-25 Eosinophils/100 2 % (no code) 1 - 4 % Via [facility] leukocytes [facility] ([id number]) automated blood basophils/100 leukocytes on 2018-06-25 Basophils/100 0 % (no code) 0.5 - 1 % Via [facility] leukocytes [facility] (25143) automated blood basophil count (count/volume) on 2018-06-25 Basophils 0.0 10*3/uL (no code) 0 - 0.3 10*3/uL Via [facility] (51224) thyroid on 2017-04-05 TSH Qn 35.890 (H) 04-05-2017 Not Available 08: (31165) other on 2017-04-05 Albumin/Globulin 1.9 {ratio} (no code) 1 - 2.5 {ratio} 7 Not Available [Mass ratio] 09: (39802) Erythrocyte 14.3 % (no code) 11.6 - 14.6 % 04-05-2017 Not Av ailable distribution 08: (23919) width (RBC) [Ratio] Globulin (S) 2.4 g/dL (no code) 2 - 3.5 g/dL 04-05-2017 Not Av ailable [Mass/Vol] 09: (37957) Immature 0.0 10*3/uL (no code) 0 - 0.2 10*3/uL 04-05-2017 Not Available granulocytes 08: (64804) (Bld) [#/Vol] Immature 0 % (no code) 0 - 0.5 % 04-05-2017 Not Availabl e granulocytes/100 08: (92302) WBC (Bld) MCHC (RBC) 33.3 g/dL (no code) 32 - 36 g/dL 04-05-2017 Not Avai lable [Mass/Vol] 08: (88603) metabolic panel on 2017-04-05 Albumin 4.6 g/dL (no code) 3.4 - 5.4 g/dL 04-05-2017 Not Mireya ilable [Mass/Vol] 09: (02167) ALP [Catalytic 44 U/L (no code) 44 - 147 U/L 04-05-2017 Not Available activity/Vol] 09: (53772) ALT [Catalytic 8 U/L (no code) 4 - 40 U/L 04-05-2017 Not Av ailable activity/Vol] 09: (14965) AST [Catalytic 12 U/L (no code) 10 - 34 U/L 04-05-2017 Not A vailable activity/Vol] 09: (00769) Bilirubin 0.3 mg/dL (no code) 0.1 - 1.2 mg/dL 04-05-2017 Not Av ailable [Mass/Vol] : (76100) Calcium 9.0 mg/dL (no code) 8.5 - 10.2 mg/dL 04-05-2017 Not A vailable [Mass/Vol] 09: (08012) Chloride 103 mmol/L (no code) 95 - 106 mmol/L 04-05-2017 Not A vailable [Moles/Vol] 09: (74840) CO2 [Moles/Vol] 19 mmol/L (no code) 23 - 29 mmol/L 04-05-2017 N ot Available : (13446) Creatinine 0.70 mg/dL (no code) 04-05-2017 Not Available [Mass/Vol] : (85048) GFR/1.73 sq M 138 (no code) 90 - 120 04-05-2017 Not Avai lable predicted among mL/min/{1.73_m2} mL/min/{1.73_m2} 09: (29859) blacks MDRD (S/P/Bld) [Vol rate/Area] GFR/1.73 sq M 120 (no code) 90 - 120 04-05-2017 Not Avai lable predicted among mL/min/{1.73_m2} mL/min/{1.73_m2} 09: (63087) non-blacks MDRD (S/P/Bld) [Vol rate/Area] Glucose 81 mg/dL (no code) 60 - 125 mg/dL 04-05-2017 Not Mireya ilable [Mass/Vol] 09: (92689) Potassium 4.1 mmol/L (no code) 3.7 - 5.2 mmol/L 04-05-2017 Not Available [Moles/Vol] 09: (08370) Protein 7.0 g/dL (no code) 6.4 - 8.3 g/dL 04-05-2017 Not Mireya ilable [Mass/Vol] 09: (42610) Sodium 140 mmol/L (no code) 135 - 145 mmol/L 04-05-2017 Not Available [Moles/Vol] 09: (26402) Urea nitrogen 14 mg/dL (no code) 7 - 20 mg/dL 04-05-2017 Not A vailable [Mass/Vol] 09: (55821) Urea 20 mg/mg (no code) 6 - 22 mg/mg 04-05-2017 Not Avail able nitrogen/Creatin 09: (97651) ine [Mass ratio] hematology on 2017-04-05 Basophils (Bld) 0.0 10*3/uL (no code) 0 - 0.3 10*3/uL 04-05-2017 Not Available [#/Vol] 08:0 (74998) Basophils/100 0 % (no code) 0.5 - 1 % 04-05-2017 Not Avai lable WBC (Bld) 08: (80208) Eosinophils 0.1 10*3/uL (no code) 0.05 - 0.5 04-05-2017 Not Mireya ilable (Bld) [#/Vol] 10*3/uL 08: (96160) Eosinophils/100 1 % (no code) 1 - 4 % 04-05-2017 Not Av ailable WBC (Bld) 08: (09156) Hematocrit (Bld) 42.4 % (no code) 36.1 - 50.3 % 04-05-2017 N ot Available [Volume 08: (25179) fraction] Hemoglobin (Bld) 14.1 g/dL (no code) 12.1 - 17.2 g/dL 04-05-2017 Not Available [Mass/Vol] 08: (43524) Lymphocytes 3.0 10*3/uL (no code) 0.9 - 2.9 04-05-2017 Not Avai lable (Bld) [#/Vol] 10*3/uL 08:040 (99639) Lymphocytes/100 34 % (no code) 20 - 40 % 04-05-2017 Not Av ailable WBC (Bld) 08: (90035) MCH (RBC) 28.8 pg (no code) 27 - 31 pg 04-05-2017 Not Availab le [Entitic mass] 08: (77109) MCV (RBC) 87 fL (no code) 80 - 100 fL 04-05-2017 Not Availa ble [Entitic vol] 08: (29016) Monocytes (Bld) 0.4 10*3/uL (no code) 0.3 - 0.9 04-05-2017 Not Available [#/Vol] 10*3/uL 08:0400 (93257) Monocytes/100 5 % (no code) 2 - 8 % 04-05-2017 Not Avai lable WBC (Bld) 08:0400 (36599) Neutrophils 5.3 10*3/uL (no code) 1.7 - 7 10*3/uL 04-05-2017 No t Available (Bld) [#/Vol] 08:0400 (52218) Neutrophils/100 60 % (no code) 40 - 60 % 04-05-2017 Not Av ailable WBC (Bld) 08:0400 (73552) Platelets (Bld) 189 10*3/uL (no code) 150 - 450 04-05-2017 Not Available [#/Vol] 10*3/uL 08: (63706) RBC (Bld) 4.89 10*6/uL (no code) 4.2 - 6.1 04-05-2017 Not Avail able [#/Vol] 10*6/uL 08:0400 (41068) WBC (Bld) 8.9 10*3/uL (no code) 3.5 - 10.5 04-05-2017 Not Avail able [#/Vol] 10*3/uL 08: (75874) Vital Signs Vital Sign Value Interpretation Reference Date Time Care Prov ider Facility (Normalized) (Normalized) Range BMI (Body Mass 32.5 kg/m2 (no code) 15 - 25 kg/m2 10-09-2018 [facility]UAN DIEGO [facility]ERRA[facility]) 10:0 [id number] [facility] ([id number]) BMI (Body Mass 31.84 kg/m2 (no code) 15 - 25 kg/m2 09-18-2018 MORIAH LESTER [facility]) 15:000500 95584 [facility] ([id number]) BMI (Body Mass 31.43 kg/m2 (no code) 15 - 25 kg/m2 09-10-2018 ASHLEYIMELDA LESTER [facility]) 15:00-0400 [address] [facility] ([id number]) Body 97.8 [degF] (no code) 97.8 - 99.0 10-09-2018 [facility] Temperature [degF] 10:0 [address]1951 [facility] ([id number]) Body 97.7 [degF] (no code) 97.8 - 99.0 09-18-2018 [facility] Temperature [degF] 15:000500 05256 [facility] ([id number]) Body 98.1 [degF] (no code) 97.8 - 99.0 09-10-2018 [facility] Temperature [degF] 15:000400 [id number] [place] [address] ([id number]) Height 170.18 cm (no code) cm 10-09-2018 RED [facility] 10:20-[address] [place] [address] ([id number]) Height 170.18 cm (no code) cm 09-18-2018 [facility] 15:00-[address] [place] [address] ([id number]) Height 170.18 cm (no code) cm 09-10-2018 [facility] 15:00-[address] [place] [address] ([id number]) Pulse Oximetry 98 % (no code) 95 - 100 % 10-09-2018 [facility] 10:20-[address] [place] [address] ([id number]) Pulse Oximetry 0 % (no code) 95 - 100 % 09-18-2018 [facility] 15:00-[address] [place] [address] ([id number]) Pulse Oximetry 0 % (no code) 95 - 100 % 09-10-2018 [facility] 15:00-[address] [place] [address] ([id number]) Weight 94.12 kg (no code) kg 10-09-2018 [facility] 10:20-[address] [place] [address] ([id number]) Weight 92.22 kg (no code) kg 09-18-2018 [facility] 15:00-[address] [place] [address] ([id number]) Weight 91.04 kg (no code) kg 09-10-2018 [facility] 15:00-[address] [place] [address] ([id number]) Interventions No Information Plan of Treatment Normalized Care Care Detail Care Activity Date Care Provider F acility Activity (ACUTE) Acute Visit [facility] 10-01-[address] [facility] ([id number]) (PROC-20) [facility] 10-28-[address] Procedure-20 min [facility] ([id number]) (PROC-40) no information 09-18-[address] [facility] Procedure-40 min [facility] ([id number]) Goals No Information Social History The data below is from unstructured sources History Response Recorde d Date/Time Hx Family Cancer Y 07/17 8:10pm Hx Family Breast Cancer Y MATERNAL 07/17/11 8:10pm Hx Family Lung Cancer N 07/17/11 8:10pm Hx Family Colorectal Cancer N 07/17/11 8:10pm Hx Family Cardiac Disorders N 07/17/11 8:10pm Hx Family Myocardial Infarction Y 06/03/11 10:28pm History Response Recorde d Date/Time Alcohol Use Denies Use 0 03/22/13 10:06pm Recreational Drug Use Y Previous history 05/28/13 7:03am Sexually Transmitted Disease N 03/22/13 10:06pm History Response Recorde d Date/Time Hx Family Cancer Y 07/17 8:10pm Hx Family Breast Cancer Y MATERNAL 07/17/11 8:10pm Hx Family Lung Cancer N 07/17/11 8:10pm Hx Family Colorectal Cancer N 07/17/11 8:10pm History Response Recorde d Date/Time Alcohol Use Denies Use 0 03/22/13 10:06pm Recreational Drug Use N 03/22/13 10:06pm History Response Recorde d Date/Time Hx Family Cancer Y 06/30 12:14pm Hx Family Breast Cancer Y MATERNAL 06/30/13 12:14pm Hx Family Lung Cancer N 06/30/13 12:14pm Hx Family Colorectal Cancer N 06/30/13 12:14pm Hx Family Cardiac Disorders N 06/30/13 12:14pm Hx Family Myocardial Infarction Y 06/30/13 12:14pm History Response Recorde d Date/Time Alcohol Use Denies Use 0 06/30/13 12:12pm Recreational Drug Use Y Previous history 06/30/13 12:12pm Sexually Transmitted Disease N 06/30/13 12:12pm Functional Status The data below is from unstructured sources Query Response Date Raza rded Patient Orientation Person Place Time Situation Normal For Age June 23, 2016 3:41pm Query Response Date Raza rded Comprehension Ability Understands Co ncepts March 19, 2019 6:53pm Mental Status No Information Encounters Encounter Normalized Encounter Encounter Diagnosis Care Provi ivan Organization Date Type 03-19-2019 Emergency department no information [facility] ( no no organization name - patient visit phone) 03-19-2019 12-22-2018 Emergency department no information PRAFUL Muñiz APRN BA [facility] no organization name - patient visit Work Phone: 12-22-2018 06-25-2018 Emergency department no information [facility] ( no no organization name - patient visit phone) 06-25-2018 04-11-2017 Emergency department no information no name no organization name - patient visit 04-11-2017 01-31-2013 Emergency department no information no name no organization name - patient visit 01-31-2013 12-22-2012 Emergency department no information no name no organization name - patient visit 12-22-2012 10-10-2012 Emergency department no information no name no organization name - patient visit 10-10-2012 05-23-2012 Emergency department no information no name no organization name - patient visit 05-23-2012 04-17-2012 Emergency department no information no name no organization name - patient visit 04-17-2012 04-07-2012 Emergency department no information no name no organization name - patient visit 04-08-2012 03-28-2012 Emergency department no information no name no organization name - patient visit 03-29-2012 03-12-2012 Emergency department no information no name no organization name - patient visit 03-12-2012 03-06-2012 Emergency department no information no name no organization name - patient visit 03-06-2012 02-17-2012 Emergency department no information no name no organization name - patient visit 02-17-2012 02-17-2012 Emergency department no information no name no organization name - patient visit 02-17-2012 12-04-2011 Emergency department no information no name no organization name - patient visit 12-04-2011 01-06-2018 Evaluation and no information no name no organ ization name - management of 01-08-2018 inpatient 06-25-2018 Patient encounter no information no name no or ganization name 03-21-2018 Patient encounter no information no name no or ganization name - 03-21-2018 01-06-2018 Patient encounter no information no name no or ganization name - 01-08-2018 12-06-2017 Patient encounter no information no name no or ganization name 10-24-2017 Patient encounter no information no name no or ganization name 08-23-2017 Patient encounter no information no name no or ganization name 01-23-2013 Patient encounter no information no name no or ganization name Patient encounter no information no name no organizat ion name 03-23-2020 Patient encounter no information [facility] phone[facility] (no phone) [facility] (no phone) 03-17-2020 Patient encounter no information [facility] procedure phone) (no phone) [facility] (no phone) 03-16-2020 Patient encounter no information (no phone) [facility] procedure [facility] (no phone) 10-22-2019 Patient encounter no information no name no or ganization name - procedure 10-22-2019 04-21-2019 Patient encounter no information no name no or ganization name procedure 04-21-2019 Patient encounter no information no name no or ganization name procedure 03-19-2019 Patient encounter no information no name no or ganization name procedure 03-19-2019 Patient encounter no information no name no or ganization name procedure 12-22-2018 Patient encounter no information no name no or ganization name procedure 12-04-2018 Patient encounter no information no name no or ganization name procedure 10-28-2018 Patient encounter no information no name no or ganization name procedure 10-09-2018 Patient encounter no information no name no or ganization name procedure 06-18-2017 Patient encounter no information no name no or ganization name procedure 04-11-2017 Patient encounter no information no name no or ganization name procedure Medical Equipment No Information Payers Normalized Payer Value Medicaid no information Advance Directives Directive Response Recor ded Date/Time Advance Directives No 4:27pm Health Care Power of [place] Operator No 06/06/16 4:27pm Organ Donor No 06/06/16 4:27pm Resuscitation Status Full Code 06/06/16 4:27pm Directive Response Recor ded Date/Time Advance Directives No 3:22am Health Care Power of [place] Operator No 06/10/16 3:22am Organ Donor No 06/10/16 3:22am Resuscitation Status Full Code 06/10/16 3:22am Directive Response Recor ded Date/Time Advance Directives No 7:41pm Health Care Power of [place] Operator No 06/20/16 7:41pm Organ Donor No 06/20/16 7:41pm Resuscitation Status Full Code 06/20/16 7:41pm Directive Response Recor ded Date/Time Advance Directives No 12:31pm Health Care Power of [place] Operator No 04/07/16 12:31pm Organ Donor No 04/07/16 12:31pm Resuscitation Status Full Code 04/07/16 12:31pm Directive Response Recor ded Date Advance Directives N 9:00pm Health Care Power of [place] Operator N 05/27/13 9:00pm Organ Donor N 05/27/13 9 :00pm Directive Response Recor ded Date Advance Directives N 11:30am Health Care Power of [place] Operator N 03/22/13 10:06pm Organ Donor N 04/05/13 1 1:30am Directive Response Recor ded Date Advance Directives N 10/23 10:06pm Health Care Power of [place] Operator N 03/22/13 10:06pm Organ Donor Y 03/22/13 1 0:06pm Directive Response Recor ded Date Advance Directives N 03/23 2:34am Health Care Power of [place] Operator N 06/15/13 2:34am Organ Donor Y 06/15/13 2 :34am Directive Response Recor ded Date Advance Directives N 6:20am Health Care Power of [place] Operator N 06/30/13 6:20am Organ Donor Y 06/30/13 6 :20am Directive Response Recor ded Date/Time Advance Directives No 8:46am Health Care Power of [place] Operator No 06/20/16 7:41pm Organ Donor No 06/20/16 7:41pm Resuscitation Status Full Code 06/18/17 8:46am Directive Response Recor ded Date/Time Advance Directives No 7:23pm Health Care Power of [place] Operator No 08/08/17 7:23pm Organ Donor No 08/08/17 7:23pm Resuscitation Status Full Code 08/08/17 7:23pm Directive Response Recor ded Date/Time Advance Directives No 8:00pm Health Care Power of [place] Operator No 11/28/17 8:00pm Organ Donor No 11/28/17 8:00pm Resuscitation Status Full Code 11/28/17 8:00pm Directive Response Recor ded Date/Time Advance Directives No 7:20pm Health Care Power of [place] Operator No 06/25/18 7:20pm Organ Donor Yes 06/25/18 7:20pm Resuscitation Status Full Code 06/25/18 7:20pm Directive Response Recor ded Date/Time Advance Directives No 8:45am Health Care Power of [place] Operator No 12/22/18 8:45am Organ Donor Yes 12/22/18 8:45am Resuscitation Status Full Code 12/22/18 8:45am Directive Response Recor ded Date/Time Advance Directives No 6:47pm Health Care Power of [place] Operator No 03/19/19 6:47pm Organ Donor Yes 03/19/19 6:47pm Resuscitation Status Full Code 03/19/19 6:47pm Discharge Instructions No hospital discharge instructions.No hospital discharge instructions. Patient Instructions Physician Instructions New, Converted or Re-Newed RX: RX on Chart Additional Follow Up: Yes Activity: Activity as Tolerated Driving Instructions: You May Drive NO SMOKING: NO SMOKING Nothing Inside Vagina: No Douching, No [place], No Tampons Discharge Diet: No Restrictions Symptoms to Report to : Swelling Increased, Bleeding Excessive, Fever Over 101 Degrees F, Vaginal Bleeding Increase, Vaginal Discharge Foul For Any Problems or Questions: Contact Your Physician Bathing Instructions: Shower No hospital discharge instructions.No hospital discharge instruction information available.No hospital discharge instruction information available.No hospital discharge instruction information available.No hospital discharge instruction information available.No hospital discharge instruction information available.No hospital discharge instruction information available. Chief Complaint and Reason for Visit Chief Complaint Skin/Wound Problems Reason for Visit Abscess Chief Complaint Head/Cervical Proble ms Reason for Visit Migraine Additional Source Comments This clinical document has been generated using [employer] software that has been certified by the Office of the National Coordinator for Health Information Technology (ONC 15.99.04.3023.Diam.31.00.0.968490) and the National Committee for Interventional Sale Consultant (NCQA, as an eMeasure certified technology). FOR RECORDS PERTAINING TO PATIENTS WHO ARE OR HAVE BEEN ENROLLED IN A CHEMICAL D EPENDENCY/SUBSTANCE ABUSE PROGRAM, SOME INFORMATION MAY BE OMITTED. This clinica l summary was aggregated from multiple sources. Caution should be exercised in using it in the provision of clinical care. This summary normalizes information from multiple sources, and as a consequence, information in this document may ma terially change the coding, format and clinical context of patient data. In catia tion, data may be omitted in some cases. CLINICAL DECISIONS SHOULD BE BASED ON T HE PRIMARY CLINICAL RECORDS. [employer]. provides no warranty or guara ntee of the accuracy or completeness of information in this document.The followi information is based on time limited clinical information UNRECOGNIZED CONTENT PROVIDED BELOW FOR UNRECOGNIZED SECTION MEDICAL (GENERAL) HISTORY Type Description Date Medical History thyroid Surgical History DNC 200 9 Surgical History Tonsils Removed 2005 Surgical History Thyroid Ablation Surgical History Thyroid Ablation Hospitalization History Child Hospitalization History kidney stones Type Description Date Medical History thyroid Medical History Due January 11, 2018 Surgical History DNC 200 9 Surgical History Tonsils Removed 2005 Surgical History Thyroid Ablation Surgical History Thyroid Ablation Hospitalization History Child Hospitalization History kidney stones Type Description Date Medical History thyroid Medical History Due January 11, 2018 Surgical History DNC 200 9 Surgical History Tonsils Removed 2005 Surgical History Thyroid Ablation Surgical History Thyroid Ablation Surgical History tubes removed 03/21/2018 Hospitalization History Child Hospitalization History kidney stones UNRECOGNIZED CONTENT PROVIDED BELOW FOR UNRECOGNIZED SECTION REASON FOR VISIT defer lab/med orderNew provider visit-YUKO patterson pt want to get her thyroid te st, and she also have ingrown toenail on both foottoenail clipping-CHAVEZ pattersonJuliet, pt is complaining of her migraines are getting worse, the butal/acetammn that sh e is on for her migraines isnt working toenail clipping f/u-CHAVEZ pattersonA, pt has some concerns about her liver after being on some medication [id number]
--- OUTSIDE RECORDS SUMMARY | 2020-04-04 00:22 | XMS REPORT ---
Author Author Anette Fernandez Doctor Organization [facility] Address Unknown Phone Unavailable Care Team Providers Care Process Control Supervisor Name Role Phone Migration, Doctor Unavailable Unavailable PROBLEMS Type Condition ICD9-CM Code IJS79-GI Code Onset Dates Condition S tatus SNOMED Code Problem Obesity (BMI 30.0-34.9) E66.9 Active [id number] Problem Hypothyroidism (acquired) E03.9 Acti ve 721710511 Problem Postablative hypothyroidism E89.0 Ac tive 737875661 Problem History of Graves' disease Z86.39 Act sergio 837272232731484 Problem Intractable migraine with aura without status migrainosus G43.119 Active 660624266 ALLERGIES No Information ENCOUNTERS Encounter Location Date Diagnosis [place] [address] [address] Apr, [place] [address] [address] Nov, [place] [address] [address] Nov, Obesity (BMI 30.0-34.9) E66. 9 [place] [address] [place] [id number] [address] [place] [address] Nov, Obesity (BMI 30.0-34.9) E66. 9 [place] [address] [place] [id number] [address] [place] [phone] Nov, [place] [address] [address] Oct, Obesity (BMI 30.0-34.9) E66. 9 ; Hypothyroidism (acquired) E03.9 ; Infection, nail, ingrowing L60.0 and Postablative hypothyroidism E89.0 [place] [address] [address] [place] [id number] [place] [phone] Oct, [facility] [address] [address] [facility] [id number] [address] [place] [phone] Sep, Obesity (BMI 30.0-34.9) E66. 9 ; Ingrown toenail of right foot L60.0 and Onychomycosis B35.1 [facility] [address] [facility] [id number] [address] Sep, Ingrown toenail of right donna t L60.0 ; Intractable migraine with aura without status migrainosus G43.119 and Onychomycosis B35.1 [facility] [address] [place] [id number] [place] [address] Sep, Postablative hypothyroidism E89.0 [facility] [address] [address] Aug, Postablative hypothyroidism E89.0 ; History of Graves' disease Z86.39 and Ingrown toenail L60.0 [facility] [address] [place] [id number] [address] [place] [phone] Jul, Encounter for immunization Z 23 [facility] [id number] [place] [phone] Nov, [facility] [address] [place] [id number] [place] [phone] Nov, Encounter for dental examina tion Z01.20 [facility] [address] [place] [id number] [address] [place] [phone] Sep, Encounter for immunization Z 23 [facility] [address] [place] [id number] [address] [place] [phone] Apr, Postablative hypothyroidism E89.0 [facility] [address] [facility] [address] [facility] [id number] [address] [place] [phone] Apr, [facility] [address] [place] [id number] [place] [address] [phone] Apr, Dental examination Z01.20 [facility] [address] [id number] [address] [place] [phone] March, Hypothyroidism, unspecified type E03.9 [facility] [address] [id number] [address] [place] [phone] March, Hypothyroidism, unspecified type E03.9 [facility] [address] [id number] [address] [place] [phone] Feb, [facility] [address] [id number] [address] [place] [phone] Feb, [facility] [address] [id number] [address] [place] [phone] Dec, [facility] [address] [id number] [address] [place] [phone] Nov, [facility] [address] [id number] [address] [place] [phone] Oct, [facility] [address] [id number] [address] [place] [phone] Oct, [facility] [address] [id number] [address] [place] [phone] Feb, [facility] [address] [id number] [address] [place] [phone] Feb, [facility] [address] [id number] [address] [place] [phone] Feb, [facility] [address] [id number] [address] [place] [phone] Dec, [facility] [address] [id number] [address] [place] [phone] Nov, [facility] [address] [id number] [address] [place] [phone] Nov, [facility] [address] [id number] [address] [place] [phone] Nov, [facility] [address] [address] [facility] [id number] [address] [place] [phone] Oct, [facility] [address] [address] [facility] [id number] [address] [place] [phone] Oct, [facility] [address] [address] [facility] [id number] [address] [place] [phone] Sep, IMMUNIZATIONS No Known Immunizations SOCIAL HISTORY Never Assessed REASON FOR VISIT EMR-[facility] PLAN OF CARE VITAL SIGNS MEDICATIONS Unknown [...]
--- OUTSIDE RECORDS SUMMARY | 2020-04-04 00:22 | XMS REPORT ---
Author Author Anette LESTER Organization [facility] Address [address] [place] [address] Care Team Providers Care Assistant Professor Of History Name Role Phone RED LESTER Unavailable PROBLEMS Type Condition ICD9-CM Code POU77-BI Code Onset Dates Condition S tatus SNOMED Code Problem Obesity (BMI 30.0-34.9) E66.9 Active [id number] Problem Intractable migraine with aura without status migrainosus G43.119 Active 221375621 Problem History of Graves' disease Z86.39 Act sergio 544915103219702 Problem Postablative hypothyroidism E89.0 Ac tive 310992688 ALLERGIES Substance Reaction Event Type Date Status Pertussis Injection Unknown Non Drug Allergy Sep, Acti ve ENCOUNTERS Encounter Location Date Diagnosis [id number] [id number] [place] [phone] Oct, [place] [address] [address] Oct, [place] [address] [address] [place] [id number] [address] [place] [phone] Sep, Obesity (BMI 30.0-34.9) E66. 9 ; Ingrown toenail of right foot L60.0 and Onychomycosis B35.1 [facility] [address] [place] [id number] [address] [place] [phone] Sep, Ingrown toenail of right donna t L60.0 ; Intractable migraine with aura without status migrainosus G43.119 and Onychomycosis B35.1 [facility] [address] [place] [id number] [address] [place] [phone] Sep, Postablative hypothyroidism E89.0 [facility] [address] [place] [id number] [address] [place] [phone] Aug, Postablative hypothyroidism E89.0 ; History of Graves' disease Z86.39 and Ingrown toenail L60.0 [facility] [address] [id number] [address] [place] [phone] Jul, Encounter for immunization Z 23 [facility] [address] [id number] [address] [place] [phone] Nov, [facility] [address] [id number] [address] [place] [address] [phone] Nov, Encounter for dental examina tion Z01.20 [facility] [address] [id number] [address] [place] [phone] Sep, Encounter for immunization Z 23 [facility] [address] [id number] [address] [place] [phone] Apr, Postablative hypothyroidism E89.0 [facility] [address] [id number] [address] [place] [phone] Apr, [facility] [address] [id number] [address] [place] [address] [phone] Apr, Dental examination Z01.20 [facility] [address] [id number] [address] [place] [phone] March, Hypothyroidism, unspecified type E03.9 [facility] [address] [id number] [address] [place] [phone] March, Hypothyroidism, unspecified type E03.9 [facility] [address] [id number] [address] [place] [phone] Feb, [facility] [address] [id number] [address] [place] [phone] Feb, [facility] [address] [id number] [address] [place] [phone] Dec, [facility] [address] [id number] [address] [place] [phone] Nov, [facility] [address] [id number] [address] [place] [phone] Oct, [facility] [address] [id number] [address] [place] [phone] Oct, [facility] [address] [id number] [address] [place] [phone] Feb, [facility] [address] [id number] [address] [place] [phone] Feb, [facility] [address] [id number] [address] [place] [phone] Feb, [facility] [address] [id number] [address] [place] [phone] Dec, [facility] [address] [id number] [address] [place] [phone] Nov, [facility] [address] [id number] [address] [place] [phone] Nov, [facility] [address] [id number] [address] [place] [phone] Nov, [facility] [address] [id number] [address] [place] [phone] Oct, [facility] [address] [id number] [address] [place] [phone] Oct, [facility] [address] [id number] [address] [place] [phone] Sep, IMMUNIZATIONS No Known Immunizations SOCIAL HISTORY Never Assessed REASON FOR VISIT toenail clipping f/u-YUKO patterson, pt has some concerns about her liver after be ing on some medication PLAN OF CARE Activity Details Follow Up 4 Weeks Reason: VITAL SIGNS Height 67 in 2018-10-09 Weight 207.5 lbs 2018-10-09 Temperature 97.8 degrees Fahrenheit 2018-10-09 Heart Rate 76 bpm 2018-10-09 Respiratory Rate 18 2018-10-09 Oximetry 98 % 2018-10-09 BMI 32.5 kg/m2 2018-10-09 Blood pressure systolic 110 mmHg 2018-10-09 Blood pressure diastolic 88 mmHg 2018-10-09 MEDICATIONS Medication Instructions Dosage Frequency Start Date End Date Duration S mari Phentermine HCl 30 MG Orally Once a day 1 capsule 24h Sep, 28 days Active Lamisil 250 MG Orally Once a day 1 tablet 24h Sep,Dec, 30 days Active Levothyroxine Sodium 137 MCG Orally once daily in the am 1 t ablet on an empty stomach in the morning Apr, 30 days Activ e Imitrex 50 mg Orally as directed 1 tablet po X 1 march repeat do se X 1 after 2hr Sep, 30 days Active RESULTS Name Result Date Reference Range LIVER PANEL (LFT) 2018-10-09 PROTEIN, TOTAL 7.0 6.1-8.1 ALBUMIN 4.5 3.6-5.1 GLOBULIN 2.5 1.9-3.7 ALBUMIN/GLOBULIN RATIO 1.8 1.0-2.5 BILIRUBIN, TOTAL 0.4 0.2-1.2 BILIRUBIN, DIRECT 0.1 < OR = 0.2 BILIRUBIN, INDIRECT 0.3 0.2-1.2 ALKALINE PHOSPHATASE 56 33-115 AST 11 10-30 ALT 7 6-29 PROCEDURES Procedure Date Ordered Result Body Site LAB NOT BILLED BY [facility] Oct 09, 2018 VENIPUNCT, ROUTINE* Oct 09, 2018 INSTRUCTIONS MEDICATIONS ADMINISTERED No Known Medications MEDICAL (GENERAL) HISTORY Type Description Date Medical History thyroid Medical History Due January 11, 2018 Surgical History DNC 2008 Surgical History Tonsils Removed 2005 Surgical History Thyroid Ablation Surgical History Thyroid Ablation Surgical History tubes removed 03/21/2018 Hospitalization History Child Hospitalization History kidney stones
--- OUTSIDE RECORDS SUMMARY | 2020-04-04 00:22 | XMS REPORT ---
Author Author Anette LESTER Organization [facility] Address [address] [place] [address] Care Team Providers Care Vp Delivery Name Role Phone RED LESTER Unavailable PROBLEMS Type Condition ICD9-CM Code GCO04-VY Code Onset Dates Condition S tatus SNOMED Code Problem Obesity (BMI 30.0-34.9) E66.9 Active 504163228071599 Problem Intractable migraine with aura without status migrainosus G43.119 Active 791229700 Problem History of Graves' disease Z86.39 Act sergio 296719474548285 Problem Postablative hypothyroidism E89.0 Ac tive 224972512 ALLERGIES No Information ENCOUNTERS Encounter Location Date Diagnosis [place] [address] [phone] Oct, [place] [address] [address] Oct, [place] [address] [address] Sep, Obesity (BMI 30.0-34.9) E66. 9 ; Ingrown toenail of right foot L60.0 and Onychomycosis B35.1 [facility] [address] [place] [id number] [address] [place] [phone] Sep, Ingrown toenail of right donna t L60.0 ; Intractable migraine with aura without status migrainosus G43.119 and Onychomycosis B35.1 [place] [address] [place] [id number] [address] [place] [phone] Sep, Postablative hypothyroidism E89.0 [place] [address] [place] [id number] [address] [place] [phone] Aug, Postablative hypothyroidism E89.0 ; History of Graves' disease Z86.39 and Ingrown toenail L60.0 [facility] [address] [id number] [address] [place] [phone] Jul, Encounter for immunization Z 23 [facility] [address] [id number] [address] [place] [address] [phone] Nov, [facility] [address] [id number] [address] [place] [address] [phone] Nov, Encounter for dental examina tion Z01.20 [facility] [address] [id number] [address] [place] [phone] Sep, Encounter for immunization Z 23 [facility] [address] [id number] [address] [place] [phone] Apr, Postablative hypothyroidism E89.0 [facility] [address] [id number] [address] [place] [phone] Apr, [facility] [address] [id number] [address] [place] [address] [phone] Apr, Dental examination Z01.20 [facility] [address] [id number] [address] [place] [phone] March, Hypothyroidism, unspecified type E03.9 [facility] [address] [id number] [address] [place] [phone] March, Hypothyroidism, unspecified type E03.9 [facility] [address] [id number] [address] [place] [phone] Feb, [facility] [address] [id number] [address] [place] [phone] Feb, [facility] [address] [facility] [id number] [address] [place] [phone] Dec, [facility] [address] [facility] [id number] [address] [place] [phone] Nov, [facility] [address] [id number] [address] [place] [phone] Oct, [facility] [address] [id number] [address] [place] [phone] Oct, [facility] [address] [id number] [address] [place] [phone] Feb, [facility] [address] [id number] [address] [place] [phone] Feb, [facility] [address] [id number] [address] [place] [phone] Feb, [facility] [address] [id number] [address] [place] [phone] Dec, [facility] [address] [id number] [address] [place] [phone] Nov, [facility] [address] [id number] [address] [place] [phone] Nov, [facility] [address] [id number] [address] [place] [phone] Nov, [facility] [address] [id number] [address] [place] [phone] Oct, [facility] [address] [id number] [address] [place] [phone] Oct, [facility] [address] [id number] [address] [place] [phone] Sep, IMMUNIZATIONS No Known Immunizations SOCIAL HISTORY Never Assessed REASON FOR VISIT Lab results PLAN OF CARE VITAL SIGNS MEDICATIONS Unknown Medications RESULTS No Results PROCEDURES No Known procedures INSTRUCTIONS MEDICATIONS ADMINISTERED No Known Medications MEDICAL (GENERAL) HISTORY Type Description Date Medical History thyroid Medical History Due January 11, 2018 Surgical History DNC 2008 Surgical History Tonsils Removed 2005 Surgical History Thyroid Ablation -2013 Surgical History Thyroid Ablation Surgical History tubes removed 03/21/2018 Hospitalization History Child Hospitalization History kidney stones
--- OUTSIDE RECORDS SUMMARY | 2020-04-04 00:22 | XMS REPORT ---
Author Author Anette LESTER Organization [facility] Address [address] [place] [address] Care Team Providers Care Brooch And Bracelet Maker Name Role Phone RED LESTER Unavailable PROBLEMS Type Condition ICD9-CM Code [id number] Code Onset Dates Condition S tatus SNOMED Code Problem Intractable migraine with aura without status migrainosus G43.119 Active 441036339 Problem History of Graves' disease Z86.39 Act sergio [id number] Problem Postablative hypothyroidism E89.0 Ac tive 508112501 ALLERGIES Substance Reaction Event Type Date Status Pertussis Injection Unknown Non Drug Allergy Sep, Acti ve ENCOUNTERS Encounter Location Date Diagnosis [facility] [address] [place] [id number] [address] [place] [phone] Sep, [facility] [address] [place] [id number] [address] [place] [phone] Sep, Ingrown toenail of right donna t L60.0 ; Intractable migraine with aura without status migrainosus G43.119 and Onychomycosis B35.1 [facility] [address] [place] [id number] [address] [place] [phone] Sep, Postablative hypothyroidism E89.0 [facility] [address] [place] [id number] [address] [place] [phone] Aug, Postablative hypothyroidism E89.0 ; History of Graves' disease Z86.39 and Ingrown toenail L60.0 [facility] [address] [facility] [id number] [address] [place] [phone] Jul, Encounter for immunization Z 23 [facility] [address] [facility] [id number] [address] [place] [address] [phone] Nov, [facility] [address] [facility] [id number] [address] [place] [address] [phone] Nov, Encounter for dental examina tion Z01.20 [facility] [address] [id number] [address] [place] [phone] Sep, Encounter for immunization Z 23 [facility] [address] [id number] [address] [place] [phone] 27 Apr, 2017 Postablative hypothyroidism E89.0 [facility] [address] [id number] [address] [place] [phone] 14 Apr, 2017 [facility] [address] [id number] [address] [place] [address] [phone] Apr, Dental examination Z01.20 [facility] [address] [id number] [address] [place] [phone] March, Hypothyroidism, unspecified type E03.9 [facility] [address] [id number] [address] [place] [phone] March, Hypothyroidism, unspecified type E03.9 [facility] [address] [id number] [address] [place] [phone] Feb, [facility] [address] [id number] [address] [place] [phone] Feb, [facility] [address] [id number] [address] [place] [phone] Dec, [facility] [address] [id number] [address] [place] [phone] Nov, [facility] [address] [id number] [address] [place] [phone] Oct, [facility] [address] [facility] [id number] [address] [place] [phone] Oct, [facility] [address] [id number] [address] [place] [phone] Feb, [facility] [address] [id number] [address] [place] [phone] Feb, [facility] [address] [id number] [address] [place] [phone] Feb, [facility] [address] [id number] [address] [place] [phone] Dec, [facility] [address] [facility] [id number] [address] [place] [phone] Nov, [facility] [address] [facility] [id number] [address] [place] [phone] Nov, [facility] [address] [facility] [id number] [address] [place] [phone] Nov, [facility] [address] [facility] [id number] [address] [place] [phone] Oct, [facility] [address] [facility] [id number] [address] [place] [phone] Oct, [facility] [address] [facility] [id number] [address] [place] [phone] Sep, IMMUNIZATIONS No Known Immunizations SOCIAL HISTORY Never Assessed REASON FOR VISIT toenail clipping-YUKO patterson, pt is complaining of her migraines are getting wor se, the butal/acetammn that she is on for her migraines isnt working PLAN OF CARE Activity Details Follow Up 1 month check ALT Reason: Future/Pending Procedure NAIL REMOVAL PERMANENT (PART IAL OR COMPLETE) VITAL SIGNS Height 67 in 2018-09-18 Weight 203.3 lbs 2018-09-18 Temperature 97.7 degrees Fahrenheit 2018-09-18 Heart Rate 91 bpm 2018-09-18 Respiratory Rate 18 2018-09-18 Oximetry on room air:98 % 2018-09-18 BMI 31.84 kg/m2 2018-09-18 Blood pressure systolic 120 mmHg 2018-09-18 Blood pressure diastolic 80 mmHg 2018-09-18 MEDICATIONS Medication Instructions Dosage Frequency Start Date End Date Duration S geneus Levothyroxine Sodium 137 MCG Orally once daily in the am 1 t ablet on an empty stomach in the morning Apr, 30 days Activ e Imitrex 50 mg Orally as directed 1 tablet po X 1 march repeat do se X 1 after 2hr Sep, 30 days Active Lamisil 250 MG Orally Once a day 1 tablet 24h Sep,Dec, 30 days Active RESULTS No Results PROCEDURES Procedure Date Ordered Result Body Site REMOVAL OF NAIL BED Sep 18, 2018 INSTRUCTIONS MEDICATIONS ADMINISTERED No Known Medications MEDICAL (GENERAL) HISTORY Type Description Date Medical History thyroid Medical History Due January 11, 2018 Surgical History DNC 2008 Surgical History Tonsils Removed 2005 Surgical History Thyroid Ablation Surgical History Thyroid Ablation Surgical History tubes removed 03/21/2018 Hospitalization History Child Hospitalization History kidney stones
--- OUTSIDE RECORDS SUMMARY | 2020-04-04 00:22 | XMS REPORT ---
Author Author Anette HENLEY [facility] Address [address] [place] [address] Care Team Providers Care Nail Welter Name Role Phone AMOS HENLEY Unavailable PROBLEMS ALLERGIES No Information ENCOUNTERS IMMUNIZATIONS SOCIAL HISTORY No smoking Hx information available REASON FOR VISIT PLAN OF CARE VITAL SIGNS MEDICATIONS Unknown Medications RESULTS No Results PROCEDURES INSTRUCTIONS MEDICATIONS ADMINISTERED No Known Medications MEDICAL (GENERAL) HISTORY
--- OUTSIDE RECORDS SUMMARY | 2020-04-04 00:22 | XMS REPORT ---
Author Author Anette Fernandez Doctor Organization [facility] Address Unknown Phone Unavailable Care Team Providers Care Sample Grader Name Role Phone Migration, Doctor Unavailable Unavailable PROBLEMS Type Condition ICD9-CM Code [id number] Code Onset Dates Condition S tatus SNOMED Code Problem Obesity (BMI 30.0-34.9) E66.9 Active [id number] Problem Hypothyroidism (acquired) E03.9 Acti ve 142146822 Problem Postablative hypothyroidism E89.0 Ac tive 661335796 Problem History of Graves' disease Z86.39 Act sergio [id number] Problem Intractable migraine with aura without status migrainosus G43.119 Active 821120449 ALLERGIES Substance Reaction Event Type Date Status Pertussis Injection Unknown Non Drug Allergy Feb, Acti ve ENCOUNTERS Encounter Location Date Diagnosis [place] [id number] [phone] May, [place] [address] [address] Apr, Hypothyroidism, unspecified type E03.9 [facility] [address] [place] [id number] [address] [place] [phone] Apr, Hypothyroidism, unspecified type E03.9 [facility] [address] [place] [id number] [address] [place] [phone] Nov, [facility] [address] [id number] [address] [place] [phone] Nov, Obesity (BMI 30.0-34.9) E66. 9 [facility] [address] [place] [id number] [address] [place] [phone] Nov, Obesity (BMI 30.0-34.9) E66. 9 [facility] [address] [place] [id number] [address] [place] [phone] Nov, [facility] [address] [place] [id number] [address] [place] [phone] Oct, Obesity (BMI 30.0-34.9) E66. 9 ; Hypothyroidism (acquired) E03.9 ; Infection, nail, ingrowing L60.0 and Postablative hypothyroidism E89.0 [facility] [address] [address] Oct, [facility] [address] [place] [place] [id number] [place] [phone] Sep, Obesity (BMI 30.0-34.9) E66. 9 ; Ingrown toenail of right foot L60.0 and Onychomycosis B35.1 [facility] [address] [place] [id number] [place] [phone] Sep, Ingrown toenail of right donna t L60.0 ; Intractable migraine with aura without status migrainosus G43.119 and Onychomycosis B35.1 [facility] [address] [place] [id number] [address] [place] [phone] Sep, Postablative hypothyroidism E89.0 [facility] [address] [place] [id number] [address] [place] [phone] Aug, Postablative hypothyroidism E89.0 ; History of Graves' disease Z86.39 and Ingrown toenail L60.0 [facility] [address] [place] [id number] [address] [place] [phone] Jul, Encounter for immunization Z 23 [facility] [address] [facility] [id number] [address] [place] [address] [phone] Nov, [facility] [address] [place] [id number] [address] [place] [address] [phone] Nov, Encounter for dental examina tion Z01.20 [facility] [address] [facility] [id number] [address] [place] [phone] Sep, Encounter for immunization Z 23 [facility] [address] [id number] [address] [place] [phone] 27 Apr, 2017 Postablative hypothyroidism E89.0 [facility] [address] [id number] [address] [place] [phone] 14 Apr, 2017 [facility] [address] [id number] [address] [place] [address] [id number] 13 Apr, 2017 Dental examination Z01.20 [facility] [address] [id number] [address] [place] [phone] March, Hypothyroidism, unspecified type E03.9 [facility] [address] [id number] [address] [place] [phone] March, Hypothyroidism, unspecified type E03.9 [facility] [address] [id number] [address] [place] [phone] Feb, [facility] [address] [id number] [address] [place] [phone] Feb, [facility] [address] [id number] [address] [place] [phone] Dec, [facility] [address] [id number] [address] [place] [phone] Nov, [facility] [address] [id number] [address] [place] [phone] Oct, [facility] [address] [id number] [address] [place] [phone] Oct, [facility] [address] [id number] [address] [place] [phone] Feb, [facility] [address] [id number] [address] [place] [phone] Feb, [facility] [address] [id number] [address] [place] [phone] 05 Feb, 2012 [facility] [address] [id number] [address] [place] [phone] Dec, [facility] [address] [facility] [id number] [address] [place] [phone] Nov, [facility] [address] [facility] [id number] [address] [place] [phone] Nov, [facility] [address] [facility] [id number] [address] [place] [phone] Nov, [facility] [address] [facility] [id number] [address] [place] [phone] Oct, [facility] [address] [facility] [id number] [address] [place] [phone] Oct, [facility] [address] [facility] [id number] [address] [place] [phone] Sep, IMMUNIZATIONS No Known Immunizations SOCIAL HISTORY Never Assessed REASON FOR VISIT [facility] PLAN OF CARE VITAL SIGNS MEDICATIONS Unknown [...]
--- OUTSIDE RECORDS SUMMARY | 2020-04-04 00:22 | XMS REPORT ---
Author Author Anette LESTER Organization [facility] Address [address] [place] [address] Care Team Providers Care Screw Machine Set Up Operator Name Role Phone RED LESTER Unavailable PROBLEMS Type Condition ICD9-CM Code [id number] Code Onset Dates Condition S tatus SNOMED Code Problem History of Graves' disease Z86.39 Act sergio [id number] Problem Postablative hypothyroidism E89.0 Ac tive 676815562 ALLERGIES Substance Reaction Event Type Date Status Pertussis Injection Unknown Non Drug Allergy Aug, Acti ve ENCOUNTERS Encounter Location Date Diagnosis [facility] [address] [address] Sep, [facility] [address] [address] Sep, Postablative hypothyroidism E89.0 [facility] [address] [address] Aug, Postablative hypothyroidism E89.0 ; History of Graves' disease Z86.39 and Ingrown toenail L60.0 [facility] [address] [place] [id number] [address] [place] [phone] Jul, Encounter for immunization Z 23 [facility] [address] [facility] [id number] [address] [place] [address] [phone] Nov, [facility] [address] [place] [id number] [address] [place] [address] [phone] Nov, Encounter for dental examina tion Z01.20 [facility] [address] [place] [id number] [address] [place] [phone] Sep, Encounter for immunization Z 23 [facility] [address] [place] [id number] [address] [place] [phone] 27 Apr, 2017 Postablative hypothyroidism E89.0 [facility] [address] [id number] [address] [place] [phone] 14 Apr, 2017 [facility] [address] [id number] [address] [place] [address] [id number] 13 Apr, [address] [facility] [address] [id number] [address] [place] [phone] March, Hypothyroidism, unspecified type E03.9 [facility] [address] [id number] [address] [place] [phone] March, Hypothyroidism, unspecified type E03.9 [facility] [address] [id number] [address] [place] [phone] Feb, [facility] [address] [id number] [address] [place] [phone] Feb, [facility] [address] [id number] [address] [place] [phone] Dec, [facility] [address] [id number] [address] [place] [phone] Nov, [facility] [address] [id number] [address] [place] [phone] Oct, [facility] [address] [id number] [address] [place] [phone] Oct, [facility] [address] [id number] [address] [place] [phone] Feb, [facility] [address] [id number] [address] [place] [phone] Feb, [facility] [address] [id number] [address] [place] [phone] 05 Feb, 2012 [facility] [address] [id number] [address] [place] [phone] Dec, [facility] [address] [id number] [address] [place] [phone] Nov, [facility] [address] [id number] [address] [place] [phone] Nov, [facility] [address] [id number] [address] [place] [phone] Nov, [facility] [address] [id number] [address] [place] [phone] Oct, [facility] [address] [id number] [address] [place] [phone] Oct, [facility] [address] [facility] [id number] [address] [place] [phone] Sep, IMMUNIZATIONS No Known Immunizations SOCIAL HISTORY Never Assessed REASON FOR VISIT New provider visit-YUKO patterson, pt want to get her thyroid test, and she also bowling ve ingrown toenail on both foot PLAN OF CARE Activity Details Follow Up pending lab Reason:schedule 40min procedure visit for toenail removal at her convenience VITAL SIGNS Height 67 in 2018-09-10 Weight 200.7 lbs 2018-09-10 Temperature 98.1 degrees Fahrenheit 2018-09-10 Heart Rate 75 bpm 2018-09-10 Respiratory Rate 18 2018-09-10 Oximetry on room air:96 % 2018-09-10 BMI 31.43 kg/m2 2018-09-10 Blood pressure systolic 110 mmHg 2018-09-10 Blood pressure diastolic 86 mmHg 2018-09-10 MEDICATIONS Medication Instructions Dosage Frequency Start Date End Date Duration S mari Levothyroxine Sodium 125 mcg Orally once daily in the am 1 t ablet on an empty stomach in the morning Apr, Activ e RESULTS No Results PROCEDURES Procedure Date Ordered Result Body Site LAB NOT BILLED BY [facility] Sep 10, 2018 CLAUDIA TILLMAN* Sep 10, 2018 INSTRUCTIONS MEDICATIONS ADMINISTERED No Known Medications MEDICAL (GENERAL) HISTORY Type Description Date Medical History thyroid Medical History Due January 11, 2018 Surgical History DNC 2008 Surgical History Tonsils Removed 2005 Surgical History Thyroid Ablation -2013 Surgical History Thyroid Ablation Surgical History tubes removed 03/21/2018 Hospitalization History Child Hospitalization History kidney stones
--- OUTSIDE RECORDS SUMMARY | 2020-04-04 00:22 | XMS REPORT ---
Author Author Anette LESTER Organization [facility] Address [address] [place] [address] Care Team Providers Care Passenger Agent Name Role Phone RED LESTER Unavailable PROBLEMS Type Condition ICD9-CM Code [id number] Code Onset Dates Condition S tatus SNOMED Code Problem History of Graves' disease Z86.39 Act sergio [id number] Problem Postablative hypothyroidism E89.0 Ac tive 918342822 ALLERGIES No Information ENCOUNTERS Encounter Location Date Diagnosis [facility] [address] [address] Sep, [facility] [address] [address] Sep, Postablative hypothyroidism E89.0 [facility] [address] [place] [id number] [place] [address] Aug, Postablative hypothyroidism E89.0 ; History of Graves' disease Z86.39 and Ingrown toenail L60.0 [facility] [address] [place] [id number] [address] [place] [phone] Jul, Encounter for immunization Z 23 [facility] [address] [facility] [id number] [address] [place] [address] [phone] Nov, [facility] [address] [facility] [id number] [address] [place] [address] [id number] Nov, Encounter for dental examina tion Z01.20 [facility] [address] [facility] [id number] [address] [place] [phone] Sep, Encounter for immunization Z 23 [facility] [address] [facility] [id number] [address] [place] [phone] Apr, Postablative hypothyroidism E89.0 [facility] [address] [id number] [address] [place] [phone] 14 Apr, 2017 [facility] [address] [id number] [address] [place] [address] [phone] Apr, Dental examination Z01.20 [facility] [address] [id number] [address] [place] [phone] March, Hypothyroidism, unspecified type E03.9 [facility] [address] [id number] [address] [place] [phone] March, Hypothyroidism, unspecified type E03.9 [facility] [address] [id number] [address] [place] [phone] Feb, [facility] [address] [id number] [address] [place] [phone] Feb, [facility] [address] [id number] [address] [place] [phone] Dec, [facility] [address] [id number] [address] [place] [phone] Nov, [facility] [address] [id number] [address] [place] [phone] Oct, [facility] [address] [id number] [address] [place] [phone] Oct, [facility] [address] [id number] [address] [place] [phone] Feb, [facility] [address] [id number] [address] [place] [phone] Feb, [facility] [address] [id number] [address] [place] [phone] 05 Feb, 2012 [facility] [address] [id number] [address] [place] [phone] Dec, [facility] [address] [id number] [address] [place] [phone] Nov, [facility] [address] [facility] [id number] [address] [place] [phone] Nov, [facility] [address] [facility] [id number] [address] [place] [phone] Nov, [facility] [address] [facility] [id number] [address] [place] [id number] Oct, [facility] [address] [facility] [id number] [address] [place] [id number] Oct, [facility] [address] [facility] [id number] [address] [place] [phone] Sep, IMMUNIZATIONS No Known Immunizations SOCIAL HISTORY Never Assessed REASON FOR VISIT defer lab/med order PLAN OF CARE VITAL SIGNS MEDICATIONS Medication Instructions Dosage Frequency Start Date End Date Duration S tatus Levothyroxine Sodium 137 MCG Orally once daily in the am 1 t ablet on an empty stomach in the morning Apr, 30 days Activ e RESULTS No Results PROCEDURES No Known procedures [...]
--- OUTSIDE RECORDS SUMMARY | 2020-04-04 00:24 | XMS REPORT | Continuity of Care Document ---
Demographics Preferred Language Unknown Marital Status Unknown Druze Affiliation Unknown Race Unknown Ethnic Group Unknown Author Organization Unknown Address Unknown Phone Unavailable Allergies Active Description Code Type Severity Reaction Onset Reported/Identified Relationship to Patient Clinical Status Yes NO KNOWN DRUG ALLERGIES UNKNOWN NO KNOWN DRUG ALLERG Yes NO KNOWN DRUG ALLERGIES UNKNOWN UNKNOWN Yes pertussis injection OA 11/20/2011 Yes alprazolam [id number] Drug Allerg y Unknown N/A 11/28/2017 Yes pertussis vaccine,adsorbed [id number] Drug Allergy Unknown N/A 11/28/2017 Medications Medication Packaging Start Date St op Date Route Dosage Sig LACTATED RINGERS 1000CC IV BAG INJ ml 03/21/2018 03/28/2018 CONTINUOUSEVERY 0 Hour LEVOTHYROXINE TAB 125 MCG (SYNTHROID) Dose(s) 03/21/2018 03/27/2018 Daily&0900 CEFAZOLIN VIAL INJ 1 GM (ANCEF) GM 03/21/2018 03/21/2018 ONCE&0900 FENTANYL INJ 100 MCG/2CC VIAL MCG 03/21/2018 03/21/2018 ONCE&1008 OXYCODONE 5MG/APAP 325MG TAB(PERCOCET-5) TAB 03/21/2018 03/21/2018 ONCE&1034 FENTANYL INJ 100 MCG/2CC VIAL MCG 03/21/2018 03/21/2018 ONCE&1034 ONDANSETRON VIAL INJ 4 MG/2CC (ZOFRAN 2CC VIAL) MG 10/22/2019 10/22/2019 PRN ONCE FENTANYL INJ 100 MCG/2CC VIAL MCG 10/22/2019 10/22/2019 ONCE&0821 NORMAL SALINE 1000CC IV BAG INJ 0.9 % (NS 1000CC IV BAG) ml 10/22/2019 10/22/2019 ONCE&0822 AMOX-CLAV 875/125 TAB 875 MG-125MG (AUGMEN TIN) TAB 10/22/2019 10/22/2019 ONCE&1059 KETOROLAC VIAL INJ 30 MG/CC (TORADOL VIAL) MG 10/22/2019 10/22/2019 ONCE&1059 Problems Date Dx Coded Attending Type Code Diagnosis Diagnosed By 09/27/2010 CHARLEEN FISHER APRN 296.22 MO DEPRESSIVE SINGLE MODERATE 10/13/2010 CHARLEEN FISHER APRN 300.02 AN GEN ANXIETY 11/21/2010 Ot 611.0 INFL AM DISEASE OF BREAST 12/01/2010 CHARLEEN FISHER APRN 296.21 MO DEPRESS SINGLE MILD 12/01/2010 CHARLEEN FISHER APRN 300.00 AN ANXIETY UNSPEC 12/21/2010 CHARLEEN FISHER APRN 296.90 MO MOOD DIS NOS 05/14/2011 Ot 644.03 THR T DEJUAN LABOR- ANTEPART 05/23/2011 Ot 644.03 THR T DEJUAN LABOR- ANTEPART 06/04/2011 Ot 590.10 AC PYELONEPHRITIS NOS 06/04/2011 Ot 646.63 INFECTION- ANTEPARTUM 06/04/2011 Ot 649.03 TOB ACCO USE DISOR COMP PREG/CHILDBIRTH/P 07/20/2011 Ot 311 DEPRES SIVE DISORDER NEC 07/20/2011 Ot 648.41 MEN MADALYN DISORDER- DELIVER 07/20/2011 Ot 649.01 TOB ACCO USE DISORDER COMP PREG/CHILDBIRT 07/20/2011 Ot 663.31 COR D ENTANGLE NEC-DELIV 07/20/2011 Ot V23.49 PRE G W POOR OBSTECTRIC HISTORY 07/20/2011 Ot V27.0 DELI ESTEBAN-SINGLE LIVEBORN 11/20/2011 CHARLEEN FISHER APRN 296.32 MO DEPRESSIVE RECURRENT MODERATE 12/04/2011 Ot 944.00 BUR N NOS HAND- UNSPEC 12/04/2011 Ot E000.8 OTH ER EXTERNAL CAUSE STATUS 12/04/2011 Ot E015.2 ACT IVITIES INVOLVING COOKING AND BAKING 12/04/2011 Ot E849.0 ACC IDENT IN HOME 12/04/2011 Ot E924.8 HOT SUBSTANCE ACCID NEC 01/01/2012 CHARLEEN FISHER APRN V58.69 MEDICATION HIGH RISK 02/17/2012 Ot 708.9 URTI CARIA NOS 02/17/2012 Ot 782.1 NONS PECIF SKIN ERUPT NEC 02/17/2012 Ot 276.8 HYPO POTASSEMIA 02/17/2012 Ot 780.2 SYNC OPE AND COLLAPSE 02/19/2012 CHARLEEN FISHER APRN 304.80 SA POLYSUB DEP 03/06/2012 Ot 708.9 URTI CARIA NOS 03/06/2012 Ot 782.1 NONS PECIF SKIN ERUPT NEC 03/12/2012 Ot 611.0 INFL AM DISEASE OF BREAST 03/12/2012 Ot 709.9 SKIN DISORDER NOS 03/28/2012 Ot 842.00 SPR AIN OF WRIST NOS 03/28/2012 Ot 959.3 ELB/ FOREARM/WRST INJ NOS 03/28/2012 Ot E000.8 OTH ER EXTERNAL CAUSE STATUS 03/28/2012 Ot E849.0 ACC IDENT IN HOME 03/28/2012 Ot E885.9 FAL L FROM SLIPPING, TRIPPING, OR STUMBLI 04/07/2012 Ot 276.50 VOL UME DEPLETION, UNSPECIFIED 04/07/2012 Ot 787.03 VOM ITING ALONE 04/07/2012 Ot 787.91 A[facility]A RRHEA 04/17/2012 Ot 611.0 INFL AM DISEASE OF BREAST 05/23/2012 Ot 034.0 STRE P SORE THROAT 05/23/2012 Ot 462 ACUTE PHARYNGITIS 10/10/2012 Ot 276.51 DEH YDRATION 10/10/2012 Ot 787.03 VOM ITING ALONE 10/10/2012 Ot 787.91 A[facility] RRHEA 12/22/2012 Ot 625.9 FEM GENITAL SYMPTOMS NOS 12/22/2012 Ot 640.03 THR EATEN ABORT- ANTEPART 12/22/2012 Ot 651.03 TWI N - ANTEPART 12/22/2012 Ot V91.09 TWI N GEST, UNABLE TO DETERMINE # OF PLAC 01/31/2013 Ot 648.93 OTH CURR COND- ANTEPARTUM 01/31/2013 Ot 924.20 CON TUSION OF FOOT 01/31/2013 Ot 959.7 LOWE R LEG INJURY NOS 01/31/2013 Ot E000.8 OTH ER EXTERNAL CAUSE STATUS 01/31/2013 Ot E849.0 ACC IDENT IN HOME 01/31/2013 Ot E917.4 STA T OB W/O SUB FALL NEC 03/22/2013 STEPHANIE MORENO MD Ot 648. 93 OTH CURR COND-ANTEPARTUM 03/22/2013 STEPHANIE MORENO MD Ot 789. 00 ABDOMINAL PAIN, UNSPECIFIED SITE 03/22/2013 STEPHANIE MORENO MD Ot E000 .8 OTHER EXTERNAL CAUSE STATUS 03/22/2013 STEPHANIE MORENO MD Ot E849 .0 ACCIDENT IN HOME 03/22/2013 STEPHANIE MORENO MD Ot E880 .9 FALL ON STAIR/STEP NEC 04/06/2013 GLEN VOGEL DO Ot 242.9 0 THYROTOX NOS NO CRISIS 04/06/2013 GELN VOGEL DO Ot 591 HYDRONEPHROSIS 04/06/2013 GLEN VOGEL DO Ot 592.0 CALCULUS OF KIDNEY 04/06/2013 GLEN VOGEL DO Ot 646.8 3 PREG COMPL NEC-ANTEPART 04/06/2013 GLEN VOGEL DO Ot 648.1 3 THYROID DYSFUNC-ANTEPART 04/06/2013 GLEN VOGEL DO Ot 649.0 3 TOBACCO USE DISOR COMP PREG/CHILDBIRTH/P 05/29/2013 GLEN VOGEL DO Ot 242.0 0 TOX DIF GOITER NO CRISIS 05/29/2013 GLEN VOGEL DO Ot 591 HYDRONEPHROSIS 05/29/2013 GLEN VOGEL DO Ot 592.0 CALCULUS OF KIDNEY 05/29/2013 GLEN VOGEL DO Ot 648.1 3 THYROID DYSFUNC-ANTEPART 05/29/2013 GLEN VOGEL DO Ot 648.9 3 OTH CURR COND-ANTEPARTUM 05/29/2013 GLEN VOGEL DO Ot 651.3 3 TW PREG W/ LOSS RETEN,1 FETUS,ANT 05/29/2013 GLEN VOGEL DO Ot 791.9 ABN URINE FINDINGS NEC 05/29/2013 GLEN VOGEL DO Ot V91.0 0 TWIN GEST, UNSPEC # PLACENTA, UNSP # AMN 06/17/2013 GLEN VOGEL DO Ot 591 HYDRONEPHROSIS 06/17/2013 GLEN VOGEL DO Ot 641.1 3 PLACEN PREV HEM-ANTEPART 06/17/2013 GLEN VOGEL DO Ot 646.6 3 INFECTION-ANTEPARTUM 06/17/2013 GLEN VOGEL DO Ot 648.2 3 ANEMIA-ANTEPARTUM 07/02/2013 GLNE VOGEL DO Ot 242.0 0 TOX DIF GOITER NO CRISIS 07/02/2013 GLEN VOGEL DO Ot 285.1 AC POSTHEMORRHAG ANEMIA 07/02/2013 GLEN VOGEL DO Ot 288.6 0 LEUKOCYTOSIS, UNSPECIFIED 07/02/2013 GLEN VOGEL DO Ot 641.2 1 DEJUAN SEPAR PLACEN-DELIV 07/02/2013 GLEN VOGEL DO Ot 644.2 1 EARLY ONSET DELIVERY-DEL 07/02/2013 GLEN VOGEL DO Ot 646.8 1 PREG COMPL NEC-DELIVERED 07/02/2013 GLEN VOGEL DO Ot 648.1 1 THYROID DYSFUNC-DELIVER 07/02/2013 GLEN VOGEL DO Ot 648.2 1 ANEMIA-DELIVERED 07/02/2013 GLEN VOGEL DO Ot 649.0 1 TOBACCO USE DISORDER COMP PREG/CHILDBIRT 07/02/2013 GLEN VOGEL DO Ot 651.3 1 TW PREG W/ LOSS RETEN,1 FETUS,DEL 07/02/2013 GLEN VOGEL DO Ot 659.7 1 ABN DEL FET HT RT/RHYTHM,W OR W/O MENTIO 07/02/2013 GLEN VOGEL DO Ot V27.3 DEL-TWINS, 1 NB, 1 SB 07/02/2013 GLEN VOGEL DO Ot V91.0 9 TWIN GEST, UNABLE TO DETERMINE # OF PLAC 04/07/2016 Ot 240.9 GOIT ER NOS 04/07/2016 Ot 648.13 THY ROID DYSFUNC- ANTEPART 04/07/2016 Ot 240.9 GOIT ER NOS 04/07/2016 Ot 648.13 THY ROID DYSFUNC- ANTEPART 04/07/2016 EKNNEDY HELTON MD Ot O47.9 FALSE LABOR, UNSPECIFIED 04/07/2016 KENNEDY HELTON MD Ot Z3A.00 WEEKS OF GESTATION OF NOT SPEC 04/13/2016 KENNEDY HELTON MD Ot O47.9 FALSE LABOR, UNSPECIFIED 04/13/2016 KENNEDY HELTON MD Ot Z3A.00 WEEKS OF GESTATION OF NOT SPEC 06/06/2016 GLEN VOGEL DO Ot O26.9 3 RELATED CONDITIONS, UNSPECIFIE 06/06/2016 VOGEL DO, GLEN C Ot Z3A.0 0 WEEKS OF GESTATION OF NOT SPEC 06/08/2016 VOGEL DO, GLEN C Ot O26.9 3 RELATED CONDITIONS, UNSPECIFIE 06/08/2016 VOGEL DO, GLEN C Ot Z3A.0 0 WEEKS OF GESTATION OF NOT SPEC 06/10/2016 FENECH RED BARRIOS Ot Z34.93 ENCNTR FOR SUPRVSN OF NORMAL PREG, UNSP, 06/13/2016 JASPREET DO, GLEN C Ot O26.9 3 RELATED CONDITIONS, UNSPECIFIE 06/13/2016 VOGEL DO, GLEN C Ot Z3A.0 0 WEEKS OF GESTATION OF NOT SPEC 06/23/2016 VOGEL DO, GLEN C Ot D64.9 ANEMIA, UNSPECIFIED 06/23/2016 VOGEL DO, GLEN C Ot E03.9 HYPOTHYROIDISM, UNSPECIFIED 06/23/2016 VOGEL DO, GLEN C Ot O09.2 13 SUPRVSN OF PREG W HISTORY OF PRE-TERM LA 06/23/2016 JASPREET DO, GLEN C Ot O48.0 POST-TERM 06/23/2016 VOGEL DO, GLEN C Ot O99.0 13 ANEMIA COMPLICATING , THIRD TRI 06/23/2016 VOGEL DO, GLEN C Ot O99.2 84 ENDOCRINE, NUTRITIONAL AND METABOLIC DIS 06/23/2016 JASPREET DO, GLEN C Ot Z37.0 SINGLE LIVE 06/23/2016 JASPREET DO, GLEN C Ot Z3A.4 0 40 WEEKS GESTATION OF 06/29/2016 Ot 240.9 GOIT ER NOS 06/29/2016 Ot 648.13 THY ROID DYSFUNC- ANTEPART 04/11/2017 Ot 240.9 GOIT ER NOS 04/11/2017 Ot 648.13 THY ROID DYSFUNC- ANTEPART 04/11/2017 TEE LOPEZ MD Ot F17.210 NICOTINE DEPENDENCE, CIGARETTES, UNCOMPL 04/11/2017 TEE LOPEZ MD Ot N93 .9 ABNORMAL UTERINE AND VAGINAL BLEEDING, U 04/11/2017 TEE LOPEZ MD Ot N94 .6 DYSMENORRHEA, UNSPECIFIED 04/11/2017 Ot 240.9 GOIT ER NOS 04/11/2017 Ot 648.13 THY ROID DYSFUNC- ANTEPART 04/14/2017 TEE LOPEZ MD Ot F17.210 NICOTINE DEPENDENCE, CIGARETTES, UNCOMPL 04/14/2017 TEE LOPEZ MD Ot N93 .9 ABNORMAL UTERINE AND VAGINAL BLEEDING, U 04/14/2017 TEE LOPEZ MD Ot N94 .6 DYSMENORRHEA, UNSPECIFIED 06/18/2017 Ot 240.9 GOIT ER NOS 06/18/2017 Ot 648.13 THY ROID DYSFUNC- ANTEPART 06/18/2017 JEREMIAH VICENTE MD Ot E05.00 THYROTOXICOSIS [...] CIGARETTES, UNCOMPL 08/08/2017 PRAFUL RAY APRN Ot F32 .9 MAJOR DEPRESSIVE DISORDER, SINGLE EPISOD 08/08/2017 PRAFUL RAY APRN Ot F41 .9 ANXIETY DISORDER, UNSPECIFIED 08/08/2017 PRAFUL RAY APRN [...] ABSENCE OF OTHER ORGANS 08/21/2017 Ot 240.9 GOIT ER NOS 08/21/2017 Ot 648.13 THY ROID DYSFUNC- ANTEPART 08/29/2017 GLEN VOGEL DO Ot Z36.8 7 ENCOUNTER FOR SCREENING FOR UN 08/29/2017 JASPREET DO, GLEN C Ot Z3A.0 0 WEEKS OF GESTATION OF NOT SPEC 09/17/2017 JASPREET BARRIOS GLEN C Ot Z36.8 7 ENCOUNTER FOR SCREENING FOR UN 09/17/2017 JASPREET DO, GLEN C Ot Z3A.0 0 WEEKS OF GESTATION OF NOT SPEC 10/14/2017 JASPREET BARRIOS GLEN C Ot Z36.8 7 ENCOUNTER FOR SCREENING FOR UN 10/14/2017 VOGEL DO, GLEN C Ot Z3A.0 0 WEEKS OF GESTATION OF NOT SPEC 10/14/2017 Ot 240.9 GOIT ER NOS 10/14/2017 Ot 648.13 THY ROID DYSFUNC- ANTEPART 10/14/2017 JASPREET BARRIOS GLEN C Ot Z36.8 7 ENCOUNTER FOR SCREENING FOR UN 10/14/2017 JASPREET DOMORENOA C Ot Z3A.0 0 WEEKS OF GESTATION OF NOT SPEC 10/15/2017 Ot 240.9 GOIT ER NOS 10/15/2017 Ot 648.13 THY ROID DYSFUNC- ANTEPART 10/15/2017 JASPREET BARRIOS GLEN C Ot Z36.8 7 ENCOUNTER FOR SCREENING FOR UN 10/15/2017 JASPREET DOMORENOA C Ot Z3A.0 0 WEEKS OF GESTATION OF NOT SPEC 10/24/2017 Ot 240.9 GOIT ER NOS 10/24/2017 Ot 648.13 THY ROID DYSFUNC- ANTEPART 10/24/2017 JASPREET BARRIOS GLEN C Ot Z36.8 7 ENCOUNTER FOR SCREENING FOR UN 10/24/2017 JASPREET DO, GLEN C Ot Z3A.0 0 WEEKS OF GESTATION OF NOT SPEC 10/25/2017 VOGEL DO GLEN C Ot Z36.8 7 ENCOUNTER FOR SCREENING FOR UN 10/25/2017 VOGEL DO, GLEN C Ot Z3A.0 0 WEEKS OF GESTATION OF NOT SPEC 11/08/2017 VOGEL DO GLEN C Ot Z36.2 ENCOUNTER FOR OTHER SCREENING 11/08/2017 JASPREET BARRIOS GLEN C Ot Z3A.3 8 38 WEEKS GESTATION OF 11/28/2017 ABHISHEKECH RED BARRIOS S Ot N89.8 OTHER SPECIFIED NONINFLAMMATORY DISORDER 11/28/2017 FENECH DORED Ot O26.893 OTH RELATED CONDITIONS, THIRD 11/28/2017 RED ROMERO DO Ot Z3A.33 33 WEEKS GESTATION OF 12/02/2017 ERD ROMERO DO Ot N89.8 OTHER SPECIFIED NONINFLAMMATORY DISORDER 12/02/2017 RED ROMERO DO Ot O26.893 OTH RELATED CONDITIONS, THIRD 12/02/2017 RED ROMERO DO Ot Z3A.33 33 WEEKS GESTATION OF 01/06/2018 Ot 240.9 GOIT ER NOS 01/06/2018 Ot 648.13 THY ROID DYSFUNC- ANTEPART 01/06/2018 JASPREET DO GLEN C Ot Z36.8 7 ENCOUNTER FOR SCREENING FOR UN 01/06/2018 GLEN VOGEL DO Ot Z3A.0 0 WEEKS OF GESTATION OF NOT SPEC 01/06/2018 GLEN VOGEL DO Ot Z36.2 ENCOUNTER FOR OTHER SCREENING 01/06/2018 GLEN VOGEL DO Ot Z3A.3 8 38 WEEKS GESTATION OF 01/08/2018 GLEN VOGEL DO Ot E03.9 HYPOTHYROIDISM, UNSPECIFIED 01/08/2018 GLEN VOGEL DO Ot O12.1 4 GESTATIONAL PROTEINURIA, COMPLICATING CH 01/08/2018 GLEN VOGEL DO Ot O99.2 84 ENDOCRINE, NUTRITIONAL AND METABOLIC DIS 01/08/2018 JASPREET BARRIOS GLEN C Ot Z37.0 SINGLE LIVE 01/08/2018 GLEN VOGEL DO Ot Z3A.3 9 39 WEEKS GESTATION OF 03/21/2018 Cayden Santiago W 244.9 UNSPECIFIED HYPOTHYROIDISM 03/21/2018 Cayden Santiago W E03.9 HYPOTHYROIDISM, UNSPECIFIED 03/21/2018 Cayden Santiago W V16.41 FAMILY HISTORY OF MALIGNANT NEOPLASM OF OVARY 03/21/2018 Cayden Santiago V25.2 ENCOUNTER FOR STERILIZATION 03/21/2018 Cayden Santiago Z30.2 ENCOUNTER FOR STERILIZATION 03/21/2018 Cayden Santiago W Z80.41 FAMILY HISTORY OF MALIGNANT NEOPLASM OF OVARY 06/25/2018 Ot D64.9 ANEM IA, UNSPECIFIED 06/25/2018 Ot E03.9 HYPO THYROIDISM, UNSPECIFIED 06/25/2018 Ot F32.9 ANTHONY R DEPRESSIVE DISORDER, SINGLE EPISOD 06/25/2018 Ot F41.9 ANXI ETY DISORDER, UNSPECIFIED 06/25/2018 Ot G43.909 SC GRAINE, UNSP, NOT INTRACTABLE, WITHOUT 06/25/2018 Ot K21.9 SABA RO-ESOPHAGEAL REFLUX DISEASE WITHOUT 06/25/2018 Ot T63.301A T OXIC EFFECT OF UNSP SPIDER VENOM, ACCID 06/25/2018 Ot Z87.440 PE RSONAL HISTORY OF URINARY (TRACT) INFE 06/25/2018 Ot Z88.7 MARGRET RGY STATUS TO SERUM AND VACCINE STAT 06/25/2018 Ot Z88.8 MARGRET RGY STATUS TO OT DRUG/MEDS/BIOL SUB 06/25/2018 Ot Z90.89 ACQ UIRED ABSENCE OF OTHER ORGANS 12/22/2018 GLEN VOGEL DO Ot Z36.8 7 ENCOUNTER FOR SCREENING FOR UN 12/22/2018 GLEN VOGEL DO Ot Z3A.0 0 WEEKS OF GESTATION OF NOT SPEC 12/22/2018 GLEN VOGEL DO Ot Z36.2 ENCOUNTER FOR OTHER SCREENING 12/22/2018 GLEN VOGEL DO Ot Z3A.3 8 38 WEEKS GESTATION OF 12/24/2018 PRAFUL RAY APRN Ot D64 .9 ANEMIA, UNSPECIFIED 12/24/2018 PRAFUL RAY APRN Ot E03 .9 HYPOTHYROIDISM, UNSPECIFIED 12/24/2018 PRAFUL RAY APRN Ot F17.210 NICOTINE DEPENDENCE, CIGARETTES, UNCOMPL 12/24/2018 PRAFUL RAY APRN Ot F32 .9 MAJOR DEPRESSIVE DISORDER, SINGLE EPISOD 12/24/2018 PRAFUL RAY APRN Ot F41 .9 ANXIETY DISORDER, UNSPECIFIED 12/24/2018 PRAFUL RAY APRN Ot G43.909 MIGRAINE, UNSP, NOT INTRACTABLE, WITHOUT 12/24/2018 PRAFUL RAY APRN Ot K21 .9 GASTRO-ESOPHAGEAL REFLUX DISEASE WITHOUT 12/24/2018 PRAFUL RAY APRN Ot L02.31 CUTANEOUS ABSCESS OF BUTTOCK 12/24/2018 PRAFUL RAY APRN Ot Z87.440 PERSONAL HISTORY OF URINARY (TRACT) INFE 12/24/2018 PRAFUL RAY APRN Ot Z88 .7 ALLERGY STATUS TO SERUM AND VACCINE STAT 12/24/2018 PRAFUL RAY APRN Ot Z88 .8 ALLERGY STATUS TO OTH DRUG/MEDS/BIOL SUB 12/24/2018 PRAFUL RAY APRN Ot Z90.89 ACQUIRED ABSENCE OF OTHER ORGANS 12/24/2018 PRAFUL RAY APRN Ot Z98.890 OTHER SPECIFIED POSTPROCEDURAL STATES 12/24/2018 PRAFUL RAY APRN Ot D64 .9 ANEMIA, UNSPECIFIED 12/24/2018 PRAFUL RAY APRN Ot E03 .9 HYPOTHYROIDISM, UNSPECIFIED 12/24/2018 PRAFUL RAY APRN Ot F17.210 NICOTINE DEPENDENCE, CIGARETTES, UNCOMPL 12/24/2018 PRAFUL RAY APRN Ot F32 .9 MAJOR DEPRESSIVE DISORDER, SINGLE EPISOD 12/24/2018 PRAFUL RAY APRN Ot F41 .9 ANXIETY DISORDER, UNSPECIFIED 12/24/2018 PRAFUL RAY APRN Ot G43.909 MIGRAINE, UNSP, NOT INTRACTABLE, WITHOUT 12/24/2018 PRAFUL RAY APRN Ot K21 .9 GASTRO-ESOPHAGEAL REFLUX DISEASE WITHOUT 12/24/2018 PRAFUL RAY APRN Ot L02.31 CUTANEOUS ABSCESS OF BUTTOCK 12/24/2018 PRAFUL RAY APRN Ot Z87.440 PERSONAL HISTORY OF URINARY (TRACT) INFE 12/24/2018 PRAFUL RAY APRN Ot Z88 .7 ALLERGY STATUS TO SERUM AND VACCINE STAT 12/24/2018 PRAFUL RAY APRN Ot Z88 .8 ALLERGY STATUS TO OTH DRUG/MEDS/BIOL SUB 12/24/2018 PRAFUL RAY APRN Ot Z90.89 ACQUIRED ABSENCE OF OTHER ORGANS 12/24/2018 PRAFUL RAY APRN Ot Z98.890 OTHER SPECIFIED POSTPROCEDURAL STATES 12/24/2018 PRAFUL RAY APRN Ot D64 .9 ANEMIA, UNSPECIFIED 12/24/2018 PRAFUL RAY APRN Ot E03 .9 HYPOTHYROIDISM, UNSPECIFIED 12/24/2018 PRAFUL RAY APRN Ot F17.210 NICOTINE DEPENDENCE, CIGARETTES, UNCOMPL 12/24/2018 PRAFUL RAY APRN Ot F32 .9 MAJOR DEPRESSIVE DISORDER, SINGLE EPISOD 12/24/2018 PRAFUL RAY APRN Ot F41 .9 ANXIETY DISORDER, UNSPECIFIED 12/24/2018 PRAFUL RAY APRN Ot G43.909 MIGRAINE, UNSP, NOT INTRACTABLE, WITHOUT 12/24/2018 PRAFUL RAY APRN Ot K21 .9 GASTRO-ESOPHAGEAL REFLUX DISEASE WITHOUT 12/24/2018 PRAFUL RAY APRN Ot L02.31 CUTANEOUS ABSCESS OF BUTTOCK 12/24/2018 PRAFUL RAY APRN Ot Z87.440 PERSONAL HISTORY OF URINARY (TRACT) INFE 12/24/2018 PRAFUL RAY APRN Ot Z88 .7 ALLERGY STATUS TO SERUM AND VACCINE STAT 12/24/2018 PRAFUL RAY APRN Ot Z88 .8 ALLERGY STATUS TO OTH DRUG/MEDS/BIOL SUB 12/24/2018 PRAFLU RAY APRN Ot Z90.89 ACQUIRED ABSENCE OF OTHER ORGANS 12/24/2018 PRAFUL ARY APRN Ot Z98.890 OTHER SPECIFIED POSTPROCEDURAL STATES 12/28/2018 PRAFUL RAY APRN Ot D64 .9 ANEMIA, UNSPECIFIED 12/28/2018 PRAFUL RAY APRN Ot E03 .9 HYPOTHYROIDISM, UNSPECIFIED 12/28/2018 PRAFUL RAY APRN Ot F17.210 NICOTINE DEPENDENCE, CIGARETTES, UNCOMPL 12/28/2018 PRAFUL RAY APRN Ot F32 .9 MAJOR DEPRESSIVE DISORDER, SINGLE EPISOD 12/28/2018 PRAFUL RAY APRN Ot F41 .9 ANXIETY DISORDER, UNSPECIFIED 12/28/2018 PRAFUL RAY APRN Ot G43.909 MIGRAINE, UNSP, NOT INTRACTABLE, WITHOUT 12/28/2018 PRAFUL RAY APRN Ot K21 .9 GASTRO-ESOPHAGEAL REFLUX DISEASE WITHOUT 12/28/2018 PRAFUL RAY APRN Ot L02.31 CUTANEOUS ABSCESS OF BUTTOCK 12/28/2018 PRAFUL RAY APRN Ot Z87.440 PERSONAL HISTORY OF URINARY (TRACT) INFE 12/28/2018 PRAFUL RAY APRN Ot Z88 .7 ALLERGY STATUS TO SERUM AND VACCINE STAT 12/28/2018 PRAFUL RAY APRN Ot Z88 .8 ALLERGY STATUS TO OTH DRUG/MEDS/BIOL SUB 12/28/2018 PRAFUL RAY APRN Ot Z90.89 ACQUIRED ABSENCE OF OTHER ORGANS 12/28/2018 PRAFUL RAY APRN Ot Z98.890 OTHER SPECIFIED POSTPROCEDURAL STATES 02/03/2019 PRAFUL RAY APRN Ot D64 .9 ANEMIA, UNSPECIFIED 02/03/2019 PRAFUL RAY APRN Ot E03 .9 HYPOTHYROIDISM, UNSPECIFIED 02/03/2019 PRAFUL RAY ADVERTISING SPACE CLERK Ot F17.210 NICOTINE DEPENDENCE, CIGARETTES, UNCOMPL 02/03/2019 PRAFUL RAY APRN Ot F32 .9 MAJOR DEPRESSIVE DISORDER, SINGLE EPISOD 02/03/2019 PRAFUL RAY APRN Ot F41 .9 ANXIETY DISORDER, UNSPECIFIED 02/03/2019 PRAFUL RAY APRN Ot G43.909 MIGRAINE, UNSP, NOT INTRACTABLE, WITHOUT 02/03/2019 PRAFUL RAY APRN Ot K21 .9 GASTRO-ESOPHAGEAL REFLUX DISEASE WITHOUT 02/03/2019 PRAFUL RAY APRN Ot L02.31 CUTANEOUS ABSCESS OF BUTTOCK 02/03/2019 PRAFUL RAY APRN Ot Z87.440 PERSONAL HISTORY OF URINARY (TRACT) INFE 02/03/2019 PRAFUL RAY APRN Ot Z88 .7 ALLERGY STATUS TO SERUM AND VACCINE STAT 02/03/2019 PRAFUL RAY APRN Ot Z88 .8 ALLERGY STATUS TO OTH DRUG/MEDS/BIOL SUB 02/03/2019 PRAFUL RAY APRN Ot Z90.89 ACQUIRED ABSENCE OF OTHER ORGANS 02/03/2019 PRAFUL RAY APRN Ot Z98.890 OTHER SPECIFIED POSTPROCEDURAL STATES 03/23/2019 BENITA FERRER Ot D64.9 ANEMIA, UNSPECIFIED 03/23/2019 BENITA FERRER Ot E03.9 HYPOTHYROIDISM, UNSPECIFIED 03/23/2019 BENITA FERRER Ot F17.210 NICOTINE DEPENDENCE, CIGARETTES, UNCOMPL 03/23/2019 BENITA FERRER Ot F32.9 MAJOR DEPRESSIVE DISORDER, SINGLE EPISOD 03/23/2019 BENITA FERRER Ot F41.9 ANXIETY DISORDER, UNSPECIFIED 03/23/2019 BENITA FERRER Ot G43.109 MIGRAINE WITH AURA, NOT INTRACTABLE, W/O 03/23/2019 BENITA FERRER Ot K21.9 GASTRO-ESOPHAGEAL REFLUX DISEASE WITHOUT 03/23/2019 BENITA FERRER Ot R51 HEADACHE 03/23/2019 BENITA FERRER Ot Z87.440 PERSONAL HISTORY OF URINARY (TRACT) INFE 03/23/2019 BENITA FERRER Ot Z87.448 PERSONAL HISTORY OF OTHER DISEASES OF UR 03/23/2019 BENITA FERRER Ot Z88.7 ALLERGY STATUS TO SERUM AND VACCINE STAT 03/23/2019 BENITA FERRER Ot Z88.8 ALLERGY STATUS TO OTH DRUG/MEDS/BIOL SUB 03/23/2019 BENITA FERRER Ot Z90.89 ACQUIRED ABSENCE OF OTHER ORGANS 10/22/2019 NARA WHEAT APRN W 562 .11 DIVERTICULITIS OF COLON WITHOUT MENTION OF HEMORRHAGE 10/22/2019 NARA WHEAT APRN E03 .9 HYPOTHYROIDISM, UNSPECIFIED 10/22/2019 NARA WHEAT APRN W K57 .32 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 OR ABSCESS W/O BLEEDING 10/22/2019 NARA WHEAT APRN W Z30 .2 ENCOUNTER FOR STERILIZATION 10/22/2019 NARA WHEAT APRN W Z80 .41 FAMILY HISTORY OF MALIGNANT NEOPLASM OF OVARY Procedures Code Description Performed By Per formed On 73.09 07/18/2011 73.59 07/18/2011 31450 PSYC H IND W/MED CK 20 10/29/2012 73.09 BIB F RUPT MEMBRANES NEC 06/30/2013 73.59 MANU AL ASSIST DELIV NEC 06/30/2013 [id number] DE LIVERY OF PRODUCTS OF CONCEPTION, EXTE 06/21/2016 [id number] DE LIVERY OF PRODUCTS OF CONCEPTION, EXTE 01/06/2018 Results Test Result Range Complete urinalysis with reflex to cultu re - 06/10/16 03:10 Urine color determination YELLOW NRG Urine clarity determination SLIGHTLY CLOUDY NRG Urine pH measurement by test strip 7 5-9 Specific gravity of urine by test strip 1.010 1.016-1.022 Urine protein assay by test strip, semi-quantitative 1+ NEGATIVE Urine glucose detection by automated test strip NE GATIVE NEGATIVE Erythrocytes detection in urine sediment by light micr oscopy NEGATIVE NEGATIVE Urine ketones detection by automated test strip NE GATIVE NEGATIVE Urine nitrite detection by test strip NEGATIVE NEGATIVE Urine total bilirubin detection by test strip NEGA TIVE NEGATIVE Urine urobilinogen measurement by automated test strip (mass/volume) NORMAL NORMAL Urine leukocyte esterase detection by dipstick 2+ NEGATIVE Automated urine sediment erythrocyte cou nt by microscopy (number/high power field) NONE NRG Automated urine sediment leukocyte count by microscopy (number/high power field) RARE NRG Bacteria detection in urine sediment by light microsco py TRACE NRG Squamous epithelial cells detection in u rine sediment by light microscopy 25-50 NRG Crystals detection in urine sediment by light microsco py PRESENT NRG Casts detection in urine sediment by light microscopy NONE NRG Mucus detection in urine sediment by light microscopy NEGATIVE NRG Complete urinalysis with reflex to culture NO NRG Amorphous sediment detection in urine sediment by ligh t microscopy LARGE CARMEN URATES NRG Complete urinalysis with reflex to cultu re - 06/20/16 18:15 Urine color determination YELLOW NRG Urine clarity determination CLEAR NR G Urine pH measurement by test strip 7 5-9 Specific gravity of urine by test strip 1.010 1.016-1.022 Urine protein assay by test strip, semi-quantitative 1+ NEGATIVE Urine glucose detection by automated test strip NE GATIVE NEGATIVE Erythrocytes detection in urine sediment by light micr oscopy NEGATIVE NEGATIVE Urine ketones detection by automated test strip NE GATIVE NEGATIVE Urine nitrite detection by test strip NEGATIVE NEGATIVE Urine total bilirubin detection by test strip NEGA TIVE NEGATIVE Urine urobilinogen measurement by automated test strip (mass/volume) NORMAL NORMAL Urine leukocyte esterase detection by dipstick NEG ATIVE NEGATIVE Automated urine sediment erythrocyte cou nt by microscopy (number/high power field) NONE NRG Automated urine sediment leukocyte count by microscopy (number/high power field) NONE NRG Bacteria detection in urine sediment by light microsco py TRACE NRG Squamous epithelial cells detection in u rine sediment by light microscopy 5-10 NRG Crystals detection in urine sediment by light microsco py NONE NRG Casts detection in urine sediment by light microscopy NONE NRG Mucus detection in urine sediment by light microscopy NEGATIVE NRG Complete urinalysis with reflex to culture NO NRG Bacterial urine culture - 06/20/16 18:15 URINE CULTURE RESULTS <10,000/ML NRG Complete blood count (CBC) with automate d white blood cell (WBC) differential - 06/20/16 20:00 Blood leukocytes automated count (number/volume) 13.4 10*3/uL 4.3-11.0 Blood erythrocytes automated count (number/volume) 3.98 10*6/uL 4.35-5.85 Venous blood hemoglobin measurement (mass/volume) 11.2 g/dL 11.5-16.0 Blood hematocrit (volume fraction) 33 % 35-52 Automated erythrocyte mean corpuscular volume 84 [ foz_us] 80-99 Automated erythrocyte mean corpuscular h emoglobin (mass per erythrocyte) 28 pg 25-34 Automated erythrocyte mean corpuscular h emoglobin concentration measurement (mass/volume) 34 g/dL 32-36 Automated erythrocyte distribution width ratio 13. 8 % 10.0- 14.5 Automated blood platelet count (count/volume) 257 10*3/uL [...] 10*3 1.0-4.0 Blood monocytes automated count (number/volume) 0. 8 10*3 0.0-1.0 Automated eosinophil count 0.1 10*3/uL 0 .0-0.3 Automated blood basophil count (count/volume) 0.0 10*3/uL 0.0-0.1 Blood type T Indirect antibody screen pa holger - 06/20/16 20:00 ABO+Rh group AP NRG Transfusion band number [id number] NR Blood group antibody screen NEGATIVE NR G Complete blood count (CBC) with automate d white blood cell (WBC) differential - 06/22/16 06:13 Blood leukocytes automated count (number/volume) 15.5 10*3/uL 4.3-11.0 Blood erythrocytes automated count (number/volume) 3.81 10*6/uL 4.35-5.85 Venous blood hemoglobin measurement (mass/volume) 10.6 g/dL 11.5-16.0 Blood hematocrit (volume fraction) 32 % 35-52 Automated erythrocyte mean corpuscular volume 84 [ foz_us] 80-99 Automated erythrocyte mean corpuscular h emoglobin (mass per erythrocyte) 28 pg 25-34 Automated erythrocyte mean corpuscular h emoglobin concentration measurement (mass/volume) 33 g/dL 32-36 Automated erythrocyte distribution width ratio 13. 8 % 10.0- 14.5 Automated blood platelet count (count/volume) 227 10*3/uL [...] 10*3 1.0-4.0 Blood monocytes automated count (number/volume) 1. 0 10*3 0.0-1.0 Automated eosinophil count 0.2 10*3/uL 0 .0-0.3 Automated blood basophil count (count/volume) 0.0 10*3/uL 0.0-0.1 CBC With Differential/Platelet - 7 15:04 WBC 8.9 x10E3/uL 3.4-10.8 RBC 4.89 x10E6/uL 3.77-5.28 Hemoglobin 14.1 g/dL 11.1-15.9 Hematocrit 42.4 % 34.0-46.6 MCV 87 fL 79-97 MCH 28.8 pg 26.6-33.0 MCHC 33.3 g/dL 31.5-35.7 RDW 14.3 % 12.3-15.4 Platelets 189 x10E3/uL 150-379 Neutrophils 60 % Lymphs 34 % Monocytes 5 % Eos 1 % Basos 0 % Neutrophils (Absolute) 5.3 x10E3/uL 1.4- 7.0 Lymphs (Absolute) 3.0 x10E3/uL 0.7-3.1 Monocytes(Absolute) 0.4 x10E3/uL 0.1-0.9 Eos (Absolute) 0.1 x10E3/uL 0.0-0.4 Baso (Absolute) 0.0 x10E3/uL 0.0-0.2 Immature Granulocytes 0 % Immature Grans (Abs) 0.0 x10E3/uL 0.0-0. 1 Comp. Metabolic Panel (14) - 04/04/17 15 :04 Glucose, Serum 81 mg/dL 65-99 BUN 14 mg/dL 6-20 Creatinine, Serum 0.70 mg/dL 0.57-1.00 eGFR If NonAfricn Am 120 mL/min/1.73 >59 eGFR If Africn Am 138 mL/min/1.73 >5 9 BUN/Creatinine Ratio 20 9-23 Sodium, Serum 140 [...] uIU/mL 0.450-4.500 Complete blood count (CBC) with automate d white blood cell (WBC) differential - 04/11/17 08:27 Blood leukocytes automated count (number/volume) 7.4 10*3/uL 4.3-11.0 Blood erythrocytes automated count (number/volume) 5.06 10*6/uL 4.35-5.85 Venous blood hemoglobin measurement (mass/volume) 14.6 g/dL 11.5-16.0 Blood hematocrit (volume fraction) 44 % 35-52 Automated erythrocyte mean corpuscular volume 86 [ foz_us] 80-99 Automated erythrocyte mean corpuscular h emoglobin (mass per erythrocyte) 29 pg 25-34 Automated erythrocyte mean corpuscular h emoglobin concentration measurement (mass/volume) 34 g/dL 32-36 Automated erythrocyte distribution width ratio 14. 7 % 10.0- 14.5 Automated blood platelet count (count/volume) 193 10*3/uL [...] 10*3 1.0-4.0 Blood monocytes automated count (number/volume) 0. 5 10*3 0.0-1.0 Automated eosinophil count 0.1 10*3/uL 0 .0-0.3 Automated blood basophil count (count/volume) 0.0 10*3/uL 0.0-0.1 Complete urinalysis with reflex to cultu re - 04/11/17 08:30 Urine color determination YELLOW NRG Urine clarity determination CLEAR NR G Urine pH measurement by test strip 6 5-9 Specific gravity of urine by test strip 1.025 1.016-1.022 Urine protein assay by test strip, semi-quantitative 3+ NEGATIVE Urine glucose detection by automated test strip NE GATIVE NEGATIVE Erythrocytes detection in urine sediment by light micr oscopy 1+ NEGATIVE Urine ketones detection by automated test strip NE GATIVE NEGATIVE Urine nitrite detection by test strip NEGATIVE NEGATIVE Urine total bilirubin detection by test strip NEGA TIVE NEGATIVE Urine urobilinogen measurement by automated test strip (mass/volume) NORMAL NORMAL Urine leukocyte esterase detection by dipstick 1+ NEGATIVE Automated urine sediment erythrocyte cou nt by microscopy (number/high power field) RARE NRG Automated urine sediment leukocyte count by microscopy (number/high power field) [HPF] NRG Bacteria detection in urine sediment by light microsco py TRACE NRG Squamous epithelial cells detection in u rine sediment by light microscopy 2-5 NRG Crystals detection in urine sediment by light microsco py NONE NRG Casts detection in urine sediment by light microscopy NONE NRG Mucus detection in urine sediment by light microscopy SMALL NRG Complete urinalysis with reflex to culture NO NRG Urine beta human chorionic gonadotropin (hCG) measurement - 04/11/17 08:36 Urine beta human chorionic gonadotropin (hCG) measurem ent NEGATIVE NEGATIVE Complete urinalysis with reflex to cultu re - 08/08/17 19:20 Urine color determination YELLOW NRG Urine clarity determination CLEAR NR G Urine pH measurement by test strip 7 5-9 Specific gravity of urine by test strip 1.005 1.016-1.022 Urine protein assay by test strip, semi-quantitative 2+ NEGATIVE Urine glucose detection by automated test strip NE GATIVE NEGATIVE Erythrocytes detection in urine sediment by light micr oscopy NEGATIVE NEGATIVE Urine ketones detection by automated test strip NE GATIVE NEGATIVE Urine nitrite detection by test strip NEGATIVE NEGATIVE Urine total bilirubin detection by test strip NEGA TIVE NEGATIVE Urine urobilinogen measurement by automated test strip (mass/volume) NORMAL NORMAL Urine leukocyte esterase detection by dipstick NEG ATIVE NEGATIVE Automated urine sediment erythrocyte cou nt by microscopy (number/high power field) NONE NRG Automated urine sediment leukocyte count by microscopy (number/high power field) [HPF] NRG Bacteria detection in urine sediment by light microsco py FEW NRG Squamous epithelial cells detection in u rine sediment by light microscopy 10-25 NRG Crystals detection in urine sediment by light microsco py NONE NRG Casts detection in urine sediment by light microscopy NONE NRG Mucus detection in urine sediment by light microscopy NEGATIVE NRG Complete urinalysis with reflex to culture NO NRG Complete blood count (CBC) with automate d white blood cell (WBC) differential - 08/08/17 19:40 Blood leukocytes automated count (number/volume) 9.5 10*3/uL 4.3-11.0 Blood erythrocytes automated count (number/volume) 4.15 10*6/uL 4.35-5.85 Venous blood hemoglobin measurement (mass/volume) 12.3 g/dL 11.5-16.0 Blood hematocrit (volume fraction) 36 % 35-52 Automated erythrocyte mean corpuscular volume 86 [ foz_us] 80-99 Automated erythrocyte mean corpuscular h emoglobin (mass per erythrocyte) 30 pg 25-34 Automated erythrocyte mean corpuscular h emoglobin concentration measurement (mass/volume) 35 g/dL 32-36 Automated erythrocyte distribution width ratio 13. 3 % 10.0- 14.5 Automated blood platelet count (count/volume) 199 10*3/uL [...] 10*3 1.0-4.0 Blood monocytes automated count (number/volume) 0. 5 10*3 0.0-1.0 Automated eosinophil count 0.1 10*3/uL 0 .0-0.3 Automated blood basophil count (count/volume) 0.0 10*3/uL 0.0-0.1 Comprehensive metabolic panel - 08/08/17 19:40 Serum or plasma sodium measurement (moles/volume) 137 mmol/L 135-145 Serum or plasma potassium measurement (moles/volume) 3.1 mmol/L 3.6-5.0 Serum or plasma chloride measurement (moles/volume) 106 mmol/L 98-107 Carbon dioxide 20 mmol/L 21-32 Serum or plasma anion gap determination (moles/volume) 11 mmol/L 5-14 Serum or plasma urea nitrogen measurement (mass/volume ) 8 mg/dL 7-18 Serum or plasma creatinine measurement (mass/volume) 0.57 mg/dL 0.60-1.30 Serum or plasma urea nitrogen/creatinine mass ratio 14 NRG Serum or plasma creatinine measurement w ith calculation of estimated glomerular filtration rate > NRG Serum or plasma glucose measurement (mass/volume) 89 mg/dL 70-105 Serum or plasma calcium measurement (mass/volume) 8.8 mg/dL 8.5-10.1 Serum or plasma total bilirubin measurement (mass/volu me) 0.2 mg/dL 0.1-1.0 Serum or plasma alkaline phosphatase neville surement (enzymatic activity/volume) 42 U/L 40-136 Serum or plasma aspartate aminotransfera se measurement (enzymatic activity/volume) 7 U/L 5-34 Serum or plasma alanine aminotransferase measurement (enzymatic activity/volume) < U/L 0-55 Serum or plasma protein measurement (mass/volume) 6.6 g/dL 6.4-8.2 Serum or plasma albumin measurement (mass/volume) 3.8 g/dL 3.2-4.5 Complete urinalysis with reflex to cultu re - 11/28/17 19:00 Urine color determination YELLOW NRG Urine clarity determination CLEAR NR G Urine pH measurement by test strip 7 5-9 Specific gravity of urine by test strip 1.010 1.016-1.022 Urine protein assay by test strip, semi-quantitative 2+ NEGATIVE Urine glucose detection by automated test strip NE GATIVE NEGATIVE Erythrocytes detection in urine sediment by light micr oscopy NEGATIVE NEGATIVE Urine ketones detection by automated test strip NE GATIVE NEGATIVE Urine nitrite detection by test strip NEGATIVE NEGATIVE Urine total bilirubin detection by test strip NEGA TIVE NEGATIVE Urine urobilinogen measurement by automated test strip (mass/volume) NORMAL NORMAL Urine leukocyte esterase detection by dipstick 3+ NEGATIVE Automated urine sediment erythrocyte cou nt by microscopy (number/high power field) NONE NRG Automated urine sediment leukocyte count by microscopy (number/high power field) [HPF] NRG Bacteria detection in urine sediment by light microsco py LARGE NRG Squamous epithelial cells detection in u rine sediment by light microscopy 10-25 NRG Crystals detection in urine sediment by light microsco py NONE NRG Casts detection in urine sediment by light microscopy NONE NRG Mucus detection in urine sediment by light microscopy NEGATIVE NRG Complete urinalysis with reflex to culture YES NRG Bacterial urine culture - 11/28/17 19:00 URINE CULTURE RESULTS <10,000/ML NRG Complete urinalysis with reflex to cultu re - 11/28/17 19:45 Urine color determination YELLOW NRG Urine clarity determination CLEAR NR G Urine pH measurement by test strip 7 5-9 Specific gravity of urine by test strip 1.010 1.016-1.022 Urine protein assay by test strip, semi-quantitative 2+ NEGATIVE Urine glucose detection by automated test strip NE GATIVE NEGATIVE Erythrocytes detection in urine sediment by light micr oscopy NEGATIVE NEGATIVE Urine ketones detection by automated test strip NE GATIVE NEGATIVE Urine nitrite detection by test strip NEGATIVE NEGATIVE Urine total bilirubin detection by test strip NEGA TIVE NEGATIVE Urine urobilinogen measurement by automated test strip (mass/volume) NORMAL NORMAL Urine leukocyte esterase detection by dipstick 1+ NEGATIVE Automated urine sediment erythrocyte cou nt by microscopy (number/high power field) NONE NRG Automated urine sediment leukocyte count by microscopy (number/high power field) [HPF] NRG Bacteria detection in urine sediment by light microsco py NONE NRG Squamous epithelial cells detection in u rine sediment by light microscopy 10-25 NRG Crystals detection in urine sediment by light microsco py NONE NRG Casts detection in urine sediment by light microscopy NONE NRG Mucus detection in urine sediment by light microscopy NEGATIVE NRG Complete urinalysis with reflex to culture NO NRG Microscopic examination by wet preparati on - 11/28/17 20:20 WET PREP RESULTS Zakia CANNON NRG Complete blood count (CBC) with automate d white blood cell (WBC) differential - 01/06/18 09:30 Blood leukocytes automated count (number/volume) 19.2 10*3/uL 4.3-11.0 Blood erythrocytes automated count (number/volume) 4.36 10*6/uL 4.35-5.85 Venous blood hemoglobin measurement (mass/volume) 12.6 g/dL 11.5-16.0 Blood hematocrit (volume fraction) 37 % 35-52 Automated erythrocyte mean corpuscular volume 85 [ foz_us] 80-99 Automated erythrocyte mean corpuscular h emoglobin (mass per erythrocyte) 29 pg 25-34 Automated erythrocyte mean corpuscular h emoglobin concentration measurement (mass/volume) 34 g/dL 32-36 Automated erythrocyte distribution width ratio 14. 0 % 10.0- 14.5 Automated blood platelet count (count/volume) 308 10*3/uL [...] 10*3 1.0-4.0 Blood monocytes automated count (number/volume) 1. 0 10*3 0.0-1.0 Automated eosinophil count 0.1 10*3/uL 0 .0-0.3 Automated blood basophil count (count/volume) 0.0 10*3/uL 0.0-0.1 Complete urinalysis with reflex to cultu re - 01/06/18 09:30 Urine color determination YELLOW NRG Urine clarity determination SLIGHTLY CLOUDY NRG Urine pH measurement by test strip 6.5 5-9 Specific gravity of urine by test strip 1.015 1.016-1.022 Urine protein assay by test strip, semi-quantitative 3+ NEGATIVE Urine glucose detection by automated test strip NE GATIVE NEGATIVE Erythrocytes detection in urine sediment by light micr oscopy NEGATIVE NEGATIVE Urine ketones detection by automated test strip NE GATIVE NEGATIVE Urine nitrite detection by test strip NEGATIVE NEGATIVE Urine total bilirubin detection by test strip NEGA TIVE NEGATIVE Urine urobilinogen measurement by automated test strip (mass/volume) 1 mg/dL NORMAL Urine leukocyte esterase detection by dipstick 1+ NEGATIVE Automated urine sediment erythrocyte cou nt by microscopy (number/high power field) NONE NRG Automated urine sediment leukocyte count by microscopy (number/high power field) [HPF] NRG Bacteria detection in urine sediment by light microsco py TRACE NRG Squamous epithelial cells detection in u rine sediment by light microscopy 25-50 NRG Crystals detection in urine sediment by light microsco py NONE NRG Casts detection in urine sediment by light microscopy NONE NRG Mucus detection in urine sediment by light microscopy SMALL NRG Complete urinalysis with reflex to culture NO NRG Blood manual differential performed dete ction - 01/06/18 09:30 Blood monocytes/100 leukocytes 6 % NRG Manual blood segmented neutrophils/100 leukocytes 82 % NRG Blood band neutrophils/100 leukocytes 0 % NRG Manual blood lymphocytes/100 leukocytes 12 % NRG Manual eosinophils/100 leukocytes in nose 0 % NRG Manual blood basophils/100 leukocytes 0 % NRG Blood erythrocyte morphology finding identification NORMAL NRG Blood type T Indirect antibody screen pa holger - 01/06/18 09:30 ABO+Rh group AP NRG Transfusion band number [id number] NRG Blood group antibody screen NEGATIVE NR G Complete blood count (CBC) with automate d white blood cell (WBC) differential - 01/07/18 05:15 Blood leukocytes automated count (number/volume) 17.7 10*3/uL 4.3-11.0 Blood erythrocytes automated count (number/volume) 3.81 10*6/uL 4.35-5.85 Venous blood hemoglobin measurement (mass/volume) 11.0 g/dL 11.5-16.0 Blood hematocrit (volume fraction) 33 % 35-52 Automated erythrocyte mean corpuscular volume 86 [ foz_us] 80-99 Automated erythrocyte mean corpuscular h emoglobin (mass per erythrocyte) 29 pg 25-34 Automated erythrocyte mean corpuscular h emoglobin concentration measurement (mass/volume) 33 g/dL 32-36 Automated erythrocyte distribution width ratio 14. 0 % 10.0- 14.5 Automated blood platelet count (count/volume) 257 10*3/uL [...] 10*3 1.0-4.0 Blood monocytes automated count (number/volume) 1. 4 10*3 0.0-1.0 Automated eosinophil count 0.1 10*3/uL 0 .0-0.3 Automated blood basophil count (count/volume) 0.0 10*3/uL 0.0-0.1 THYROID STIMULATING HORMONE - 01/07/18 0 7:20 THYROID STIMULATING HORMONE 3.66 u[iU]/mL 0.35-4.94 BMP [...] - 03/21/18 09:40 Surg Path Sent to [facility] Urine Culture - 03/21/18 09:40 PRELIM CULTURE RESULTS 20,000-50,000 Normal Vagina l Alix. FINAL CULTURE RESULTS 20,000-50,000 Normal Vaginal Alix. CULTURE SOURCE cath TSH w/ FREE T4 - 09/10/18 13:36 TSH 16.47 mIU/L NRG T4, FREE 0.9 ng/dL 0.8-1.8 LIVER PANEL (LFT) - 10/09/18 10:10 PROTEIN, TOTAL 7.0 g/dL 6.1-8.1 ALBUMIN 4.5 g/dL 3.6-5.1 GLOBULIN 2.5 g/dL (calc) 1.9-3.7 ALBUMIN/GLOBULIN RATIO 1.8 (calc) 1.0-2. 5 BILIRUBIN, TOTAL 0.4 mg/dL 0.2-1.2 ALKALINE PHOSPHATASE 56 U/L 33-115 AST 11 U/L 10-30 ALT 7 U/L 6-29 BILIRUBIN, DIRECT 0.1 mg/dL < OR = 0.2 BILIRUBIN, INDIRECT 0.3 mg/dL (calc) 0.2 -1.2 TSH - 10/28/18 14:59 TSH 1.23 mIU/L NRG PDM - 09 PANEL (PROFILE 1) - 10/28/18 14 :59 Prescribed Drug 1 NRG Creatinine NRG pH NRG Oxidant NRG Amphetamines NRG medMATCH Amphetamines NRG Benzodiazepines NRG medMATCH Benzodiazepines NRG Marijuana Metabolite NRG medMATCH Marijuana Metab NRG Cocaine Metabolite NRG medMATCH Cocaine Metab NRG Opiates NRG medMATCH Opiates NRG Oxycodone NRG medMATCH Oxycodone NRG Amphetamine NRG medMATCH Amphetamine NRG Methamphetamine NRG medMATCH Methamphetamine NRG Alphahydroxyalprazolam NRG medMATCH aOH alprazolam NRG Alphahydroxymidazolam NRG medMATCH aOH midazolam NRG Alphahydroxytriazolam NRG medMATCH aOH triazolam NRG Aminoclonazepam NRG medMATCH Aminoclonazepam NRG Hydroxyethylflurazepam NRG medMATCH [place],Et flurazepam NRG Lorazepam NRG medMATCH Lorazepam NRG Nordiazepam NRG medMATCH Nordiazepam NRG Oxazepam NRG medMATCH Oxazepam NRG Temazepam NRG medMATCH Temazepam NRG Codeine NRG medMATCH Codeine NRG Hydrocodone NRG medMATCH Hydrocodone NRG Hydromorphone NRG medMATCH Hydromorphone NRG Morphine NRG medMATCH Morphine NRG Norhydrocodone NRG medMATCH Norhydrocodone NRG Prescribed Drug 2 NRG Prescribed Drug 3 NRG Prescribed Drug 4 NRG Prescribed Drug 5 NRG Specific [place] NRG Abnormal Specimen Validity Test: NRG Marijuana Metabolite NRG medMATCH Marijuana Metab NRG Benzoylecgonine NRG medMATCH Benzoylecgonine NRG Noroxycodone NRG medMATCH Noroxycodone NRG Oxycodone NRG medMATCH Oxycodone NRG Oxymorphone NRG medMATCH Oxymorphone NRG Barbiturates NRG medMATCH Barbiturates NRG Methadone Metabolite NRG medMATCH Methadone Metab NRG Phencyclidine NRG medMATCH Phencyclidine NRG Amobarbital NRG medMATCH Amobarbital NRG Butalbital NRG medMATCH Butalbital NRG Pentobarbital NRG medMATCH Pentobarbital NRG Phenobarbital NRG medMATCH Phenobarbital NRG Secobarbital NRG medMATCH Secobarbital NRG EDDP NRG medMATCH EDDP NRG Methadone NRG medMATCH Methadone NRG Phencyclidine NRG medMATCH Phencyclidine NRG Confirmation Testing Performed at: NRG Gram stain microscopy - 12/22/18 10:50 Gram stain microscopy Few Gram positive cocci in c lusters NRG Bacteria identification in wound by cult ure - 12/22/18 10:50 Bacteria identification in wound by culture [id number] NRG FREE TEXT EXTERNAL ID REPORTED 12/24/18 17:05 NRG QUANTITY OF GROWTH FEW NRG FREE TEXT ENTRY 2 SUSCEPTIBILITY REPORTED 9, 7703. NR RML Sensitivity Panel - 12/22/18 10:50 Oxacillin susceptibility test by minimum inhibitory co ncentration > NRG Gentamicin susceptibility test by minimum inhibitory c oncentration <= NRG Clindamycin susceptibility test by minimum inhibitory concentration R NRG Erythromycin susceptibility test by minimum inhibitory concentration > NRG Vancomycin susceptibility test by minimum inhibitory c oncentration 1 NRG Levofloxacin susceptibility test by minimum inhibitory concentration <= NRG Rifampin susceptibility test by minimum inhibitory con centration <= NRG Cefazolin susceptibility test by minimum inhibitory co ncentration R NRG Ciprofloxacin susceptibility test by minimum inhibitor y concentration S NRG Linezolid susceptibility test by minimum inhibitory co ncentration <= NRG Penicillin G susceptibility test by minimum inhibitory concentration 0.25 NRG Daptomycin susc LEAH <= NRG Minocycline susc LEAH <= NRG TSH w/ FREE T4 - 04/21/19 11:29 TSH 5.71 mIU/L NRG T4, FREE 1.5 ng/dL 0.8-1.8 Thyroid Stimulating Hormone - 10/22/19 0 8:25 TSH 4.45 mIU/mL 0.32-5.00 TSH w/ FREE T4 - 03/16/20 10:35 TSH 28.84 mIU/L NRG T4, FREE 0.7 ng/dL 0.8-1.8 ANEMIA PANEL - 03/16/20 10:35 IRON, TOTAL 97 mcg/dL 40-190 FERRITIN 20 ng/mL 16-154 IRON BINDING CAPACITY 394 mcg/dL (calc) 250-450 % SATURATION 25 % (calc) 16-45 CMP - 03/16/20 10:35 GLUCOSE 89 mg/dL 65-99 UREA NITROGEN (BUN) 13 mg/dL 7-25 CREATININE 0.71 mg/dL 0.50-1.10 eGFR NON-AFR. AUSTRALIAN 115 mL/min/1.73m2 > OR = 60 eGFR 133 mL/min/1.73m2 > OR = 60 BUN/CREATININE RATIO NOT APPLICABLE (calc) 6-22 SODIUM 139 mmol/L 135-146 POTASSIUM 4.1 mmol/L 3.5-5.3 CHLORIDE 102 mmol/L 98-110 CARBON DIOXIDE 28 mmol/L 20-32 CALCIUM 9.4 mg/dL 8.6-10.2 PROTEIN, TOTAL 7.1 g/dL 6.1-8.1 ALBUMIN 4.6 g/dL 3.6-5.1 GLOBULIN 2.5 g/dL (calc) 1.9-3.7 ALBUMIN/GLOBULIN RATIO 1.8 (calc) 1.0-2. 5 BILIRUBIN, TOTAL 0.4 mg/dL 0.2-1.2 ALKALINE PHOSPHATASE 58 U/L 31-125 AST 12 U/L 10-30 ALT 14 U/L 6-29 CBC - 03/16/20 10:35 WHITE BLOOD CELL COUNT 6.3 Thousand/uL 3 .8-10.8 RED BLOOD CELL COUNT 4.86 Million/uL 3.8 0-5.10 HEMOGLOBIN 14.2 g/dL 11.7-15.5 HEMATOCRIT 43.9 % 35.0-45.0 MCV 90.3 fL 80.0-100.0 MCH 29.2 pg 27.0-33.0 MCHC 32.3 g/dL 32.0-36.0 RDW 12.9 % 11.0-15.0 PLATELET COUNT 289 Thousand/uL 140-400 MPV 10.2 fL 7.5-12.5 ABSOLUTE NEUTROPHILS 3465 cells/uL 1500- 7800 ABSOLUTE LYMPHOCYTES 2356 cells/uL 850-3 900 ABSOLUTE MONOCYTES 359 cells/uL 200-950 ABSOLUTE EOSINOPHILS 101 cells/uL 15-500 ABSOLUTE BASOPHILS 19 cells/uL 0-200 NEUTROPHILS 55 % NRG LYMPHOCYTES 37.4 % NRG MONOCYTES 5.7 % NRG EOSINOPHILS 1.6 % NRG BASOPHILS 0.3 % NRG URINE PROTEIN 24 HOUR - 03/23/20 11:00 PROTEIN, TOTAL, 24 HR UR 880 mg/24 h <15 0 Encounters ACCT No. Visit Date/Time Discharge Status Pt. Type Provider Facility Loc./Unit Complaint [id number] 04/05/2017 08:06:00 Document Registration [id number] 10/22/2019 07:52:00 10/22/2019 11:15 :00 DIS Outpatient NARA WHEAT APRN [facility] ER [id number] 03/21/2018 08:08:00 03/21/2018 11:30: 00 DIS Outpatient Cayden Santiago [id number] 03/13/2018 14:19:00 03/13/2018 23:59: 00 DIS Outpatient Cayden Santiago [id number] 03/20/2018 10:20:54 Document Registration [id number] 03/19/2019 18:37:00 20:50:00 DIS Outpatient BENITA FERRER [facility] ER HEADACHE [id number] 12/22/2018 08:16:00 019 11:04:00 DIS Outpatient PRAFUL RAY APRN [facility] ER ABSCESS BUTTOCK [id number] 01/06/2018 07:51:00 018 12:00:00 DIS Inpatient GLEN VOGEL DO [facility] LDRP INDUCTION [id number] 11/28/2017 18:48:00 018 21:14:00 DIS Outpatient RED ROMERO DO [facility] WSo CONTRACTIONS,ABD PRESS URE [id number] 10/24/2017 11:58:00 017 23:59:59 CLS Outpatient GLEN VOGEL DO [facility] RAD Z36.2 EVALUATE ANATOMY [id number] 08/23/2017 12:38:00 23:59:59 CLS Outpatient GLEN VOGEL DO [facility] RAD SURVEY Z34.92 [id number] 08/08/2017 19:04:00 017 20:31:00 DIS Emergency PRAFUL RAY APRN [facility] ER LOWER BACK PAIN,17 WKS PREG [id number] 06/18/2017 08:32:00 017 09:08:00 DIS Emergency CINTHIA BRIGGS, JEREMIAH Fine [facility] ER N/V/COUGH,ACHES [id number] 04/11/2017 07:54:00 017 09:49:00 DIS Emergency JOHN BRIGGS, TEE Honeycutt [facility] ER ABD CRAMPING/BLOOD CLOT S [id number] 06/20/2016 17:09:00 016 15:10:00 DIS Inpatient GLEN VOGEL DO [facility] LDRP INDUCTION [id number] 06/10/2016 02:56:00 016 09:35:00 DIS Outpatient RED ROMERO DO [facility] WSo LOWER BACK PAIN [id number] 06/06/2016 16:07:00 016 18:00:00 DIS Outpatient GLEN VOGEL DO [facility] WSo POSSIBLE RUPTURE OF MEM BRANES [id number] 04/07/2016 12:08:00 016 14:59:00 DIS Outpatient SUNITHA BRIGGS, KENNEDY Lee [facility] WSo CONTRACTIONS [id number] 06/30/2013 05:35:00 13:10:00 DIS Inpatient VOGEL DOGLEN [facility] CONTRACTIONS/34 WKS/LAB OR [id number] 06/15/2013 02:25:00 013 09:05:00 DIS Inpatient VOGEL DOGLEN [facility] VAG BLEEDING [id number] 05/27/2013 20:10:00 10:44:00 DIS Inpatient VOGEL DOGLEN [facility] BACK PAIN/UTI [id number] 04/05/2013 11:05:00 10:45:00 DIS Inpatient VOGEL DOGLEN [facility] LOWER BACK PAIN [id number] 03/22/2013 21:52:00 23:33:00 DIS Emergency JOSH BRIGSG, STEPHANIE Chung [facility] ER FALL;19 WKS;CRAMPING [id number] 06/25/2018 18:56:00 Document Registration [id number] 04/07/2016 12:08:00 Document Registration [id number] 01/31/2013 18:51:00 Document Registration [id number] 01/23/2013 13:46:00 Document Registration [id number] 12/22/2012 17:59:00 Document Registration [id number] 10/10/2012 15:55:00 Document Registration [id number] 05/23/2012 11:05:00 Document Registration [id number] 04/17/2012 16:57:00 Document Registration [id number] 04/07/2012 22:00:00 Document Registration [id number] 03/28/2012 22:31:00 Document Registration [id number] 03/12/2012 18:44:00 Document Registration [id number] 03/06/2012 21:38:00 Document Registration [id number] 02/17/2012 20:36:00 Document Registration [id number] 02/17/2012 18:28:00 Document Registration [id number] 12/04/2011 19:52:00 Document Registration [id number] 07/17/2011 20:39:00 Document Registration [id number] 06/03/2011 20:45:00 Document Registration [id number] 05/23/2011 16:29:00 Document Registration [id number] 05/14/2011 13:46:00 Document Registration [id number] 11/21/2010 13:24:00 Document Registration [id number] 10/20/2012 14:55:00 10/20/2012 23:59: 59 CLS Outpatient CHARLEEN FISHER APRN [id number] 03/23/2020 11:00:00 03/23/2020 23:59:5 9 CLS Outpatient [facility]E [facility] [id number] 03/23/2020 11:00:00 Document Registration [id number] 03/16/2020 09:40:00 Document Registration [id number] 04/21/2019 11:20:00 Document Registration [id number] 10/28/2018 14:00:00 Document Registration [id number] 10/09/2018 09:20:00 Document Registration [id number] 09/10/2018 13:00:00 Document Registration [id number] 03/21/2018 08:08:00 Document Registration
[2020-04-04] MEDS ORDERED: HYDROcodone/APAP 5 MG/325 MG (LORTAB) TAB PO ONE (01:30)
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
[2020-04-04] MEDS ORDERED: RX-HYDROCODONE/APAP 5/325 MG #4 TAB PK PO ONE (01:53)
[2020-04-04] MEDS ORDERED: HYDR-83 PO (01:54)
[2020-04-04] MEDS ORDERED: RX-HYDROCODONE/APAP 5/325 MG #4 TAB PK PO PRN (02:00)
[2020-04-04 02:02] VITALS: BP 112/78
--- NOTE | 2020-04-04 07:43 | Diagnostic Imaging Report ---
Sacrum and coccyx at 1:52. Indication: Fell 4 views were obtained. There are no prior studies available for comparison. There is no fracture, dislocation or acute bony abnormality evident. The hip and sacroiliac joints are well maintained. Surgiclips are seen on each side of the pelvis. These may be related to tubal ligation clips. Clinical followup is recommended. The soft tissues are otherwise unremarkable. Impression: There is no evidence for an acute bony abnormality. Dictated by: Dictated on workstation # [id number]
== END 2020-04-04 02:02 | disposition home or self-care (01) ==
LOC: EDUNIT# 00:16 → ER 00:17
DX: S32.2XXA Fracture of coccyx, initial encounter for closed fracture (principal); R40.2142 Coma scale, eyes open, spontaneous, at arrival to emergency department; R40.2252 Coma scale, best verbal response, oriented, at arrival to emergency department; R40.2362 Coma scale, best motor response, obeys commands, at arrival to emergency department; F17.210 Nicotine dependence, cigarettes, uncomplicated; Z88.8 Allergy status to other drugs, medicaments and biological substances; Z88.7 Allergy status to serum and vaccine; W18.39XA Other fall on same level, initial encounter
CPT/HCPCS: 72220; 84703

== ENCOUNTER 2021-05-10 09:29 | Emergency (ER) | payer MEDICAID ==
[~2021-05-10] VITALS: Ht 175.2 cm; Wt 77.2 kg
[2021-05-10 09:58] LABS: BILIRUBIN,URINE NEGATIVE (NEGATIVE); CLARITY,URINE CLEAR; COLOR,URINE YELLOW; GLUCOSE, URINE (UA) NEGATIVE (NEGATIVE); KETONES,URINE NEGATIVE (NEGATIVE); LEUKOCYTE ESTERASE ,URINE NEGATIVE (NEGATIVE); NITRITE,URINE NEGATIVE (NEGATIVE); PROTEIN,URINE NEGATIVE (NEGATIVE)
[2021-05-10] MEDS ORDERED: fentaNYL INJ 100 MCG/2 ML AMP IVP ONE (10:00)
--- NOTE | 2021-05-10 10:04 | ED General ---
General Chief Complaint: - Urinary Stated Complaint: BACK PAIN Nursing Triage Note: AMB TO ED WITH C/O LOW BACK PAIN REPORT HER URINE IS DARK. Source of Information: Patient Exam Limitations: No Limitations History of Present Illness Date Seen by Provider: May 10, 2021 Time Seen by Provider: 09:35 Initial Comments This 30-year-old young woman presents to the emergency room with complaints of bilateral lower back pain that is not tender to palpation. Pain started about 3 days ago with no particular trigger. She reports having pain similar to this in the past when she had kidney stones. In 2012 she had a hydronephrosis noted on a renal ultrasound. No stones were identified at that time. She reports passing grit in her urine at that time suspicious for ureteral stones. She has had no fever. She is taking Tylenol for pain. Urine is dark in color. Allergies and Home Medications Allergies Coded Allergies: alprazolam (Verified Allergy, Unknown, 11/28/17) pertussis vaccine,adsorbed (Unverified Allergy, Unknown, 11/28/17) Home Medications Hydrocodone/Acetaminophen 1 Each Tablet, 1 EACH PO Q6H PRN for PAIN-BREAKTHROUGH Prescribed by: PARISH VIDES on 04/04/20 0154 Patient Home Medication List Home Medication List Reviewed: Yes Review of Systems Review of Systems Constitutional: no symptoms reported EENTM: no symptoms reported Respiratory: no symptoms reported Cardiovascular: no symptoms reported Gastrointestinal: no symptoms reported Genitourinary: see HPI : No Musculoskeletal: see HPI Skin: no symptoms reported Psychiatric/Neurological: No Symptoms Reported Hematologic/Lymphatic: No Symptoms Reported Immunological/Allergic: no symptoms reported Past Lpdlhtw-Wlkeif-Cdixcs Hx Patient Social History Tobacco Use?: Yes Tobacco type used: Cigarettes Smoking Status: Current Everyday Smoker Substance use?: No Alcohol Use?: Yes Immunizations Up To Date Tetanus Booster (TDap): Less than 5yrs PED Vaccines UTD: Yes Seasonal Allergies Seasonal Allergies: No Past Medical History Surgeries: Yes (Thyroid ablation x2 for Graves' disease) Tonsillectomy, Tubal Ligation Respiratory: No Cardiac: No Neurological: Yes Headaches /Migraines Reproductive Disorders: No Female Reproductive Disorders: Denies Sexually Transmitted Disease: No HIV/AIDS: No Genitourinary: Yes Kidney Infection, Kidney Stones, UTI-Chronic Gastrointestinal: Yes Gastroesophageal Reflux Musculoskeletal: No Endocrine: Yes Hypothyroidsim HEENT: No Cancer: No Psychosocial: No Anxiety, Depression Integumentary: No Blood Disorders: Yes (anemia) Adverse Reaction/Blood Tranf: No Family Medical History Patient reports no known family medical history. No Pertinent Family Hx Physical Exam Vital Signs Vital Signs - First Documented 05/10/21 09:35 Temp 35.4 Pulse 93 Resp 18 B/P (MAP) 148/105 (119) Pulse Ox 97 Capillary Refill : Less Than 3 Seconds Height, Weight, BMI Height: 5'9.00" Weight: 180lbs. 4.0oz. 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 Norm as Tested Skin: Normal Color, Warm/Dry Progress/Results/Core Measures Suspected Sepsis SIRS Temperature: Pulse: 93 Respiratory Rate: 18 Laboratory Tests 05/10/21 09:57: White Blood Count 7.6 Blood Pressure 148 /105 Mean: 119 Laboratory Tests 05/10/21 09:57: Creatinine 0.75, Platelet Count 291, Total Bilirubin 0.2 Results/Orders Lab Results Laboratory Tests Test 05/10/21 09:53 05/10/21 09:57 Range/Units Urine Color YELLOW Urine Clarity CLEAR Urine pH 7.0 5-9 Urine Specific [place] 1.015 L 1.016-1.022 Urine Protein NEGATIVE NEGATIVE Urine Glucose (UA) NEGATIVE NEGATIVE Urine Ketones NEGATIVE NEGATIVE Urine Nitrite NEGATIVE NEGATIVE Urine Bilirubin NEGATIVE NEGATIVE Urine Urobilinogen 0.2 < = 1.0 MG/DL Urine Leukocyte Esterase NEGATIVE NEGATIVE Urine RBC (Auto) NEGATIVE NEGATIVE Urine RBC NONE /HPF Urine WBC NONE /HPF Urine Squamous Epithelial Cells 10-25 H /HPF Urine Crystals NONE /LPF Urine Bacteria TRACE /HPF Urine Casts NONE /LPF Urine Mucus NEGATIVE /LPF Urine Culture Indicated NO White Blood Count 7.6 4.3-11.0 10^3/uL Red Blood Count 4.79 3.80-5.11 10^6/uL Hemoglobin 13.9 11.5-16.0 g/dL Hematocrit 44 35-52 % Mean Corpuscular Volume 91 80-99 fL Mean Corpuscular Hemoglobin 29 25-34 pg Mean Corpuscular Hemoglobin Concent 32 32-36 g/dL Red Cell Distribution Width 13.2 10.0-14.5 % Platelet Count 291 130-400 10^3/uL Mean Platelet Volume 9.4 9.0-12.2 fL Immature Granulocyte % (Auto) 0 % Neutrophils (%) (Auto) 59 42-75 % Lymphocytes (%) (Auto) 31 12-44 % Monocytes (%) (Auto) 7 0-12 % Eosinophils (%) (Auto) 1 0-10 % Basophils (%) (Auto) 1 0-10 % Neutrophils # (Auto) 4.5 1.8-7.8 10^3/uL Lymphocytes # (Auto) 2.4 1.0-4.0 10^3/uL Monocytes # (Auto) 0.6 0.0-1.0 10^3/uL Eosinophils # (Auto) 0.1 0.0-0.3 10^3/uL Basophils # (Auto) 0.1 0.0-0.1 10^3/uL Immature Granulocyte # (Auto) 0.0 0.0-0.1 10^3/uL Sodium Level 137 135-145 MMOL/L Potassium Level 4.1 3.6-5.0 MMOL/L Chloride Level 103 98-107 MMOL/L Carbon Dioxide Level 27 21-32 MMOL/L Anion Gap 7 5-14 MMOL/L Blood Urea Nitrogen 13 7-18 MG/DL Creatinine 0.75 0.60-1.30 MG/DL Estimat Glomerular Filtration Rate > 60 BUN/Creatinine Ratio 17 Glucose Level 74 70-105 MG/DL Calcium Level 8.9 8.5-10.1 MG/DL Corrected Calcium 9.0 8.5-10.1 MG/DL Total Bilirubin 0.2 0.1-1.0 MG/DL Aspartate Amino Transf (AST/SGOT) 12 5-34 U/L Alanine Aminotransferase (ALT/SGPT) 11 0-55 U/L Alkaline Phosphatase 59 40-136 U/L Total Protein 7.0 6.4-8.2 GM/DL Albumin 3.9 3.2-4.5 GM/DL Serum Test, Qualitative NEGATIVE NEGATIVE My Orders Orders - ALVERTO SOLIS MD Cbc With Automated Diff (05/10/21 09:46) Comprehensive Metabolic Panel (05/10/21 09:46) Hcg,Qualitative Serum (05/10/21 09:46) Ua Culture If Indicated (05/10/21 09:46) Ed Iv/Invasive Line Start (05/10/21 09:46) Fentanyl Inj (Sublimaze Injection) (05/10/21 10:00) Ketorolac Injection (Toradol Injection) (05/10/21 10:45) Medications Given in ED Current Medications Medications Dose Ordered Sig/Nick Route Start Time Stop Time Status Last Admin Dose Admin Fentanyl Citrate 50 mcg ONCE ONCE IVP 05/10/21 10:00 05/10/21 10:01 DC 05/10/21 10:00 50 MCG Ketorolac Tromethamine 15 mg ONCE ONCE IVP 05/10/21 10:45 05/10/21 10:46 DC 05/10/21 10:46 15 MG Vital Signs/I&O 05/10/21 09:35 Temp 35.4 Pulse 93 Resp 18 B/P (MAP) 148/105 (119) Pulse Ox 97 Capillary Refill : Less Than 3 Seconds Blood Pressure Mean: 119 Progress Note : Time: 10:49 Progress Note Work-up was unremarkable. Patient was initially given fentanyl for pain control followed by Toradol after review of the labs. There was no evidence of pro teinuria, renal disease, or other pathologies based on labs and urinalysis. Patient was advised to follow-up with her primary care provider if not resolved by early next week. Discharge instructions were reviewed. Departure Impression Primary Impression: Low back pain Qualified Codes: M54.5 - Low back pain Additional Impression: History of proteinuria syndrome Disposition: 01 HOME, SELF-CARE Condition: Improved Departure-Patient Inst. Decision time for Depature: 10:43 Referrals: [facility]/JOCELYN (PCP) Primary Care Physician JOE CHAMBERS (Family) Primary Care Physician Patient Instructions: Low Back Pain ED Add. Discharge Instructions: For primary pain control you may take Tylenol (acetaminophen) up to 1000 mg every 6 hours and/or ibuprofen up to 600 mg every 6 hours as needed. Gentle heat may help relax your back and alleviate pain. Avoid strenuous activity, excessive bending or squatting, or heavy lifting until pain resolves. You may use the muscle relaxer (cyclobenzaprine) as prescribed if you have muscle tension or spasm. This medication may make you drowsy so do not drive, operate machinery, or work while on this medication. Call with questions or concerns. Return to the emergency department if you have worsening symptoms, especially if you develop bowel or bladder control problems, weakness or numbness of your legs, or numbness in your groin. All discharge instructions reviewed with patient and/or family. Voiced understanding. Copy Copies To 1: AMOS HENLEY JOSHUA T MD May 10, 2021 10:04
[2021-05-10 10:09] LABS: BASOPHILS # (AUTO) 0.1 10^3/uL (0.0-0.1); BASOPHILS % (AUTO) 1 % (0-10); EOSINOPHILS # (AUTO) 0.1 10^3/uL (0.0-0.3); EOSINOPHILS % (AUTO) 1 % (0-10); HEMATOCRIT 44 % (35-52); HEMOGLOBIN 13.9 g/dL (11.5-16.0); LYMPHOCYTES # (AUTO) 2.4 10^3/uL (1.0-4.0); LYMPHOCYTES % (AUTO) 31 % (12-44); MEAN CORPUSCULAR HEMOGLOBIN 29 pg (25-34); MEAN CORPUSCULAR HGB CONC 32 g/dL (32-36); MEAN CORPUSCULAR VOLUME 91 fL (80-99); MEAN PLATELET VOLUME 9.4 fL (9.0-12.2); MONOCYTES # (AUTO) 0.6 10^3/uL (0.0-1.0); MONOCYTES % (AUTO) 7 % (0-12); NEUTROPHILS # (AUTO) 4.5 10^3/uL (1.8-7.8); NEUTROPHILS % (AUTO) 59 % (42-75); PLATELET COUNT 291 10^3/uL (130-400); WHITE BLOOD COUNT 7.6 10^3/uL (4.3-11.0)
[2021-05-10 10:18] LABS: ALBUMIN 3.9 GM/DL (3.2-4.5); CHLORIDE 103 MMOL/L (98-107); POTASSIUM 4.1 MMOL/L (3.6-5.0); SODIUM 137 MMOL/L (135-145)
[2021-05-10 10:19] LABS: CALCIUM 8.9 MG/DL (8.5-10.1)
[2021-05-10 10:20] LABS: GLUCOSE 74 MG/DL (70-105)
[2021-05-10 10:22] LABS: BILIRUBIN,TOTAL 0.2 MG/DL (0.1-1.0); CARBON DIOXIDE 27 MMOL/L (21-32)
[2021-05-10 10:22] LABS: BACTERIA,URINE TRACE /HPF
[2021-05-10 10:24] LABS: ALKALINE PHOSPHATASE 59 U/L (40-136); CREATININE SERUM 0.75 MG/DL (0.60-1.30); GFR ESTIMATED > 60
[2021-05-10 10:25] LABS: BUN/CREATININE RATIO 17
[2021-05-10 10:27] LABS: ALANINE AMINOTRANSFERASE 11 U/L (0-55)
[2021-05-10] MEDS ORDERED: KETOROLAC 30 MG/ML VIAL IVP ONE (10:45)
[2021-05-10 10:48] VITALS: BP 134/100
[2021-05-10] MEDS ORDERED: CYCL10TA9 PO (14:57)
== END 2021-05-10 10:48 | disposition home or self-care (01) ==
LOC: EDUNIT# 09:29 → ER 09:31
DX: M54.5 Low back pain (principal); F17.210 Nicotine dependence, cigarettes, uncomplicated; Z87.448 Personal history of other diseases of urinary system
CPT/HCPCS: 36415; 80053; 81000; 84703; 85025; 96374; 96375

== ENCOUNTER 2021-11-25 18:11 | Emergency (ER) | payer MEDICAID ==
[~2021-11-25] VITALS: Ht 175.3 cm; Wt 77.1 kg
[~2021-11-25 18:11] MED LIST changes: +CYCL10TA25 PO; -SULF1TAB35 PO
[2021-11-25] MEDS ORDERED: ORPHENADRINE 60 MG/2 ML (NORFLEX) AMP (ED ONLY) IM STA (18:30)
[2021-11-25] MEDS ORDERED: KETOROLAC 60 MG/2 ML VIAL IM STA (18:30)
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
--- NOTE | 2021-11-25 18:57 | Diagnostic Imaging Report ---
PROCEDURE: CT lumbar spine without contrast. TECHNIQUE: Multiple contiguous axial images were obtained through the lumbar spine without the use of intravenous contrast. Sagittal and coronal reformations were then performed. Auto Exposure Controls were utilized during the CT exam to meet ALARA standards for radiation dose reduction. INDICATION: Back pain, trauma. COMPARISON: None. FINDINGS: Alignment is normal. There is no subluxation or fracture. No significant degeneration is seen. The SI joints are symmetric. There is no osseous lesion or fluid collection. IMPRESSION: No traumatic malalignment or fracture. Dictated by: Dictated on workstation # [id number]
[2021-11-25] MEDS ORDERED: RX-CYCLOBENZAPRINE 10 MG (FLEXERIL) TAB PPK#3 PO STA (19:40)
[2021-11-25 20:21] VITALS: BP 132/85
== END 2021-11-25 20:21 | disposition home or self-care (01) ==
LOC: EDUNIT# 18:11 → ER 18:15
DX: M54.50 Low back pain, unspecified (principal); E03.9 Hypothyroidism, unspecified; G43.909 Migraine, unspecified, not intractable, without status migrainosus; Z79.890 Hormone replacement therapy; Z79.899 Other long term (current) drug therapy
CPT/HCPCS: 72131; 96372

== ENCOUNTER 2021-11-27 18:14 | Emergency (ER) | payer MEDICAID ==
[~2021-11-27] VITALS: Ht 175.3 cm; Wt 79.4 kg
[2021-11-27] MEDS ORDERED: KETOROLAC 30 MG/ML VIAL IVP STA (20:09)
[2021-11-27] MEDS ORDERED: diphenhydrAMINE 50 MG/ML INJ (BENADRYL) IVP STA (20:09)
[2021-11-27] MEDS ORDERED: PROCHLORPERAZINE 10 MG/2ML INJ (COMPAZINE) IV ONE (20:15)
[2021-11-27] MEDS ORDERED: NS IV 1000 ML 1,000 ML IV SCH (20:15)
[2021-11-27 20:59] LABS: BASOPHILS % (AUTO) 0 % (0-10); EOSINOPHILS % (AUTO) 1 % (0-10); HEMATOCRIT 40 % (35-52); LYMPHOCYTES # (AUTO) 1.5 10^3/uL (1.0-4.0); LYMPHOCYTES % (AUTO) 19 % (12-44); MEAN CORPUSCULAR HEMOGLOBIN 29 pg (25-34); MEAN CORPUSCULAR HGB CONC 32 g/dL (32-36); MEAN CORPUSCULAR VOLUME 90 fL (80-99); MEAN PLATELET VOLUME 9.9 fL (9.0-12.2); MONOCYTES # (AUTO) 0.5 10^3/uL (0.0-1.0); MONOCYTES % (AUTO) 6 % (0-12); NEUTROPHILS # (AUTO) 5.6 10^3/uL (1.8-7.8); NEUTROPHILS % (AUTO) 73 % (42-75); PLATELET COUNT 244 10^3/uL (130-400); WHITE BLOOD COUNT 7.7 10^3/uL (4.3-11.0)
--- NOTE | 2021-11-27 21:01 | ED Headache ---
General Chief Complaint: COVID19 Suspect/Confirmed Stated Complaint: RUIZ, N\\V History of Present Illness Date Seen by Provider: Nov 27, 2021 Time Seen by Provider: 20:10 Initial Comments 30-year-old female reports approximately 12-hour history of headache. She suffers from migraines at times. She is not taking any medications for this. She is supposed to be on thyroid medication but has not taken it. She had a sledding accident 2 days ago, she denies head injury at that time. She does report that her right hip and low back are feeling better. Timing/Duration: 4-6 hours Severity/Quality: moderate Location: frontal Prior Headaches/Recent Trauma: no recent headache/trauma Associated Symptoms: denies symptoms Allergies and Home Medications Allergies Coded Allergies: alprazolam (Verified Allergy, Unknown, 11/28/17) pertussis vaccine,adsorbed (Unverified Allergy, Unknown, 11/28/17) Patient Home Medication List Home Medication List Reviewed: Yes Cyclobenzaprine HCl (Cyclobenzaprine HCl) 10 Mg Tablet, 10 MG PO TID PRN for SPASMS Prescribed by: ALVERTO ADAMS on 05/10/21 1457 Hydrocodone/Acetaminophen (Hydrocodone-Acetamin 5-325 mg) 1 Each Tablet, 1 EACH PO Q6H PRN for PAIN-BREAKTHROUGH Prescribed by: PARISH VIDES on 04/04/20 0154 Levothyroxine Sodium (Levothyroxine Sodium) 50 Mcg Tablet, (Reported) Entered as Reported by: AMARI FALCON on 06/18/17 0848 Nitrofurantoin Monohyd/M-Cryst (Macrobid 100 mg Capsule) 100 Mg Capsule, 1 TAB PO BID Prescribed by: KAILEE BRADSHAW on 11/27/21 2142 Sumatriptan Succinate (Sumatriptan Succinate) 50 Mg Tablet, (Reported) Entered as Reported by: JILLIAN LEW on 03/19/19 1852 Review of Systems Review of Systems Constitutional: no symptoms reported, see HPI; No fever, No malaise, No we akness Gastrointestinal: see HPI; No diarrhea; nausea; No vomiting Psychiatric/Neurological: See HPI, Headache All Other Systems Reviewed Negative Unless Noted: Yes Past Ckmmsjt-Zlinzw-Yhoffl Hx Immunizations Up To Date Tetanus Booster (TDap): Less than 5yrs PED Vaccines UTD: Yes First/Initial COVID19 Vaccinat: NONE Second COVID19 Vaccination Jarod: NONE Third COVID19 Vaccination Date: NONE Seasonal Allergies Seasonal Allergies: No Past Medical History Surgeries: Yes (Thyroid ablation x2 for Graves' disease) Tonsillectomy, Tubal Ligation Respiratory: No Cardiac: No Neurological: Yes Headaches /Migraines Reproductive Disorders: No Female Reproductive Disorders: Denies Sexually Transmitted Disease: No HIV/AIDS: No Genitourinary: Yes Kidney Infection, Kidney Stones, UTI-Chronic Gastrointestinal: Yes Gastroesophageal Reflux Musculoskeletal: No Endocrine: Yes Hypothyroidsim HEENT: No Cancer: No Psychosocial: No Anxiety, Depression Integumentary: No Blood Disorders: Yes (anemia) Adverse Reaction/Blood Tranf: No Family Medical History Reviewed Nursing Family Hx Patient reports no known family medical history. No Pertinent Family Hx Physical Exam Vital Signs Vital Signs - First Documented 11/27/21 20:02 Temp 36.0 Pulse 65 Resp 18 B/P (MAP) 140/101 (114) Pulse Ox 100 O2 Delivery Room Air Capillary Refill : Height, Weight, BMI Height: 5'9.00" Weight: 180lbs. 4.0oz. [id number]; 25.00 BMI Method:Stated General Appearance: WD/WN, no apparent distress HEENT: PERRL/EOMI, normal ENT inspection, TMs normal, pharynx normal, photophobia Neck: non-tender, full range of motion, supple, normal inspection Cardiovascular: normal peripheral pulses, regular rate, rhythm Respiratory: chest non-tender, lungs clear, normal breath sounds Gastrointestinal: normal bowel sounds, non tender, soft Psychiatric: alert, oriented x 3, depressed affect Crainal Nerves: normal hearing, normal speech, PERRL Coordination/Gait: normal finger to nose, normal gait Skin: normal color, warm/dry Progress/Results/Core Measures Results/Orders Lab Results Laboratory Tests Test 11/27/21 20:25 11/27/21 20:33 Range/Units Urine Color YELLOW Urine Clarity SL CLOUDY Urine pH 7.5 5-9 Urine Specific [place] 1.020 1.016-1.022 Urine Protein 1+ H NEGATIVE Urine Glucose (UA) NEGATIVE NEGATIVE Urine Ketones TRACE H NEGATIVE Urine Nitrite NEGATIVE NEGATIVE Urine Bilirubin NEGATIVE NEGATIVE Urine Urobilinogen 0.2 < = 1.0 MG/DL Urine Leukocyte Esterase NEGATIVE NEGATIVE Urine RBC (Auto) NEGATIVE NEGATIVE Urine RBC RARE /HPF Urine WBC 0-2 /HPF Urine Squamous Epithelial Cells 0-2 /HPF Urine Renal Epithelial Cells NONE /HPF Urine Crystals NONE /LPF Urine Bacteria MODERATE H /HPF Urine Casts NONE /LPF Urine Mucus NEGATIVE /LPF Urine Yeast LARGE H /HPF Urine Culture Indicated YES White Blood Count 7.7 4.3-11.0 10^3/uL Red Blood Count 4.45 3.80-5.11 10^6/uL Hemoglobin 13.0 11.5-16.0 g/dL Hematocrit 40 35-52 % Mean Corpuscular Volume 90 80-99 fL Mean Corpuscular Hemoglobin 29 25-34 pg Mean Corpuscular Hemoglobin Concent 32 32-36 g/dL Red Cell Distribution Width 13.9 10.0-14.5 % Platelet Count 244 130-400 10^3/uL Mean Platelet Volume 9.9 9.0-12.2 fL Immature Granulocyte % (Auto) 0 % Neutrophils (%) (Auto) 73 42-75 % Lymphocytes (%) (Auto) 19 12-44 % Monocytes (%) (Auto) 6 0-12 % Eosinophils (%) (Auto) 1 0-10 % Basophils (%) (Auto) 0 0-10 % Neutrophils # (Auto) 5.6 1.8-7.8 10^3/uL Lymphocytes # (Auto) 1.5 1.0-4.0 10^3/uL Monocytes # (Auto) 0.5 0.0-1.0 10^3/uL Eosinophils # (Auto) 0.0 0.0-0.3 10^3/uL Basophils # (Auto) 0.0 0.0-0.1 10^3/uL Immature Granulocyte # (Auto) 0.0 0.0-0.1 10^3/uL Sodium Level 138 135-145 MMOL/L Potassium Level 3.4 L 3.6-5.0 MMOL/L Chloride Level 102 98-107 MMOL/L Carbon Dioxide Level 25 21-32 MMOL/L Anion Gap 11 5-14 MMOL/L Blood Urea Nitrogen 8 7-18 MG/DL Creatinine 0.70 0.60-1.30 MG/DL Estimat Glomerular Filtration Rate 119 BUN/Creatinine Ratio 11 Glucose Level 96 70-105 MG/DL Calcium Level 9.0 8.5-10.1 MG/DL Corrected Calcium 8.8 8.5-10.1 MG/DL Total Bilirubin 0.2 0.1-1.0 MG/DL Aspartate Amino Transf (AST/SGOT) 11 5-34 U/L Alanine Aminotransferase (ALT/SGPT) 13 0-55 U/L Alkaline Phosphatase 57 40-136 U/L Total Protein 7.3 6.4-8.2 GM/DL Albumin 4.3 3.2-4.5 GM/DL Influenza Type A Antigen NEGATIVE NEGATIVE Influenza Type B Antigen NEGATIVE NEGATIVE My Orders Orders - KAILEE BRADSHAW Cbc With Automated Diff (11/27/21 20:09) Comprehensive Metabolic Panel (11/27/21 20:09) Influenza A & B Antigens (11/27/21 20:09) Coronavirus Sars-Cov-2 So 2018 (11/27/21 20:09) Ed Iv/Invasive Line Start (11/27/21 20:09) Ns Iv 1000 Ml (Sodium Chloride 0.9%) (11/27/21 20:15) Prochlorperazine Injection (Compazine In (11/27/21 20:15) Diphenhydramine Injection (Benadryl Inje (11/27/21 20:09) Ketorolac Injection (Toradol Injection) (11/27/21 20:09) Ua Culture If Indicated (11/27/21 21:14) Urine Culture (11/27/21 20:25) Rx-Nitrofurantoin Miner (Rx-Macrobid) (11/27/21 21:38) Medications Given in ED Current Medications Medications Dose Ordered Sig/Nick Route Start Time Stop Time Status Last Admin Dose Admin Prochlorperazine Edisylate 10 mg ONCE ONCE IV 11/27/21 20:15 11/27/21 20:16 DC 11/27/21 20:42 10 MG Vital Signs/I&O 11/27/21 20:02 Temp 36.0 Pulse 65 Resp 18 B/P (MAP) 140/101 (114) Pulse Ox 100 O2 Delivery Room Air Departure Impression Primary Impression: Migraine Qualified Codes: G43.009 - Migraine without aura, not intractable, without status migrainosus Additional Impressions: UTI (urinary tract infection) Qualified Codes: N30.00 - Acute cystitis without hematuria Person under investigation for COVID-19 Disposition: 01 HOME, SELF-CARE Condition: Improved Departure-Patient Inst. Decision time for Depature: 21:40 Referrals: [facility]/JOCELYN (PCP) Primary Care Physician JOE CHAMBERS (Family) Primary Care Physician Patient Instructions: Migraines (DC), Urinary Tract Infection, Adult (DC), COVID-19 (DC) Add. Discharge Instructions: Take Excedrin Migraine at the onset of headache. Drink 16 ounces of water every 2 hours while awake. Take antibiotics for the UTI as prescribed. You may alternate between Tylenol and ibuprofen every 6 hours as needed for pain or fever. Follow-up with your primary care provider if symptoms are not improving or worsen. Quarantine to home, until we obtain your COVID results. It will take 24-48 hours. All discharge instructions reviewed with patient and/or family. Voiced understa nding. Scripts Nitrofurantoin Monohyd/M-Cryst (Macrobid 100 mg Capsule) 100 Mg Capsule 1 TAB PO BID, #10 CAP 0 Refills Prov: KAILEE BRADSHAW 11/27/21 KAILEE BRADSHAW Nov 27, 2021 21:01
[2021-11-27 21:15] LABS: ALBUMIN 4.3 GM/DL (3.2-4.5); POTASSIUM 3.4 MMOL/L (3.6-5.0)
[2021-11-27 21:17] LABS: TOTAL PROTEIN 7.3 GM/DL (6.4-8.2)
[2021-11-27 21:19] LABS: BILIRUBIN,TOTAL 0.2 MG/DL (0.1-1.0)
[2021-11-27 21:21] LABS: CREATININE SERUM 0.7 MG/DL (0.60-1.30)
[2021-11-27 21:24] LABS: BILIRUBIN,URINE NEGATIVE (NEGATIVE); CLARITY,URINE SL CLOUDY; COLOR,URINE YELLOW; GLUCOSE, URINE (UA) NEGATIVE (NEGATIVE); KETONES,URINE TRACE (NEGATIVE); LEUKOCYTE ESTERASE ,URINE NEGATIVE (NEGATIVE); NITRITE,URINE NEGATIVE (NEGATIVE); PH,URINE 7.5 (5-9); PROTEIN,URINE 1+ (NEGATIVE)
[2021-11-27 21:32] LABS: BACTERIA,URINE MODERATE /HPF; RBC,URINE RARE /HPF; SQUAMOUS EPITHELIAL CELL,UR 0-2 /HPF; WBC,URINE 0-2 /HPF; YEAST,URINE LARGE /HPF
[2021-11-27] MEDS ORDERED: RX-NITROFURANTOIN 100 MG (MACROBID) CAP PPK#2 PO STA (21:38)
[2021-11-27] MEDS ORDERED: NITR-65 PO (21:42)
[2021-11-27] MEDS ORDERED: RX-NITROFURANTOIN 100 MG (MACROBID) CAP PPK#2 PO ONE (21:56)
[2021-11-27 22:35] VITALS: BP 111/80
== END 2021-11-27 22:35 | disposition home or self-care (01) ==
LOC: EDUNIT# 18:14 → ER 18:23
DX: U07.1 COVID-19 (principal); G43.909 Migraine, unspecified, not intractable, without status migrainosus; N39.0 Urinary tract infection, site not specified; E03.9 Hypothyroidism, unspecified; Z79.890 Hormone replacement therapy
CPT/HCPCS: 36415; 80053; 81000; 85025; 87088; 87635; 87804; 96374; 96375

== ENCOUNTER 2022-03-24 20:15 | Emergency (ER) | payer MEDICAID ==
[~2022-03-24 20:15] MED LIST changes: +ACET-11 PO; -ACET1TAB43 PO
[2022-03-24] MEDS ORDERED: AMOXICILLIN 500 MG (POLYMOX) CAP PO STA (20:35)
[2022-03-24] MEDS ORDERED: PENI500T PO (20:43)
[2022-03-24] MEDS ORDERED: NAPR500T8 PO (20:43)
--- NOTE | 2022-03-24 20:44 | ED EENT ---
History of Present Illness General Chief Complaint: Dental Problems/Pain Stated Complaint: DENTAL PAIN Source: patient Exam Limitations: no limitations (JUAN MCNULTY) History of Present Illness Date Seen by Provider: March 24, 2022 Time Seen by Provider: 20:45 Initial Comments Patient is a 31-year-old female presents the ED with left upper dental pain. Dental pain over the past 4 days. Noted some swelling and purulent drainage from her tooth. She reports pain radiating to the left maxillary sinus. Denies of any trauma. She reports pain with eating. Has been taking anti- inflammatories without much improvement. Denies fever, headache, dizziness, nausea, vomiting, diarrhea. (JUAN MCNULTY) Allergies and Home Medications Allergies Coded Allergies: alprazolam (Verified Allergy, Unknown, 11/28/17) pertussis vaccine,adsorbed (Unverified Allergy, Unknown, 11/28/17) Patient Home Medication List Home Medication List Reviewed: Yes (JUAN MCNULTY) Cyclobenzaprine HCl (Cyclobenzaprine HCl) 10 Mg Tablet, 10 MG PO TID PRN for SPASMS Prescribed by: ALVERTO ADAMS on 05/10/21 1457 Hydrocodone/Acetaminophen (Hydrocodone-Acetamin 5-325 mg) 1 Each Tablet, 1 EACH PO Q6H PRN for PAIN-BREAKTHROUGH Prescribed by: PARISH VIDES on 04/04/20 0154 Levothyroxine Sodium (Levothyroxine Sodium) 50 Mcg Tablet, (Reported) Entered as Reported by: AMARI FALCON on 06/18/17 0848 Naproxen (Naproxen) 500 Mg Tablet.dr, 500 MG PO BID Prescribed by: LIZ TRIMBLE on 03/24/222042 Nitrofurantoin Monohyd/M-Cryst (Macrobid 100 mg Capsule) 100 Mg Capsule, 1 TAB PO BID Prescribed by: KAILEE BRADSHAW on 11/27/21 214 Penicillin V Potassium (Penicillin V Potassium) 500 Mg Tablet, 500 MG PO QID Prescribed by: LIZ TRIMBLE on 03/24/222042 Sumatriptan Succinate (Sumatriptan Succinate) 50 Mg Tablet, (Reported) Entered as Reported by: JILLIAN LEW on 5/9/19 1852 Review of Systems Review of Systems Constitutional: No chills, No diaphoresis, No malaise, No weakness Eyes: Denies Blurred Vision, Denies Decreased Acuity Ears: Denies Dizziness, Denies Pain, Denies Tinnitus Nose: denies congestion Mouth: denies purulent discharge, denies previous injury Throat: pain; denies swelling, denies previous injury; other (Dental pain) Respiratory: No cough, No dyspnea on exertion Gastrointestinal: No abdominal pain, No diarrhea, No nausea, No vomiting Musculoskeletal: No back pain, No joint pain Skin: No change in color, No change in hair/nails (JUAN MCNULTY) All Other Systems Reviewed Negative Unless Noted: Yes (JUAN MCNULTY) Past Njdfraj-Pxnbre-Bzejuh Hx Patient Social History Tobacco Use?: Yes Tobacco type used: Cigarettes Substance use?: No Alcohol Use?: Yes Alcohol Frequency: Couple times a week (JUAN MCNULTY) Immunizations Up To Date Tetanus Booster (TDap): Less than 5yrs PED Vaccines UTD: Yes Influenza Vaccine Up-to-Date: No; Not Current First/Initial COVID19 Vaccinat: NONE Second COVID19 Vaccination Jarod: NONE Third COVID19 Vaccination Date: NONE (JUAN MCNULTY) Seasonal Allergies Seasonal Allergies: No (JUAN MCNULTY) Past Medical History Surgery/Hospitalization HX: T/A D&C Tubal - removal Surgeries: Yes (Thyroid ablation x2 for Graves' disease) Tonsillectomy, Tubal Ligation Respiratory: No Cardiac: No Neurological: Yes Headaches /Migraines Reproductive Disorders: No Female Reproductive Disorders: Denies Sexually Transmitted Disease: No HIV/AIDS: No Genitourinary: Yes Kidney Infection, Kidney Stones, UTI-Chronic Gastrointestinal: Yes Gastroesophageal Reflux Musculoskeletal: No Endocrine: Yes Hypothyroidsim HEENT: No Cancer: No Psychosocial: No Anxiety, Depression Integumentary: No Blood Disorders: Yes (anemia) Adverse Reaction/Blood Tranf: No (JUAN MCNULTY) Family Medical History Patient reports no known family medical history. No Pertinent Family Hx (JUAN MCNULTY) Physical Exam Vital Signs Vital Signs - First Documented 03/24/22 20:25 Temp 37.0 Pulse 103 Resp 16 B/P (MAP) 135/86 (102) Pulse Ox 96 O2 Delivery Room Air ([employer] DO) Height, Weight, BMI Height: 5'9.00" Weight: 180lbs. 4.0oz. [id number]; 25.00 BMI Method:Stated General Appearance: WD/WN, no apparent distress Eyes: bilateral eye normal inspection, bilateral eye PERRL, bilateral eye EOMI, bilateral eye abnormal EOM Ears: bilateral ear auricle normal, bilateral ear canal normal, bilateral ear bleeding Nose: normal inspection, active bleeding Mouth/Throat: other (Left upper dental pain. Mild active purulent drainage from the gums. No fluctuant mass. Left maxillary sinus tenderness. No swelling, erythema or ecchymosis of the face) Neck: non-tender, full range of motion Cardiovascular: regular rate, rhythm, no edema, no gallop, no JVD Respiratory: chest non-tender, lungs clear, normal breath sounds, no respir atory distress Gastrointestinal: normal bowel sounds, non tender, soft, no organomegaly Skin: normal color, warm/dry (JUAN MCNULTY) Progress/Results/Core Measures Results/Orders Medications Given in ED Current Medications Medications Dose Ordered Sig/Nick Route Start Time Stop Time Status Last Admin Dose Admin Acetaminophen/ Hydrocodone Bitart 1 ea ONCE ONCE PO 03/24/22 20:45 03/24/22 20:46 DC 03/24/22 20:47 1 EA ([facility] DO) Vital Signs/I&O 03/24/22 03/24/22 20:25 20:50 Temp 37.0 37.0 Pulse 103 103 Resp 16 16 B/P (MAP) 135/86 (102) 135/86 Pulse Ox 96 96 O2 Delivery Room Air Room Air ([employer] DO) Departure Communication (PCP) Left upper dental swelling and dental tenderness. Active purulent drainage. No functional mass. Left maxillary sinus tenderness. Was given dose of amoxicillin and pain medication here. Will discharge with anti-inflammatories and penicillin VK. Dental outpatient follow-up. No significant facial swelling or redness. Vital signs stable. Return precaution were discussed with patient such as worsening pain, swelling or redness of the face. (JUAN MCNULTY) Impression Primary Impression: Toothache Disposition: 01 HOME, SELF-CARE Condition: Stable Departure-Patient Inst. Decision time for Depature: 20:42 (JUAN MCNULTY) Referrals: [facility]/JOCELYN (PCP) Primary Care Physician JOE CHAMBERS (Family) Primary Care Physician Patient Instructions: Dental Pain Scripts Penicillin V Potassium (Penicillin V Potassium) 500 Mg Tablet 500 MG PO QID for 7 Days, #28 TAB Prov: JUAN MCNULTY 03/24/22 Naproxen (Naproxen) 500 Mg Tablet.dr 500 MG PO BID, #20 TAB Prov: JUAN MCNULTY 03/24/22 ATTENDING PHYSICIAN NOTE: I WAS PHYSICALLY PRESENT ER PHYSICIAN, BUT I WAS NOT INVOLVED IN ANY DECISION MAKING OR ANY CARE OF THIS PATIENT. (JENIFER RICHMOND DO) JUAN MCNULTY March 24, 2022 20:44 JENIFER RICHMOND DO March 25, 2022 01:05
[2022-03-24] MEDS ORDERED: HYDROcodone/APAP 5 MG/325 MG (LORTAB) TAB PO ONE (20:45)
[2022-03-24 20:50] VITALS: BP 135/86
== END 2022-03-24 20:50 | disposition home or self-care (01) ==
LOC: EDUNIT# 20:15 → ER 20:16
DX: K08.89 Other specified disorders of teeth and supporting structures (principal); F17.210 Nicotine dependence, cigarettes, uncomplicated